=== PATIENT | female | born 1960 | race Caucasian/White ===

== ENCOUNTER 2016-08-15 13:41 | Emergency (ER) | payer BC, OTHER ==
[~2016-08-15 13:41] MED LIST: ALLEGRA PO; CELEBREX PO; CYMBALTA PO; FLUTISP; KLON0.5T PO; LIPITOR PO; PROTPAK PO; [UNRECOGNIZED DRUG - OTHER] PO
[2016-08-15] MEDS ORDERED: ONDANSETRON 4 MG ORAL DISINTEGRATING TAB (S0181) As Ordered ONE (18:21)
[2016-08-15] MEDS ORDERED: PERCOCET 5MG/325MG TAB As Ordered ONE (18:21)
--- NOTE | 2016-08-15 19:08 | REP ---
Left rib series: Five views including PA chest: History: Trauma. The patient reports breaking three ribs on the left side in December. Comparison is made with the 01/03/2016 prior rib series. Findings: There are healing fractures involving the left posterior 10th, 9th, and 8th ribs with callous formation. There is evidence of a healed or healing left lateral 7th rib fracture. No acute rib fracture is seen. There is an old healed 6th posterolateral rib fracture on the left as well. Impression: Multiple healed and healing left posterior and lateral rib fractures. The most recent fractures are the left 8th, 9th and 10th posterior ribs which show callus formation. Older left lateral 7th and 6th rib fractures are seen. These appear to be healed. No acute rib fracture is seen. Signed by Abel Barrera MD 08/15/2016 07:47 P
--- NOTE | 2016-08-15 19:20 | EDDOCDS ---
Physician Documentation [facility] Name: Juanis Arriaga Age: 55 yrs Sex: Female : 1960 Arrival Date: 08/15/2016 Time: 13:41 Bed PR Private MD: Thanh Tam J Disposition: 08/15/16 19:13 Discharged to Home/Self Care. Impression: Contusion of left front wall of thorax, Abrasion of other part of head. - Condition is Stable. - Discharge Instructions: Abrasion, Chest Contusion. - Prescriptions for Percocet 5- 325 mg Oral Tablet - take 1 tablet by ORAL route every 6 hours As needed MDD: 4 tabs; 12 tablet. - Medication Reconciliation, Local Pharmacy Hours form. - Follow up: Thanh Tam; When: Call to arrange an appointment; Reason: Recheck today's complaints, Continuance of care. - Problem is new. - Symptoms are unchanged. Historical: - Allergies: Ultracet; - Home Meds: 1. trazodone 100 mg Oral tab 1 tab nightly 2. Effexor XR 75 mg Oral cp24 once daily 3. Seroquel 100 mg Oral tab 1 tab nightly 4. clonazepam 0.5 mg Oral tab 1 tab three times a day as needed 5. metoprolol tartrate 25 mg oral tab once daily - PMHx: Ulcerative Colitis; IBS; Depression; Anxiety; - PSHx: Colon Resection; Hysterectomy; - Social history: Smoking status: Patient uses tobacco products, current every day smoker. No barriers to communication noted, The patient speaks fluent Somali, Speaks appropriately for age. - Family history: Not pertinent. - : The pt / caregiver states he / she is not on anticoagulants. Home medication list is obtained from the patient. - Exposure Risk Screening:: None identified. Vital Signs: 08/15 13:43 BP 151 / 91; Pulse 66; Resp 18 S; Temp 97.8(O); Pulse Ox 100% on R/A; Weight 63.5 kg / dd6 139.99 lbs (R); Height 5 ft. 5 in. (165.10 cm) (R); 15:55 BP 141 / 90; Pulse 63; Resp 18; Temp 98.4(TE); Pulse Ox 100% on R/A; Pain 10/10; ar3 19:14 BP 143 / 91 LA Sitting (auto/reg); Pulse 61; Resp 22; Temp 98.2(T); Pulse Ox 100% on bnb R/A; Pain 3/10; 13:43 Body Mass Index 23.30 (63.50 kg, 165.10 cm) dd6 MDM: 18:20 oxyCODONE-acetaminophen 5 mg-325 mg 1 tabs PO once ordered. mo1 18:20 Ondansetron ODT Oral Disintegrating Tablet 4 mg PO once ordered. mo1 18:20 Rib Unilat W/PA Chest Only Ordered. EDMS 18:32 Financial registration complete. gjb 18:34 [facility] Payment Agreement was scanned into [employer] and attached to record. gjb Administered Medications: 18:22 Drug: oxyCODONE-acetaminophen 1 tabs [oxycodone-acetaminophen 5 mg-325 mg tablet (1 jc4 tabs)] Route: PO; 18:23 Follow up: Response: Confirmed pt not driving. jc4 19:18 Follow up: Response: Pain is decreased pml 18:23 Drug: Ondansetron ODT 4 mg [ondansetron 4 mg disintegrating tablet (1 tabs)] Route: PO; jc4 Signatures: Dispatcher [employer] EDMS Cristel Santillan RN RN jc4 Ita Washington RN RN pml Uriah Randolph PA PA mo1 Zenia Reddy RN RN ead Beck, Gabriela gjb The chart was reviewed and I authenticate all verbal orders and agree with the evaluation and treatment provided.Attachments: 18:34 [facility] Payment Agreement gjb MTDD
--- NOTE | 2016-08-15 19:20 | EDDOCDS ---
Nurse's Notes [facility] Name: Juanis Arriaga Age: 55 yrs Sex: Female : 1960 Arrival Date: 08/15/2016 Time: 13:41 Bed PR Private MD: Thanh Tam J Diagnosis: Contusion of left front wall of thorax;Abrasion of other part of head Presentation: 08/15 13:45 Presenting complaint: Patient states: pt reports falling on ice on Monday. Abrasions ead to face and bruising to chest. Pt reports painful to take deep breath. Adult Sepsis Screening: The patient does not have new or worsening altered mentation. Patient's respiratory rate is less than 22. Systolic blood pressure is greater than 100. Patient has a qSOFA score of 0- Negative Sepsis Screen. Suicide/Homicide risk assessment- the patient denies having any suicidal and/or homicidal ideations and does not present with any other emotional, behavioral or mental health complaints. 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 Transition of care: patient was not received from another setting of care. 13:45 Acuity: SALMA Level 3 ead 13:45 Method Of Arrival: Walkin/Carried/Asstd ead Triage Assessment: 13:48 General: Appears in no apparent distress, Behavior is appropriate for age, cooperative. ead Pain: Location: anterior aspect of left upper chest and mid-sternal area Pain currently is 10 out of 10 on a pain scale. HIV screening NA for this visit Offered previously. Neurological: Level of Consciousness is awake, alert, Oriented to person, place, time. Respiratory: Airway is patent Respiratory effort is even, unlabored, Reports pain with respiration. Derm: Skin is pink, warm & dry. abrasion to forehead and bridge of nose. bruise to chest, reports falling and sliding on ice. Musculoskeletal: Reports pain in anterior aspect of left upper chest and mid-sternal area. Historical: - Allergies: Ultracet; - Home Meds: 1. trazodone 100 mg Oral tab 1 tab nightly 2. Effexor XR 75 mg Oral cp24 once daily 3. Seroquel 100 mg Oral tab 1 tab nightly 4. clonazepam 0.5 mg Oral tab 1 tab three times a day as needed 5. metoprolol tartrate 25 mg oral tab once daily - PMHx: Ulcerative Colitis; IBS; Depression; Anxiety; - PSHx: Colon Resection; Hysterectomy; - Social history: Smoking status: Patient uses tobacco products, current every day smoker. No barriers to communication noted, The patient speaks fluent Grenadian, Speaks appropriately for age. - Family history: Not pertinent. - : The pt / caregiver states he / she is not on anticoagulants. Home medication list is obtained from the patient. - Exposure Risk Screening:: None identified. Screenin:26 Screening information is obtained from the patient. Fall risk: No risks identified. jc4 Assistance ADL's: requires no assistance with activities of daily living. Abuse/DV Screen: The patient / caregiver reports he/she is: not in a situation that causes fear, pain or injury. Nutritional screening: No deficits noted. Advance Directives: Currently, there is a health care proxy, Lev Martinez, significant other. There is an active Power of Campus Administrative Assistant, Pavithra Parra, sister. home support is adequate. Assessment: 17:25 General: Appears uncomfortable, Behavior is cooperative. Pain: Pain currently is 10 out jc4 of 10 on a pain scale. Neurological: Level of Consciousness is awake, alert, Oriented to person, place, time. Respiratory: Airway is patent Respiratory effort is even, unlabored, Respiratory pattern is regular, symmetrical, Breath sounds are clear bilaterally. Derm: Skin is pink, warm & dry. Injury Description: Abrasion sustained to forehead and nose Bruise sustained to mid-sternal area is purple. 19:17 General: Appears in no apparent distress, comfortable, Behavior is appropriate for age, pml cooperative. Neurological: Level of Consciousness is awake, alert, Oriented to person, place, time. Cardiovascular: Capillary refill < 3 seconds. Respiratory: Airway is patent Respiratory effort is even, unlabored, Respiratory pattern is. GI: Abdomen is non- distended. Derm: Skin is pink, warm & dry. Vital Signs: 13:43 BP 151 / 91; Pulse 66; Resp 18 S; Temp 97.8(O); Pulse Ox 100% on R/A; Weight 63.5 kg dd6 (R); Height 5 ft. 5 in. (165.10 cm) (R); 15:55 BP 141 / 90; Pulse 63; Resp 18; Temp 98.4(TE); Pulse Ox 100% on R/A; Pain 10/10; ar3 19:14 BP 143 / 91 LA Sitting (auto/reg); Pulse 61; Resp 22; Temp 98.2(T); Pulse Ox 100% on bnb R/A; Pain 3/10; 13:43 Body Mass Index 23.30 (63.50 kg, 165.10 cm) dd6 Vitals: 13:43 Log In Time: August 15, 2016 at 13:41. dd6 ED Course: 13:42 Patient visited by Alton Martinez PCA. dd6 13:42 Thanh Tam is Private Physician. dd6 13:42 Patient moved to Waiting dd6 13:44 Patient moved to Pre RCE dd6 13:46 Triage Initiated ead 15:57 Patient visited by Shila Patricio PCA. ar3 17:22 Patient moved to Triage 1 jc4 17:23 Patient visited by Cristel Santillan RN. jc4 17:24 The patient / caregiver is instructed regarding the plan of care and ED course. jc4 17:31 Uriah Randolph PA is PHCP. mo1 17:31 Jennifer Chery MD is Attending Physician. mo1 18:19 Patient visited by Uriah Randolph PA. mo1 18:23 Patient moved to TR1 jc4 18:34 [facility] Payment Agreement was scanned into [employer] and attached to record. gjb 19:07 Patient moved to PR1 / 25 bnb 19:13 Thanh Tam is Referral Physician. mo1 19:15 Patient visited by Leta Downing PCA. bnb 19:17 No IV's were initiated during this patient's visit. No procedures done that require pml assistance. Administered Medications: 18:22 Drug: oxyCODONE-acetaminophen 1 tabs [oxycodone-acetaminophen 5 mg-325 mg tablet (1 jc4 tabs)] Route: PO; 18:23 Follow up: Response: Confirmed pt not driving. jc4 19:18 Follow up: Response: Pain is decreased pml 18:23 Drug: Ondansetron ODT 4 mg [ondansetron 4 mg disintegrating tablet (1 tabs)] Route: PO; jc4 Order Results: There are currently no results for this order. Outcome: 19:13 Discharge ordered by Provider. mo1 19:17 Discharge Assessment: Patient awake, alert and oriented x 3. No cognitive and/or pml functional deficits noted. Patient verbalized understanding of disposition instructions. patient administered narcotics - yes. Pt provided with safe discharge. The following High Risk Discharge criteria are identified: None. Discharged to home ambulatory, with significant other. Condition: good Condition: stable. Discharge instructions given to patient, Instructed on discharge instructions, follow up and referral plans. medication usage, no driving heavy equipment, Demonstrated understanding of instructions, medications, Pt was receptive of discharge instructions/ teaching. Prescriptions given X 1. No special radiology studies were completed. Property sent home with patient. 19:19 Patient left the ED. pml Signatures: Alton Martinez, RADIATION THERAPY TECHNICIAN RADIATION THERAPY TECHNICIAN dd6 Shila Patricio, RADIATION THERAPY TECHNICIAN RADIATION THERAPY TECHNICIAN ar3 Cristel Santillan RN RN jc4 Ita Washington RN RN pml Uriah Randolph PA PA mo1 Zenia Reddy RN RN ead Beck, Gabriela gjb Becker, Brittney, RADIATION THERAPY TECHNICIAN RADIATION THERAPY TECHNICIAN bnb GENEVA
--- NOTE | 2016-08-17 20:19 | EDDOCDS ---
Nurse's Notes [facility] Name: Juanis Arriaga Age: 55 yrs Sex: Female : 1960 Arrival Date: 08/15/2016 Time: 13:41 Bed PR Private MD: Thanh Tam J Diagnosis: Contusion of left front wall of thorax;Abrasion of other part of head Presentation: 08/15 13:45 Presenting complaint: Patient states: pt reports falling on ice on Monday. Abrasions ead to face and bruising to chest. Pt reports painful to take deep breath. Adult Sepsis Screening: The patient does not have new or worsening altered mentation. Patient's respiratory rate is less than 22. Systolic blood pressure is greater than 100. Patient has a qSOFA score of 0- Negative Sepsis Screen. Suicide/Homicide risk assessment- the patient denies having any suicidal and/or homicidal ideations and does not present with any other emotional, behavioral or mental health complaints. 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 Transition of care: patient was not received from another setting of care. 13:45 Acuity: SALMA Level 3 ead 13:45 Method Of Arrival: Walkin/Carried/Asstd ead Triage Assessment: 13:48 General: Appears in no apparent distress, Behavior is appropriate for age, cooperative. ead Pain: Location: anterior aspect of left upper chest and mid-sternal area Pain currently is 10 out of 10 on a pain scale. HIV screening NA for this visit Offered previously. Neurological: Level of Consciousness is awake, alert, Oriented to person, place, time. Respiratory: Airway is patent Respiratory effort is even, unlabored, Reports pain with respiration. Derm: Skin is pink, warm & dry. abrasion to forehead and bridge of nose. bruise to chest, reports falling and sliding on ice. Musculoskeletal: Reports pain in anterior aspect of left upper chest and mid-sternal area. Historical: - Allergies: Ultracet; - Home Meds: 1. trazodone 100 mg Oral tab 1 tab nightly 2. Effexor XR 75 mg Oral cp24 once daily 3. Seroquel 100 mg Oral tab 1 tab nightly 4. clonazepam 0.5 mg Oral tab 1 tab three times a day as needed 5. metoprolol tartrate 25 mg oral tab once daily - PMHx: Ulcerative Colitis; IBS; Depression; Anxiety; - PSHx: Colon Resection; Hysterectomy; - Social history: Smoking status: Patient uses tobacco products, current every day smoker. No barriers to communication noted, The patient speaks fluent Gibraltarian, Speaks appropriately for age. - Family history: Not pertinent. - : The pt / caregiver states he / she is not on anticoagulants. Home medication list is obtained from the patient. - Exposure Risk Screening:: None identified. Screenin:26 Screening information is obtained from the patient. Fall risk: No risks identified. jc4 Assistance ADL's: requires no assistance with activities of daily living. Abuse/DV Screen: The patient / caregiver reports he/she is: not in a situation that causes fear, pain or injury. Nutritional screening: No deficits noted. Advance Directives: Currently, there is a health care proxy, Lev Martinez, significant other. There is an active Power of Transit Survey Worker, Pavithra Parra, sister. home support is adequate. Assessment: 17:25 General: Appears uncomfortable, Behavior is cooperative. Pain: Pain currently is 10 out jc4 of 10 on a pain scale. Neurological: Level of Consciousness is awake, alert, Oriented to person, place, time. Respiratory: Airway is patent Respiratory effort is even, unlabored, Respiratory pattern is regular, symmetrical, Breath sounds are clear bilaterally. Derm: Skin is pink, warm & dry. Injury Description: Abrasion sustained to forehead and nose Bruise sustained to mid-sternal area is purple. 19:17 General: Appears in no apparent distress, comfortable, Behavior is appropriate for age, pml cooperative. Neurological: Level of Consciousness is awake, alert, Oriented to person, place, time. Cardiovascular: Capillary refill < 3 seconds. Respiratory: Airway is patent Respiratory effort is even, unlabored, Respiratory pattern is. GI: Abdomen is non- distended. Derm: Skin is pink, warm & dry. Vital Signs: 13:43 BP 151 / 91; Pulse 66; Resp 18 S; Temp 97.8(O); Pulse Ox 100% on R/A; Weight 63.5 kg dd6 (R); Height 5 ft. 5 in. (165.10 cm) (R); 15:55 BP 141 / 90; Pulse 63; Resp 18; Temp 98.4(TE); Pulse Ox 100% on R/A; Pain 10/10; ar3 19:14 BP 143 / 91 LA Sitting (auto/reg); Pulse 61; Resp 22; Temp 98.2(T); Pulse Ox 100% on bnb R/A; Pain 3/10; 13:43 Body Mass Index 23.30 (63.50 kg, 165.10 cm) dd6 Vitals: 13:43 Log In Time: August 15, 2016 at 13:41. dd6 ED Course: 13:42 Patient visited by Alton Martinez PCA. dd6 13:42 Thanh Tam is Private Physician. dd6 13:42 Patient moved to Waiting dd6 13:44 Patient moved to Pre RCE dd6 13:46 Triage Initiated ead 15:57 Patient visited by Shila Patricio PCA. ar3 17:22 Patient moved to Triage 1 jc4 17:23 Patient visited by Cristel Santillan RN. jc4 17:24 The patient / caregiver is instructed regarding the plan of care and ED course. jc4 17:31 Uriah Randolph PA is PHCP. mo1 17:31 Jennifer Chery MD is Attending Physician. mo1 18:19 Patient visited by Uriah Randolph PA. mo1 18:23 Patient moved to TR1 jc4 18:34 [facility] Payment Agreement was scanned into [employer] and attached to record. gjb 19:07 Patient moved to PR1 / 25 bnb 19:13 Thanh Tam is Referral Physician. mo1 19:15 Patient visited by Leta Downing PCA. bnb 19:17 No IV's were initiated during this patient's visit. No procedures done that require pml assistance. 19:45 Rib Unilat W/PA Chest Only Returned. EDMS 08/16 10:54 T-Sheet-- Draft Copy was scanned into [employer] and attached to record. gb 10:54 Radiology Report was scanned into [employer] and attached to record. gb Administered Medications: 08/15 18:22 Drug: oxyCODONE-acetaminophen 1 tabs [oxycodone-acetaminophen 5 mg-325 mg tablet (1 jc4 tabs)] Route: PO; 18:23 Follow up: Response: Confirmed pt not driving. jc4 19:18 Follow up: Response: Pain is decreased pml 18:23 Drug: Ondansetron ODT 4 mg [ondansetron 4 mg disintegrating tablet (1 tabs)] Route: PO; jc4 Order Results: Radiology Order: Rib Unilat W/PA Chest Only Test: Rib Unilat W/PA Chest Only REASON FOR EXAMINATION: Trauma; Left rib series: Five views including PA chest:; ; History: Trauma. The patient reports breaking three ribs on the left side in; December.; ; Comparison is made with the 01/03/2016 prior rib series.; ; Findings: There are healing fractures involving the left posterior 10th, 9th,; and 8th ribs with callous formation. There is evidence of a healed or healing; left lateral 7th rib fracture. No acute rib fracture is seen. There is an old; healed 6th posterolateral rib fracture on the left as well.; ; Impression:; ; Multiple healed and healing left posterior and lateral rib fractures. The most; recent fractures are the left 8th, 9th and 10th posterior ribs which show callus; formation. Older left lateral 7th and 6th rib fractures are seen. These appear; to be healed. No acute rib fracture is seen.; ; ; Signed by; Abel Barrera MD 08/15/2016 07:47 P; Outcome: 19:13 Discharge ordered by Provider. mo1 19:17 Discharge Assessment: Patient awake, alert and oriented x 3. No cognitive and/or pml functional deficits noted. Patient verbalized understanding of disposition instructions. patient administered narcotics - yes. Pt provided with safe discharge. The following High Risk Discharge criteria are identified: None. Discharged to home ambulatory, with significant other. Condition: good Condition: stable. Discharge instructions given to patient, Instructed on discharge instructions, follow up and referral plans. medication usage, no driving heavy equipment, Demonstrated understanding of instructions, medications, Pt was receptive of discharge instructions/ teaching. Prescriptions given X 1. No special radiology studies were completed. Property sent home with patient. 19:19 Patient left the ED. pml Signatures: Dispatcher [employer] EDMS Divya Blake, Reg Reg gb Alton Martinez, HOSPITAL FELLOW HOSPITAL FELLOW dd6 Shila Patricio, HOSPITAL FELLOW HOSPITAL FELLOW ar3 Cristel Santillan RN RN jc4 Ita Washington RN RN pml Uriah Randolph PA PA mo1 Zenia Reddy RN RN Hollie Brown Brittney, HOSPITAL FELLOW HOSPITAL FELLOW bnb Chart Complete MTDD
--- NOTE | 2016-08-17 20:19 | EDDOCDS ---
Physician Documentation [facility] Name: Juanis Arriaga Age: 55 yrs Sex: Female : 1960 Arrival Date: 08/15/2016 Time: 13:41 Bed PR Private MD: Thanh Tam J Disposition: 08/15/16 19:13 Discharged to Home/Self Care. Impression: Contusion of left front wall of thorax, Abrasion of other part of head. - Condition is Stable. - Discharge Instructions: Abrasion, Chest Contusion. - Prescriptions for Percocet 5- 325 mg Oral Tablet - take 1 tablet by ORAL route every 6 hours As needed MDD: 4 tabs; 12 tablet. - Medication Reconciliation, Local Pharmacy Hours form. - Follow up: Thanh Tam; When: Call to arrange an appointment; Reason: Recheck today's complaints, Continuance of care. - Problem is new. - Symptoms are unchanged. Historical: - Allergies: Ultracet; - Home Meds: 1. trazodone 100 mg Oral tab 1 tab nightly 2. Effexor XR 75 mg Oral cp24 once daily 3. Seroquel 100 mg Oral tab 1 tab nightly 4. clonazepam 0.5 mg Oral tab 1 tab three times a day as needed 5. metoprolol tartrate 25 mg oral tab once daily - PMHx: Ulcerative Colitis; IBS; Depression; Anxiety; - PSHx: Colon Resection; Hysterectomy; - Social history: Smoking status: Patient uses tobacco products, current every day smoker. No barriers to communication noted, The patient speaks fluent Belarusian, Speaks appropriately for age. - Family history: Not pertinent. - : The pt / caregiver states he / she is not on anticoagulants. Home medication list is obtained from the patient. - Exposure Risk Screening:: None identified. Vital Signs: 08/15 13:43 BP 151 / 91; Pulse 66; Resp 18 S; Temp 97.8(O); Pulse Ox 100% on R/A; Weight 63.5 kg / dd6 139.99 lbs (R); Height 5 ft. 5 in. (165.10 cm) (R); 15:55 BP 141 / 90; Pulse 63; Resp 18; Temp 98.4(TE); Pulse Ox 100% on R/A; Pain 10/10; ar3 19:14 BP 143 / 91 LA Sitting (auto/reg); Pulse 61; Resp 22; Temp 98.2(T); Pulse Ox 100% on bnb R/A; Pain 3/10; 13:43 Body Mass Index 23.30 (63.50 kg, 165.10 cm) dd6 MDM: 18:20 oxyCODONE-acetaminophen 5 mg-325 mg 1 tabs PO once ordered. mo1 18:20 Ondansetron ODT Oral Disintegrating Tablet 4 mg PO once ordered. mo1 18:20 Rib Unilat W/PA Chest Only Ordered. EDMS 18:32 Financial registration complete. [facility] 18:34 [facility] Payment Agreement was scanned into [employer] and attached to record. [facility] 08/16 10:54 T-Sheet-- Draft Copy was scanned into [employer] and attached to record. gb 10:54 Radiology Report was scanned into [employer] and attached to record. gb 20:14 ED course: dr tam faxed formal report of rib series for fu mlg. ml Administered Medications: 08/15 18:22 Drug: oxyCODONE-acetaminophen 1 tabs [oxycodone-acetaminophen 5 mg-325 mg tablet (1 jc4 tabs)] Route: PO; 18:23 Follow up: Response: Confirmed pt not driving. jc4 19:18 Follow up: Response: Pain is decreased pml 18:23 Drug: Ondansetron ODT 4 mg [ondansetron 4 mg disintegrating tablet (1 tabs)] Route: PO; jc4 Signatures: Dispatcher [employer] EDID Blaine Vargas MD MD ml Barnhardt, Gloria, Reg Reg gb Cristel Santillan RN RN jc4 Ita Washington RN RN pml O'Hagan, Michael, PA PA mo1 Zenia ReddyRN Hollie Valladares The chart was reviewed and I authenticate all verbal orders and agree with the evaluation and treatment provided.Attachments: 18:34 [facility] Payment Agreement [facility] 08/16 10:54 T-Sheet-- Draft Copy gb Chart Complete MTDD
--- NOTE | 2016-08-17 20:19 | EDDOCDS ---
Physician Documentation [facility] Name: Juanis Arriaga Age: 55 yrs Sex: Female : 1960 Arrival Date: 08/15/2016 Time: 13:41 Bed PR Private MD: Thanh Tam J Disposition: 08/15/16 19:13 Discharged to Home/Self Care. Impression: Contusion of left front wall of thorax, Abrasion of other part of head. - Condition is Stable. - Discharge Instructions: Abrasion, Chest Contusion. - Prescriptions for Percocet 5- 325 mg Oral Tablet - take 1 tablet by ORAL route every 6 hours As needed MDD: 4 tabs; 12 tablet. - Medication Reconciliation, Local Pharmacy Hours form. - Follow up: Thanh Tam; When: Call to arrange an appointment; Reason: Recheck today's complaints, Continuance of care. - Problem is new. - Symptoms are unchanged. Historical: - Allergies: Ultracet; - Home Meds: 1. trazodone 100 mg Oral tab 1 tab nightly 2. Effexor XR 75 mg Oral cp24 once daily 3. Seroquel 100 mg Oral tab 1 tab nightly 4. clonazepam 0.5 mg Oral tab 1 tab three times a day as needed 5. metoprolol tartrate 25 mg oral tab once daily - PMHx: Ulcerative Colitis; IBS; Depression; Anxiety; - PSHx: Colon Resection; Hysterectomy; - Social history: Smoking status: Patient uses tobacco products, current every day smoker. No barriers to communication noted, The patient speaks fluent Iranian, Speaks appropriately for age. - Family history: Not pertinent. - : The pt / caregiver states he / she is not on anticoagulants. Home medication list is obtained from the patient. - Exposure Risk Screening:: None identified. Vital Signs: 08/15 13:43 BP 151 / 91; Pulse 66; Resp 18 S; Temp 97.8(O); Pulse Ox 100% on R/A; Weight 63.5 kg / dd6 139.99 lbs (R); Height 5 ft. 5 in. (165.10 cm) (R); 15:55 BP 141 / 90; Pulse 63; Resp 18; Temp 98.4(TE); Pulse Ox 100% on R/A; Pain 10/10; ar3 19:14 BP 143 / 91 LA Sitting (auto/reg); Pulse 61; Resp 22; Temp 98.2(T); Pulse Ox 100% on bnb R/A; Pain 3/10; 13:43 Body Mass Index 23.30 (63.50 kg, 165.10 cm) dd6 MDM: 18:20 oxyCODONE-acetaminophen 5 mg-325 mg 1 tabs PO once ordered. mo1 18:20 Ondansetron ODT Oral Disintegrating Tablet 4 mg PO once ordered. mo1 18:20 Rib Unilat W/PA Chest Only Ordered. EDMS 18:32 Financial registration complete. [facility] 18:34 [facility] Payment Agreement was scanned into EpiSensor and attached to record. [facility] 08/16 10:54 T-Sheet-- Draft Copy was scanned into EpiSensor and attached to record. gb 10:54 Radiology Report was scanned into EpiSensor and attached to record. gb 20:14 ED course: dr tam faxed formal report of rib series for fu mlg. ml Administered Medications: 08/15 18:22 Drug: oxyCODONE-acetaminophen 1 tabs [oxycodone-acetaminophen 5 mg-325 mg tablet (1 jc4 tabs)] Route: PO; 18:23 Follow up: Response: Confirmed pt not driving. jc4 19:18 Follow up: Response: Pain is decreased pml 18:23 Drug: Ondansetron ODT 4 mg [ondansetron 4 mg disintegrating tablet (1 tabs)] Route: PO; jc4 Signatures: Dispatcher [employer] EDCA Blaine Vargas MD MD ml Barnhardt, Gloria, Reg Reg gb Cristel Santillan RN RN jc4 Ita Washington RN RN pml O'Hagan, Michael, PA PA mo1 Zenia ReddyRN Hollie Valladares The chart was reviewed and I authenticate all verbal orders and agree with the evaluation and treatment provided.Attachments: 18:34 [facility] Payment Agreement [facility] 08/16 10:54 T-Sheet-- Draft Copy gb Chart Complete MTDD
== END 2016-08-15 19:19 | disposition home or self-care (01) ==
LOC: M ED 13:41
DX: S00.81XA Abrasion of other part of head, initial encounter (principal); S20.212A Contusion of left front wall of thorax, initial encounter; W00.9XXA Unspecified fall due to ice and snow, initial encounter; Y92.89 Other specified places as the place of occurrence of the external cause; Y93.89 Activity, other specified; Y99.8 Other external cause status; K58.9 Irritable bowel syndrome, unspecified; F32.9 Major depressive disorder, single episode, unspecified; F41.9 Anxiety disorder, unspecified; Z90.79 Acquired absence of other genital organ(s); Z90.49 Acquired absence of other specified parts of digestive tract; F17.200 Nicotine dependence, unspecified, uncomplicated; Z79.899 Other long term (current) drug therapy; Z88.8 Allergy status to other drugs, medicaments and biological substances

== ENCOUNTER 2016-09-24 12:46 | Emergency (ER) | payer OTHER ==
[2016-09-24] MEDS ORDERED: KETOROLAC 30 MG/ML VIAL (J1885) As Ordered ONE (13:26)
[2016-09-24] MEDS ORDERED: methylPREDNISolone INJ 125 MG/2 ML VIAL (J2930) As Ordered ONE (13:27)
--- NOTE | 2016-09-24 14:03 | EDDOCDS ---
Nurse's Notes [facility] Name: Juanis Arriaga Age: 56 yrs Sex: Female : 1960 Arrival Date: 09/24/2016 Time: 12:46 Bed TR8 Private MD: Thanh Tam J Diagnosis: Lumbago with sciatica, right side Presentation: 09/24 12:50 Presenting complaint: Patient states: Low back pain radiates to right hip and right leg mlb1 began "several months" ago worse recently. Acute neurological deficits are not present. Mechanism of Injury: No Mechanism of Injury. Adult Sepsis Screening: The patient does not have new or worsening altered mentation. Patient's respiratory rate is less than 22. Systolic blood pressure is greater than 100. Patient has a qSOFA score of 0- Negative Sepsis Screen. Suicide/Homicide risk assessment- the patient denies having any suicidal and/or homicidal ideations and does not present with any other emotional, behavioral or mental health complaints. Status: Patient is not a executive services administrator or dependent. Transition of care: patient was not received from another setting of care. 12:50 Acuity: SALMA Level 3 mlb1 12:50 Method Of Arrival: Walkin/Carried/Asstd mlb1 Triage Assessment: 12:53 General: Appears distressed, Behavior is appropriate for age, cooperative. Pain: mlb1 Location: low back area Pain currently is 10 out of 10 on a pain scale. Pain radiates to right leg. Musculoskeletal: Range of motion intact in all extremities. 12:54 HIV screening NA for this visit Offered previously. mlb1 Historical: - Allergies: Ultracet; - Home Meds: 1. clonazepam 0.5 mg Oral tab 1 tab three times a day as needed 2. Effexor XR 75 mg Oral cp24 once daily 3. Seroquel 100 mg Oral tab 1 tab nightly 4. trazodone 100 mg Oral tab 1 tab nightly 5. metoprolol tartrate 25 mg Oral tab once daily - PMHx: Anxiety; Depression; IBS; Ulcerative Colitis; - PSHx: Colon Resection; Hysterectomy; lumbar surgery; - Social history: Smoking status: Patient uses tobacco products, light tobacco smoker. No barriers to communication noted, The patient speaks fluent Belgian, Speaks appropriately for age. - Family history: Not pertinent. - : The pt / caregiver states he / she is not on anticoagulants. Home medication list is obtained from the patient. - Exposure Risk Screening:: None identified. Screenin:59 Screening information is obtained from the patient. Fall risk: No risks identified. ms18 Assistance ADL's: requires no assistance with activities of daily living. Abuse/DV Screen: The patient / caregiver reports he/she is: not in a situation that causes fear, pain or injury. Nutritional screening: No deficits noted. Advance Directives: There is no living will. home support is adequate. Assessment: 13:59 General: Appears in no apparent distress, comfortable, Behavior is appropriate for age, ms18 cooperative, pleasant, quiet. Pain: Location: low back area Pain currently is 10 out of 10 on a pain scale. Pain began 8 months ago. Neurological: Level of Consciousness is awake, alert, obeys commands, Oriented to person, place, time. Respiratory: Airway is patent Respiratory effort is even, unlabored. Derm: Skin is pink, warm & dry. Vital Signs: 12:48 BP 149 / 82; Pulse 69; Resp 18; Temp 98.1; Pulse Ox 100% ; Weight 64.41 kg; Height 5 cmb ft. 5 in. (165.10 cm); Pain 10/10; 13:56 BP 126 / 81; Pulse 58; Resp 16; Temp 98.6(O); Pulse Ox 99% on R/A; Pain 8/10; sew 12:48 Body Mass Index 23.63 (64.41 kg, 165.10 cm) cmb Vitals: 12:48 Log In Time: September 24, 2016 at 12:46. cmb ED Course: 12:47 Patient visited by Minerva Erwin. cmb 12:47 Patient moved to Waiting cmb 12:48 Thanh Tam is Private Physician. cmb 12:49 Patient moved to Pre RCE cmb 12:50 Patient visited by Uriah Canada, SILVANA. mlb1 12:51 Triage Initiated mlb1 12:54 Patient visited by Uriah Canada RN. mlb1 12:54 Patient moved to Triage 3 mlb1 12:56 Jason Hall PA-C is [facility]. cc10 12:56 True Daniel MD is Attending Physician. cc10 13:10 Patient visited by Jason Hall PA-C. cc10 13:10 Patient visited by Jason Hall PA-C. cc10 13:17 [facility] is Referral Physician. cc10 13:34 Patient moved to PR1 / 25 ms18 13:56 Patient visited by Fozia Cox. sew 13:59 Patient moved to TR8 ms18 13:59 The patient / caregiver is instructed regarding the plan of care and ED course. Patient ms18 has correct armband on for positive identification. Property sent home with patient. :Personal belongings accompany Pt. 13:59 No IV's were initiated during this patient's visit. No procedures done that require ms18 assistance. Administered Medications: 13:34 Drug: methylPREDNISolone Sodium Succinate 125 mg [methylprednisolone sodium succ 125 mg ms18 solution for injection (125 mg)] Route: IM; Site: left gluteus; 13:34 Drug: ketorolac 60 mg [ketorolac 30 mg/mL (1 mL) injection solution (2 mL)] Route: IM; ms18 Site: left gluteus; Order Results: There are currently no results for this order. Outcome: 13:18 Discharge ordered by Provider. cc10 13:59 Discharge Assessment: patient administered narcotics - no. The following High Risk ms18 Discharge criteria are identified: None. Discharged to home ambulatory, via wheelchair. Condition: good Condition: stable Condition: improved. Discharge instructions given to patient, Instructed on discharge instructions, follow up and referral plans. medication usage, Demonstrated understanding of instructions, medications, Pt was receptive of discharge instructions/ teaching. Prescriptions given X 2. No special radiology studies were completed. 14:03 Patient left the ED. ms18 Signatures: Uriah Canada, RN RN mlb1 Minerva Erwin cmb Fozia Cox Colin, PA-C PA-C cc10 Leti Lerma,SILVANA RN ms18 MTDD
--- NOTE | 2016-09-24 14:04 | EDDOCDS ---
Physician Documentation [facility] Name: Juanis Arriaga Age: 56 yrs Sex: Female : 1960 Arrival Date: 09/24/2016 Time: 12:46 Bed TR8 Private MD: Thanh Tam J Disposition: 09/24/16 13:18 Discharged to Home/Self Care. Impression: Lumbago with sciatica, right side. - Condition is Stable. - Discharge Instructions: Sciatica. - Prescriptions for Diclofenac Sodium 75 mg Oral Tablet, Delayed Release (E.C.) - take 1 tablet by ORAL route 2 times per day; 30 tablet. Prednisone 20 mg Oral Tablet - take 2 tablet by ORAL route once daily for 5 days; 10 tablet. - Medication Reconciliation form. - Follow up: [facility]; When: Call to arrange an appointment; Reason: Wound/Symptom Recheck, Recheck today's complaints, Worsening of conditions, Continuance of care. - Problem is chronic. - Symptoms have improved. Historical: - Allergies: Ultracet; - Home Meds: 1. clonazepam 0.5 mg Oral tab 1 tab three times a day as needed 2. Effexor XR 75 mg Oral cp24 once daily 3. Seroquel 100 mg Oral tab 1 tab nightly 4. trazodone 100 mg Oral tab 1 tab nightly 5. metoprolol tartrate 25 mg Oral tab once daily - PMHx: Anxiety; Depression; IBS; Ulcerative Colitis; - PSHx: Colon Resection; Hysterectomy; lumbar surgery; - Social history: Smoking status: Patient uses tobacco products, light tobacco smoker. No barriers to communication noted, The patient speaks fluent Upper Sorbian, Speaks appropriately for age. - Family history: Not pertinent. - : The pt / caregiver states he / she is not on anticoagulants. Home medication list is obtained from the patient. - Exposure Risk Screening:: None identified. Vital Signs: 09/24 12:48 BP 149 / 82; Pulse 69; Resp 18; Temp 98.1; Pulse Ox 100% ; Weight 64.41 kg / 142 lbs; cmb Height 5 ft. 5 in. (165.10 cm); Pain 10/10; 13:56 BP 126 / 81; Pulse 58; Resp 16; Temp 98.6(O); Pulse Ox 99% on R/A; Pain 8/10; sew 12:48 Body Mass Index 23.63 (64.41 kg, 165.10 cm) cmb MDM: 13:17 methylPREDNISolone Sodium Succinate 125 mg IM once ordered. cc10 13:17 ketorolac 60 mg IM once ordered. cc10 13:56 Financial registration complete. mm15 Administered Medications: 13:34 Drug: methylPREDNISolone Sodium Succinate 125 mg [methylprednisolone sodium succ 125 mg ms18 solution for injection (125 mg)] Route: IM; Site: left gluteus; 13:34 Drug: ketorolac 60 mg [ketorolac 30 mg/mL (1 mL) injection solution (2 mL)] Route: IM; ms18 Site: left gluteus; Signatures: Uriah Canada RN RN mlb1 Ruth Armando mm15 Jason Hall PA-C PAJannie cc10 Leti Lerma RN RN ms18 MTDD
--- NOTE | 2016-09-26 15:04 | EDDOCDS ---
Nurse's Notes [facility] Name: Juanis Arriaga Age: 56 yrs Sex: Female : 1960 Arrival Date: 09/24/2016 Time: 12:46 Bed TR8 Private MD: Thanh Tam J Diagnosis: Lumbago with sciatica, right side Presentation: 09/24 12:50 Presenting complaint: Patient states: Low back pain radiates to right hip and right leg mlb1 began "several months" ago worse recently. Acute neurological deficits are not present. Mechanism of Injury: No Mechanism of Injury. Adult Sepsis Screening: The patient does not have new or worsening altered mentation. Patient's respiratory rate is less than 22. Systolic blood pressure is greater than 100. Patient has a qSOFA score of 0- Negative Sepsis Screen. Suicide/Homicide risk assessment- the patient denies having any suicidal and/or homicidal ideations and does not present with any other emotional, behavioral or mental health complaints. Status: Patient is not a director clinical information services or dependent. Transition of care: patient was not received from another setting of care. 12:50 Acuity: SALMA Level 3 mlb1 12:50 Method Of Arrival: Walkin/Carried/Asstd mlb1 Triage Assessment: 12:53 General: Appears distressed, Behavior is appropriate for age, cooperative. Pain: mlb1 Location: low back area Pain currently is 10 out of 10 on a pain scale. Pain radiates to right leg. Musculoskeletal: Range of motion intact in all extremities. 12:54 HIV screening NA for this visit Offered previously. mlb1 Historical: - Allergies: Ultracet; - Home Meds: 1. clonazepam 0.5 mg Oral tab 1 tab three times a day as needed 2. Effexor XR 75 mg Oral cp24 once daily 3. Seroquel 100 mg Oral tab 1 tab nightly 4. trazodone 100 mg Oral tab 1 tab nightly 5. metoprolol tartrate 25 mg Oral tab once daily - PMHx: Anxiety; Depression; IBS; Ulcerative Colitis; - PSHx: Colon Resection; Hysterectomy; lumbar surgery; - Social history: Smoking status: Patient uses tobacco products, light tobacco smoker. No barriers to communication noted, The patient speaks fluent Kazakh, Speaks appropriately for age. - Family history: Not pertinent. - : The pt / caregiver states he / she is not on anticoagulants. Home medication list is obtained from the patient. - Exposure Risk Screening:: None identified. Screenin:59 Screening information is obtained from the patient. Fall risk: No risks identified. ms18 Assistance ADL's: requires no assistance with activities of daily living. Abuse/DV Screen: The patient / caregiver reports he/she is: not in a situation that causes fear, pain or injury. Nutritional screening: No deficits noted. Advance Directives: There is no living will. home support is adequate. Assessment: 13:59 General: Appears in no apparent distress, comfortable, Behavior is appropriate for age, ms18 cooperative, pleasant, quiet. Pain: Location: low back area Pain currently is 10 out of 10 on a pain scale. Pain began 8 months ago. Neurological: Level of Consciousness is awake, alert, obeys commands, Oriented to person, place, time. Respiratory: Airway is patent Respiratory effort is even, unlabored. Derm: Skin is pink, warm & dry. Vital Signs: 12:48 BP 149 / 82; Pulse 69; Resp 18; Temp 98.1; Pulse Ox 100% ; Weight 64.41 kg; Height 5 cmb ft. 5 in. (165.10 cm); Pain 10/10; 13:56 BP 126 / 81; Pulse 58; Resp 16; Temp 98.6(O); Pulse Ox 99% on R/A; Pain 8/10; sew 12:48 Body Mass Index 23.63 (64.41 kg, 165.10 cm) cmb Vitals: 12:48 Log In Time: September 24, 2016 at 12:46. cmb ED Course: 12:47 Patient visited by Minerva Erwin. cmb 12:47 Patient moved to Waiting cmb 12:48 Thanh Tam is Private Physician. cmb 12:49 Patient moved to Pre RCE cmb 12:50 Patient visited by Uriah Canada, SILVAAN. mlb1 12:51 Triage Initiated mlb1 12:54 Patient visited by Uriah Canada RN. mlb1 12:54 Patient moved to Triage 3 mlb1 12:56 [facility] cc10 12:56 True Daniel MD is Attending Physician. cc10 13:10 Patient visited by Jason Hall PA-C. cc10 13:10 Patient visited by Jason Hall PA-C. cc10 13:17 [facility] is Referral Physician. cc10 13:34 Patient moved to PR1 / 25 ms18 13:56 Patient visited by Fozia Cox. sew 13:59 Patient moved to TR8 ms18 13:59 The patient / caregiver is instructed regarding the plan of care and ED course. Patient ms18 has correct armband on for positive identification. Property sent home with patient. :Personal belongings accompany Pt. 13:59 No IV's were initiated during this patient's visit. No procedures done that require ms18 assistance. 14:03 [facility] Payment Agreement was scanned into Enplug and attached to record. mm15 16:53 T-Sheet-- Draft Copy was scanned into Enplug and attached to record. klr Administered Medications: 13:34 Drug: methylPREDNISolone Sodium Succinate 125 mg [methylprednisolone sodium succ 125 mg ms18 solution for injection (125 mg)] Route: IM; Site: left gluteus; 13:34 Drug: ketorolac 60 mg [ketorolac 30 mg/mL (1 mL) injection solution (2 mL)] Route: IM; ms18 Site: left gluteus; Order Results: There are currently no results for this order. Outcome: 13:18 Discharge ordered by Provider. cc10 13:59 Discharge Assessment: patient administered narcotics - no. The following High Risk ms18 Discharge criteria are identified: None. Discharged to home ambulatory, via wheelchair. Condition: good Condition: stable Condition: improved. Discharge instructions given to patient, Instructed on discharge instructions, follow up and referral plans. medication usage, Demonstrated understanding of instructions, medications, Pt was receptive of discharge instructions/ teaching. Prescriptions given X 2. No special radiology studies were completed. 14:03 Patient left the ED. ms18 Signatures: Uriah Canada RN RN mlb1 Minerva Erwin cmb Fozia Cox Marlynn mm15 Jason Hall PA-C PA-C cc10 Leti Lerma RN RN ms18 Paola Rahman r Chart Complete MTDD
--- NOTE | 2016-09-26 15:04 | EDDOCDS ---
Physician Documentation [facility] Name: Juanis Arriaga Age: 56 yrs Sex: Female : 1960 Arrival Date: 09/24/2016 Time: 12:46 Bed TR8 Private MD: Thanh Tam J Disposition: 09/24/16 13:18 Discharged to Home/Self Care. Impression: Lumbago with sciatica, right side. - Condition is Stable. - Discharge Instructions: Sciatica. - Prescriptions for Diclofenac Sodium 75 mg Oral Tablet, Delayed Release (E.C.) - take 1 tablet by ORAL route 2 times per day; 30 tablet. Prednisone 20 mg Oral Tablet - take 2 tablet by ORAL route once daily for 5 days; 10 tablet. - Medication Reconciliation form. - Follow up: [facility]; When: Call to arrange an appointment; Reason: Wound/Symptom Recheck, Recheck today's complaints, Worsening of conditions, Continuance of care. - Problem is chronic. - Symptoms have improved. Historical: - Allergies: Ultracet; - Home Meds: 1. clonazepam 0.5 mg Oral tab 1 tab three times a day as needed 2. Effexor XR 75 mg Oral cp24 once daily 3. Seroquel 100 mg Oral tab 1 tab nightly 4. trazodone 100 mg Oral tab 1 tab nightly 5. metoprolol tartrate 25 mg Oral tab once daily - PMHx: Anxiety; Depression; IBS; Ulcerative Colitis; - PSHx: Colon Resection; Hysterectomy; lumbar surgery; - Social history: Smoking status: Patient uses tobacco products, light tobacco smoker. No barriers to communication noted, The patient speaks fluent Polish, Speaks appropriately for age. - Family history: Not pertinent. - : The pt / caregiver states he / she is not on anticoagulants. Home medication list is obtained from the patient. - Exposure Risk Screening:: None identified. Vital Signs: 09/24 12:48 BP 149 / 82; Pulse 69; Resp 18; Temp 98.1; Pulse Ox 100% ; Weight 64.41 kg / 142 lbs; cmb Height 5 ft. 5 in. (165.10 cm); Pain 10/10; 13:56 BP 126 / 81; Pulse 58; Resp 16; Temp 98.6(O); Pulse Ox 99% on R/A; Pain 8/10; sew 12:48 Body Mass Index 23.63 (64.41 kg, 165.10 cm) cmb MDM: 13:17 methylPREDNISolone Sodium Succinate 125 mg IM once ordered. cc10 13:17 ketorolac 60 mg IM once ordered. cc10 13:56 Financial registration complete. mm15 14:03 [facility] Payment Agreement was scanned into Swipes[employer] and attached to record. mm15 16:53 T-Sheet-- Draft Copy was scanned into Swipes[employer] and attached to record. klr Administered Medications: 13:34 Drug: methylPREDNISolone Sodium Succinate 125 mg [methylprednisolone sodium succ 125 mg ms18 solution for injection (125 mg)] Route: IM; Site: left gluteus; 13:34 Drug: ketorolac 60 mg [ketorolac 30 mg/mL (1 mL) injection solution (2 mL)] Route: IM; ms18 Site: left gluteus; Signatures: Uriah Canada RN RN mlb1 Ruth Armando mm15 Jason Hall, PAJadeC PA-C cc10 Leti Lerma RN RN ms18 Paola Rahman klr The chart was reviewed and I authenticate all verbal orders and agree with the evaluation and treatment provided.Attachments: 14:03 [facility] Payment Agreement mm15 16:53 T-Sheet-- Draft Copy klr Chart Complete MTDD
--- NOTE | 2016-09-26 15:04 | EDDOCDS ---
Physician Documentation [facility] Name: Juanis Arriaga Age: 56 yrs Sex: Female : 1960 Arrival Date: 09/24/2016 Time: 12:46 Bed TR8 Private MD: Thanh Tam J Disposition: 09/24/16 13:18 Discharged to Home/Self Care. Impression: Lumbago with sciatica, right side. - Condition is Stable. - Discharge Instructions: Sciatica. - Prescriptions for Diclofenac Sodium 75 mg Oral Tablet, Delayed Release (E.C.) - take 1 tablet by ORAL route 2 times per day; 30 tablet. Prednisone 20 mg Oral Tablet - take 2 tablet by ORAL route once daily for 5 days; 10 tablet. - Medication Reconciliation form. - Follow up: [facility]; When: Call to arrange an appointment; Reason: Wound/Symptom Recheck, Recheck today's complaints, Worsening of conditions, Continuance of care. - Problem is chronic. - Symptoms have improved. Historical: - Allergies: Ultracet; - Home Meds: 1. clonazepam 0.5 mg Oral tab 1 tab three times a day as needed 2. Effexor XR 75 mg Oral cp24 once daily 3. Seroquel 100 mg Oral tab 1 tab nightly 4. trazodone 100 mg Oral tab 1 tab nightly 5. metoprolol tartrate 25 mg Oral tab once daily - PMHx: Anxiety; Depression; IBS; Ulcerative Colitis; - PSHx: Colon Resection; Hysterectomy; lumbar surgery; - Social history: Smoking status: Patient uses tobacco products, light tobacco smoker. No barriers to communication noted, The patient speaks fluent Kyrgyz, Speaks appropriately for age. - Family history: Not pertinent. - : The pt / caregiver states he / she is not on anticoagulants. Home medication list is obtained from the patient. - Exposure Risk Screening:: None identified. Vital Signs: 09/24 12:48 BP 149 / 82; Pulse 69; Resp 18; Temp 98.1; Pulse Ox 100% ; Weight 64.41 kg / 142 lbs; cmb Height 5 ft. 5 in. (165.10 cm); Pain 10/10; 13:56 BP 126 / 81; Pulse 58; Resp 16; Temp 98.6(O); Pulse Ox 99% on R/A; Pain 8/10; sew 12:48 Body Mass Index 23.63 (64.41 kg, 165.10 cm) cmb MDM: 13:17 methylPREDNISolone Sodium Succinate 125 mg IM once ordered. cc10 13:17 ketorolac 60 mg IM once ordered. cc10 13:56 Financial registration complete. mm15 14:03 [facility] Payment Agreement was scanned into Khush and attached to record. mm15 16:53 T-Sheet-- Draft Copy was scanned into Khush and attached to record. klr Administered Medications: 13:34 Drug: methylPREDNISolone Sodium Succinate 125 mg [methylprednisolone sodium succ 125 mg ms18 solution for injection (125 mg)] Route: IM; Site: left gluteus; 13:34 Drug: ketorolac 60 mg [ketorolac 30 mg/mL (1 mL) injection solution (2 mL)] Route: IM; ms18 Site: left gluteus; Signatures: Uriah Canada RN RN mlb1 Ruth Armando mm15 Jason Hall, PAJadeC PA-C cc10 Leti Lerma RN RN ms18 Paola Rahman klr The chart was reviewed and I authenticate all verbal orders and agree with the evaluation and treatment provided.Attachments: 14:03 [facility] Payment Agreement mm15 16:53 T-Sheet-- Draft Copy klr Chart Complete MTDD
== END 2016-09-24 14:03 | disposition home or self-care (01) ==
LOC: M ED 12:46
DX: M54.31 Sciatica, right side (principal); F41.9 Anxiety disorder, unspecified; F32.9 Major depressive disorder, single episode, unspecified; K58.9 Irritable bowel syndrome, unspecified; Z90.49 Acquired absence of other specified parts of digestive tract; Z72.0 Tobacco use; Z79.899 Other long term (current) drug therapy; Z88.5 Allergy status to narcotic agent

== ENCOUNTER 2016-10-23 13:14 | Emergency (ER) | payer OTHER ==
[~2016-10-23] VITALS: Ht 165.1 cm; Wt 64.4 kg
[2016-10-23] MEDS ORDERED: VENL75CA47 (13:27)
[2016-10-23] MEDS ORDERED: QUET1TAB8 (13:27)
[2016-10-23] MEDS ORDERED: TRAZ100T4 (13:27)
[2016-10-23] MEDS ORDERED: TOPR25TA PO (13:27)
--- NOTE | 2016-10-23 14:40 | REP ---
Clinical: Trauma. Technique: Frontal view of the pelvis with neutral and frog lateral views of the right hip. Findings: Frontal view of the pelvis is unremarkable. Age-related degenerative changes to the hips noted. No acute fracture or dislocation. Impression: No acute fracture dislocation. 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 Signed by Savage Liu MD 10/23/2016 02:32 P
[2016-10-23] MEDS ORDERED: PERC5TAB6 PO (14:49)
[2016-10-23] MEDS ORDERED: MOBI7.5T10 PO (14:49)
[2016-10-23] MEDS ORDERED: PERCOCET 5MG/325MG TAB PO ONE (15:00)
[2016-10-23 15:01] VITALS: BP 169/92
== END 2016-10-23 15:03 | disposition home or self-care (01) ==
LOC: M ED 14:46
DX: M25.551 Pain in right hip (principal); W19.XXXA Unspecified fall, initial encounter; Y92.9 Unspecified place or not applicable; Y93.9 Activity, unspecified; Y99.9 Unspecified external cause status; F41.9 Anxiety disorder, unspecified; F32.9 Major depressive disorder, single episode, unspecified; F17.200 Nicotine dependence, unspecified, uncomplicated; Z79.899 Other long term (current) drug therapy

== ENCOUNTER 2016-11-10 12:32 | Emergency (ER) | payer OTHER ==
[~2016-11-10] VITALS: Ht 165.1 cm; Wt 64.4 kg
[~2016-11-10 12:32] MED LIST changes: +MOBI7.5T10 PO; +PERC5TAB6 PO; +QUET1TAB8; +TOPR25TA PO; +TRAZ100T4; +VENL75CA47
[2016-11-10] MEDS ORDERED: diphenhydrAMINE INJ 50MG/ML VIAL (J1200) IV STA (13:34)
[2016-11-10] MEDS ORDERED: METOCLOPRAMIDE INJ 10MG/2ML VIAL (J2765) IV ONE (13:45)
[2016-11-10] MEDS ORDERED: NS 1,000 ML IV ONE (13:45)
[2016-11-10] MEDS ORDERED: GABA-282 PO (14:45)
[2016-11-10 15:30] VITALS: BP 132/68
== END 2016-11-10 15:32 | disposition home or self-care (01) ==
LOC: M ED 13:28
DX: B02.29 Other postherpetic nervous system involvement (principal)

== ENCOUNTER → 2016-11-28 | Outpatient (CLI) | payer OTHER ==
[~2016-11-28] MED LIST changes: +GABA-282 PO
== END ==
LOC: M OUTALCOH 13:24
PROVIDERS: ATTEND Psychiatry & Neurology Psychiatry
DX: F10.20 Alcohol dependence, uncomplicated (principal)

== ENCOUNTER 2017-03-01 12:29 | Emergency (ER) | payer OTHER ==
[~2017-03-01] VITALS: Ht 165.1 cm; Wt 57.7 kg
[~2017-03-01 12:29] MED LIST changes: +MOBI4TAB PO; -MOBI7.5T10 PO; +PERC5TAB12 PO; -PERC5TAB6 PO; -QUET1TAB8; +QUET1TAB8 PO; +TRAZ-136 PO; -TRAZ100T4; -VENL75CA47; +VENL75CA47 PO
[2017-03-01] MEDS ORDERED: CETI10TA PO (12:37)
[2017-03-01] MEDS ORDERED: ONDANSETRON 4MG/2ML VIAL (J2405) IV ONE (13:15)
[2017-03-01] MEDS ORDERED: NS 1,000 ML IV ONE (13:15)
[2017-03-01] MEDS ORDERED: KETOROLAC 30 MG/ML VIAL (J1885) IV ONE (13:15)
[2017-03-01 13:40] LABS: BASO # 0.1 K/mm3 (0.0-0.2); BASO % 1.5 % (0.0-1.0); EOS # 0.1 K/mm3 (0.0-0.50); LARGE UNSTAINED CELL # 0.1 K/mm3 (0.0-0.4); LARGE UNSTAINED CELL % 2.6 % (0.0-4.0); LYMPH # 1.3 K/mm3 (1.5-4.5); LYMPH % 24.3 % (24.0-44.0); MEAN CORPUSCULAR HEMOGLOBIN 30.6 pg (27.0-33.0); MEAN CORPUSCULAR HGB CONC 33.5 g/dl (32.0-36.5); MEAN CORPUSCULAR VOLUME 91.2 fl (80.0-96.0); MONO # 0.3 K/mm3 (0.0-0.8); NEUTROPHILS % 62.6 % (36.0-66.0); PLATELET COUNT, AUTOMATED 245 k/mm3 (150-450); RED CELL DISTRIBUTION WIDTH 12.7 % (11.5-14.5); WHITE BLOOD COUNT 4.8 K/mm3 (4.0-10.0)
[2017-03-01 13:41] LABS: MICROSCOPIC INDICATED? MAN NO (NO)
[2017-03-01 13:55] LABS: ALBUMIN/GLOBULIN RATIO 1.05 (1.00-1.93); ALKALINE PHOSPHATASE 67 U/L (45-117); ALT/SGPT 22 U/L (12-78); AMYLASE 60 U/L (25-115); ANION GAP 5 MEQ/L (8-16); AST/SGOT 16 U/L (15-37); BILIRUBIN,DIRECT < 0.1 MG/DL (0.0-0.2); BILIRUBIN,TOTAL 0.3 MG/DL (0.2-1.0); BLOOD UREA NITROGEN 16 MG/DL (7-18); CALCIUM LEVEL 8.9 MG/DL (8.5-10.1); CARBON DIOXIDE LEVEL 29 MEQ/L (21-32); CHLORIDE LEVEL 103 MEQ/L (98-107); CREATININE FOR GFR 0.89 MG/DL (0.55-1.02); GLOMERULAR FILTRATION RATE > 60.0 (>51); GLUCOSE, FASTING 95 MG/DL (70-105); POTASSIUM SERUM 3.9 MEQ/L (3.5-5.1); SODIUM LEVEL 137 MEQ/L (136-145); TOTAL PROTEIN 7.8 GM/DL (6.4-8.2)
[2017-03-01] MEDS ORDERED: BENT20TA PO (14:07)
[2017-03-01] MEDS ORDERED: HYDROmorphone HCL 1 MG/ML SYRINGE (J1170) IV ONE (14:15)
[2017-03-01 14:53] VITALS: BP 122/72
[2017-03-20] MEDS ORDERED: HYDR-3713 PO (08:40)
[2017-03-20] MEDS ORDERED: EFFE75CA75 PO (08:40)
[2017-03-20] MEDS ORDERED: EFFE150C PO (08:40)
[2017-03-20] MEDS ORDERED: CLON0.5T PO (08:40)
[2017-03-20] MEDS ORDERED: ATOR1TAB21 PO (08:40)
[2017-03-20] MEDS ORDERED: SERO1TAB PO (08:44)
== END 2017-03-01 14:55 | disposition home or self-care (01) ==
LOC: M ED 12:29
DX: K58.9 Irritable bowel syndrome, unspecified (principal); G89.29 Other chronic pain; F17.200 Nicotine dependence, unspecified, uncomplicated; Z79.899 Other long term (current) drug therapy
CPT/HCPCS: 80048; 80076; 81002; 82150; 83605; 83690; 85025; 96374; 96375; 99283; J1170; J1885; J2405

== ENCOUNTER 2017-03-17 21:15 | Emergency (ER) | payer OTHER ==
[~2017-03-17] VITALS: Ht 165.1 cm; Wt 64.0 kg
[~2017-03-17 21:15] MED LIST changes: +BENT20TA PO; +CETI10TA PO
[2017-03-17] MEDS ORDERED: NS 1,000 ML IV ONE (22:00)
[2017-03-17] MEDS ORDERED: KETOROLAC 30 MG/ML VIAL (J1885) IV ONE (22:00)
[2017-03-17] MEDS ORDERED: BACITRACIN OINT 30GM TOP ONE (22:00)
[2017-03-17] MEDS ORDERED: LIDOCAINE W/EPINEPHRINE 1% 20ML VIAL SC ONE (22:00)
[2017-03-17 23:33] VITALS: BP 125/80
[2017-03-20] MEDS ORDERED: ATOR1TAB21 PO (08:40)
[2017-03-20] MEDS ORDERED: EFFE150C PO (08:40)
[2017-03-20] MEDS ORDERED: HYDR-3713 PO (08:40)
[2017-03-20] MEDS ORDERED: CLON0.5T PO (08:40)
[2017-03-20] MEDS ORDERED: EFFE75CA75 PO (08:40)
[2017-03-20] MEDS ORDERED: SERO1TAB PO (08:44)
== END 2017-03-17 23:37 | disposition home or self-care (01) ==
LOC: M ED 21:15 → EDBD 21:15 → M ED 23:37
DX: S01.01XA Laceration without foreign body of scalp, initial encounter (principal); W01.10XA Fall on same level from slipping, tripping and stumbling with subsequent striking against unspecified object, initial encounter; Y92.094 Garage of other non-institutional residence as the place of occurrence of the external cause; Y93.89 Activity, other specified; Y99.9 Unspecified external cause status; I10 Essential (primary) hypertension; K58.9 Irritable bowel syndrome, unspecified; K52.9 Noninfective gastroenteritis and colitis, unspecified; F41.9 Anxiety disorder, unspecified; F32.9 Major depressive disorder, single episode, unspecified; F17.200 Nicotine dependence, unspecified, uncomplicated; Z79.899 Other long term (current) drug therapy
CPT/HCPCS: 12002; 96361; 96374; 99284; J1885

== ENCOUNTER 2017-03-28 12:06 | Emergency (ER) | payer OTHER ==
[~2017-03-28] VITALS: Ht 165.1 cm; Wt 63.6 kg
[~2017-03-28 12:06] MED LIST changes: +ATOR1TAB21 PO; +CLON0.5T PO; +EFFE150C PO; +EFFE75CA75 PO; +HYDR-3713 PO; +SERO1TAB PO
[2017-03-28 12:07] VITALS: BP 130/91
[2017-03-29] MEDS ORDERED: METO1TAB32 PO (12:26)
== END 2017-03-28 13:28 | disposition home or self-care (01) ==
LOC: M ED 12:06
DX: Z48.02 Encounter for removal of sutures (principal); K58.9 Irritable bowel syndrome, unspecified; F33.9 Major depressive disorder, recurrent, unspecified; F41.9 Anxiety disorder, unspecified; Z79.899 Other long term (current) drug therapy

== ENCOUNTER 2017-03-29 11:44 | Day surgery (SDC) | payer OTHER ==
[~2017-03-29] VITALS: Ht 165.1 cm; Wt 63.5 kg
[~2017-03-29 11:44] MED LIST changes: +BUPIVACAINE/EPIN 0.25% 30 ML VIAL As Ordered ONE
[2017-03-29] MEDS ORDERED: LR 1,000 ML IV ONE (12:00)
[2017-03-29] MEDS ORDERED: METO1TAB32 PO (12:26)
[2017-03-29] MEDS ORDERED: MIDAZOLAM INJ 2 MG/2 ML VIAL (J2250) As Ordered ONE (12:59)
[2017-03-29] MEDS ORDERED: fentaNYL 100 MCG/2 ML INJECTION (J3010) As Ordered ONE (13:00)
[2017-03-29] MEDS ORDERED: ePHEDrine SULFATE 25 MG/5 ML(5MG/ML) SYRINGE As Ordered ONE (13:29)
[2017-03-29] MEDS ORDERED: PHENYLephrine HCL 500 MCG/5 ML (100MCG/ML) SYRINGE (J2370) As Ordered ONE (13:37)
[2017-03-29] MEDS ORDERED: ROCURONIUM BROMIDE 50 MG/5 ML VIAL/SYRINGE As Ordered ONE (13:38)
[2017-03-29] MEDS ORDERED: LIDOCAINE 2% INJ 100 MG/5 ML SDV (FOR ANES.) As Ordered ONE (13:38)
[2017-03-29] MEDS ORDERED: PROPOFOL 200 MG/20 ML VIAL As Ordered ONE (13:38)
[2017-03-29] MEDS ORDERED: dexameTHASONE 4 MG/ML 1ML VIAL (J1100) As Ordered ONE (13:38)
[2017-03-29] MEDS ORDERED: ONDANSETRON 4MG/2ML VIAL (J2405) As Ordered ONE (13:39)
[2017-03-29] MEDS ORDERED: KETOROLAC 60 MG/2 ML VIAL (J1885) As Ordered ONE (13:39)
[2017-03-29] MEDS ORDERED: HYDROmorphone HCL 2 MG/ML 1ML VIAL (J1170) As Ordered ONE (13:46)
[2017-03-29] MEDS ORDERED: SUGAMMADEX SODIUM 500 MG/5 ML VIAL (BRIDION) As Ordered ONE (14:21)
[2017-03-29] MEDS ORDERED: NORCO, ANEXSIA 5/325MG TABLET (HYDROcodone/ACETAMINOPHEN) PO PRN (15:00)
[2017-03-29] MEDS ORDERED: LR 1,000 ML IV SCH (15:00)
[2017-03-29] MEDS ORDERED: ONDANSETRON 4MG/2ML VIAL (J2405) IV PRN (15:00)
[2017-03-29] MEDS ORDERED: fentaNYL 100 MCG/2 ML INJECTION (J3010) IV PRN (15:00)
[2017-03-29] MEDS ORDERED: PERCOCET 5MG/325MG TAB As Ordered ONE (15:11)
[2017-03-29] MEDS ORDERED: PERCOCET 5MG/325MG TAB PO PRN (15:45)
[2017-03-29 16:25] VITALS: BP 128/78
--- NOTE | 2017-03-30 06:19 | RO ---
DATE OF PROCEDURE: 03/29/2017 PREOPERATIVE DIAGNOSIS: Chronic cholecystitis. POSTOPERATIVE DIAGNOSIS: Chronic cholecystitis. PROCEDURE: Laparoscopic cholecystectomy. SURGEON: Anthony Cardoza DO STATISTICAL REPORTING ANALYST: None. ANESTHESIA: General. ESTIMATED BLOOD LOSS: 5. COMPLICATIONS: None. INDICATIONS FOR PROCEDURE: The patient is 56-year-old female who presents with a history of persistent right upper quadrant abdominal pain that she has had for many years. She had a HIDA scan done in her early teens and was advised not to eat any fatty greasy foods for the rest of her life. For the past couple months, she has had increasing right upper quadrant pain as well a CAT scan that showed a little bit of wall thickening. Recommendation is to proceed with laparoscopic, possible open cholecystectomy. Risks and benefits of procedure not limited but including bleeding, infection, hernia formation, damage surrounding structures, need further surgery was discussed in detail with the patient. Informed was obtained. Procedure was planned. DESCRIPTION OF PROCEDURE: The patient brought back to operating room #3 after sufficient sedation. The abdomen was sterilely prepped and draped. Next, a time-out was done to confirm proper patient and proper procedure. Following that a 5 mm incision made in left upper quadrant. Veress needle was inserted and the abdomen was insufflated to 50 mmHg. Next, a Veress needle was removed and a 5 mm Optiview port was used to gain access to the abdomen. Once the abdomen was entered, there extensive adhesions and only a very small window visible in the left upper quadrant. Another 5 mm port was placed and carefully adhesions were taken down using sharp dissection. Using a sharp dissection, a very small window was able to be made to be able to see into the right lower quadrant, which revealed no adhesions over there. A port was then placed in the right midabdomen. The camera was inserted on the right side and there were no adhesions on the entire right side of the abdomen. Another port was placed in the right upper quadrant using those two ports and sharp dissection adhesions were taken down from the right towards the left until the midline was free of adhesions, also revealing a midline hernia about 3 cm in size superior to the umbilicus. Once this area was all freed up, a 5 mm port was placed in the umbilicus, 11 mm port subxiphoid, then the gallbladder procedure was completed. The fundus of gallbladder was grasped and elevated up towards the right shoulder cystic duct and cystic artery were both then clearly identified. They are both doubly clipped and cut. Once they were cut, th.0.e gallbladder was removed from gallbladder fossa using electrocautery and brought out through the subxiphoid port site in a 10 mm EndoCatch bag. Right upper quadrant was examined to confirm hemostasis. The abdomen was then desufflated. Skin incisions closed with #4-0 Vicryl subcuticular sutures. The abdomen cleaned and dried. Steri-Strips, 4 x 4 and tape were applied, thus ending procedure.
== END 2017-03-29 17:08 | disposition home or self-care (01) ==
LOC: M SDC 11:44
PROVIDERS: ATTEND Surgery
DX: K81.1 Chronic cholecystitis (principal); E78.5 Hyperlipidemia, unspecified; F41.9 Anxiety disorder, unspecified; F32.9 Major depressive disorder, single episode, unspecified; G47.00 Insomnia, unspecified; F17.210 Nicotine dependence, cigarettes, uncomplicated; Z79.899 Other long term (current) drug therapy

== ENCOUNTER 2017-05-09 13:27 | Emergency (ER) | payer MEDICARE, OTHER, SELFPAY ==
[~2017-05-09] VITALS: Ht 165.1 cm; Wt 63.6 kg
[~2017-05-09 13:27] MED LIST changes: -BUPIVACAINE/EPIN 0.25% 30 ML VIAL As Ordered ONE; +METO1TAB32 PO
[2017-05-09 13:28] VITALS: BP 153/91
--- NOTE | 2017-05-09 16:24 | REP ---
RIGHT FOOT, FOUR VIEWS: HISTORY: Trauma. There is no acute fracture or dislocation. The joint spaces are normal in appearance. IMPRESSION: There is no acute fracture or dislocation. Signed by Emmanuel Rios MD 05/09/2017 04:30 P
== END 2017-05-09 15:37 | disposition home or self-care (01) ==
LOC: M ED 13:27
DX: S93.601A Unspecified sprain of right foot, initial encounter (principal); W19.XXXA Unspecified fall, initial encounter; Y92.099 Unspecified place in other non-institutional residence as the place of occurrence of the external cause; Y93.9 Activity, unspecified; Y99.9 Unspecified external cause status; I10 Essential (primary) hypertension; F17.200 Nicotine dependence, unspecified, uncomplicated; Z79.899 Other long term (current) drug therapy

== ENCOUNTER → 2017-05-18 | Outpatient (CLI) | payer MEDICARE, OTHER, SELFPAY ==
[~2017-05-18] MED LIST changes: +CLON-412 PO; +RANI150T PO
== END ==
LOC: M OUTALCOH 07:38
PROVIDERS: ATTEND Psychiatry & Neurology Psychiatry
DX: F10.20 Alcohol dependence, uncomplicated (principal)

== ENCOUNTER → 2017-05-25 | Outpatient (CLI) | payer MEDICARE, OTHER, SELFPAY ==
--- NOTE | 2017-05-25 14:00 | REP ---
ABDOMINAL SERIES: Supine and erect views of the abdomen demonstrate no evidence of free intraperitoneal air and no compelling evidence for bowel obstruction. I do not see significantly dilated small bowel loops. Multiple phleboliths are seen in the pelvis. The patient appears to have had a prior laminectomy at L4 and L5. There are mild degenerative changes of the spine and hips. Metallic clips are seen in the right upper quadrant. Old left rib fractures are present. There is no acute infiltrate in either lung as seen on the accompanying PA view of the chest. The heart is normal in size and the mediastinal silhouette is unremarkable. IMPRESSION: No acute abnormalities. No free air or obstruction. No infiltrate in either lung. Signed by Anthony Estrada MD 05/25/2017 02:41 P
== END ==
LOC: M RAD 12:45
PROVIDERS: ATTEND Physician Assistant Medical
DX: R19.7 Diarrhea, unspecified (principal); R10.9 Unspecified abdominal pain

== ENCOUNTER 2017-06-16 10:00 | Outpatient (RCR) | payer MEDICARE, OTHER, SELFPAY ==
[~2017-06-16 10:00] MED LIST changes: -CLON-412 PO; -RANI150T PO
[2017-07-12] MEDS ORDERED: CLON-412 PO (13:36)
[2017-07-12] MEDS ORDERED: RANI150T PO (13:36)
== END 2017-06-29 ==
LOC: M OUTALCOH 10:00
PROVIDERS: ATTEND Psychiatry & Neurology Psychiatry
DX: F10.20 Alcohol dependence, uncomplicated (principal); Z72.0 Tobacco use

== ENCOUNTER 2017-07-04 10:00 | Outpatient (RCR) | payer MEDICARE, OTHER, SELFPAY | END 2017-07-30 | LOC: M OUTALCOH 10:00 | DX: F10.20 Alcohol dependence, uncomplicated (principal); Z72.0 Tobacco use | CPT/HCPCS: 90853 ==

== ENCOUNTER 2017-08-14 08:41 | Day surgery (SDC) | payer MEDICARE ==
[2017-08-14] MEDS ORDERED: NS 1,000 ML IV (09:00)
[2017-08-14] MEDS ORDERED: PROPOFOL 200 MG/20 ML VIAL As Ordered (09:50)
[2017-08-14] MEDS ORDERED: LIDOCAINE 2% MDV 20 ML VIAL As Ordered (09:50)
== END 2017-08-14 10:36 | disposition home or self-care (01) ==
LOC: M OPP 08:41
DX: Z12.11 Encounter for screening for malignant neoplasm of colon (principal); Z80.0 Family history of malignant neoplasm of digestive organs; R63.4 Abnormal weight loss; D12.0 Benign neoplasm of cecum; D12.3 Benign neoplasm of transverse colon; Z98.0 Intestinal bypass and anastomosis status; K64.8 Other hemorrhoids; R19.5 Other fecal abnormalities; R00.2 Palpitations; E78.5 Hyperlipidemia, unspecified; E05.90 Thyrotoxicosis, unspecified without thyrotoxic crisis or storm; K52.9 Noninfective gastroenteritis and colitis, unspecified; K58.9 Irritable bowel syndrome, unspecified; R19.7 Diarrhea, unspecified; K21.9 Gastro-esophageal reflux disease without esophagitis; R12 Heartburn; Z86.718 Personal history of other venous thrombosis and embolism; Z86.19 Personal history of other infectious and parasitic diseases; M19.90 Unspecified osteoarthritis, unspecified site; M54.9 Dorsalgia, unspecified; F41.9 Anxiety disorder, unspecified; F32.9 Major depressive disorder, single episode, unspecified; G47.00 Insomnia, unspecified; I63.9 Cerebral infarction, unspecified; R06.83 Snoring; F17.210 Nicotine dependence, cigarettes, uncomplicated; Z88.8 Allergy status to other drugs, medicaments and biological substances; Z79.899 Other long term (current) drug therapy; Z80.51 Family history of malignant neoplasm of kidney; Z80.49 Family history of malignant neoplasm of other genital organs
CPT/HCPCS: 45385

== ENCOUNTER → 2017-08-16 | Outpatient (CLI) | payer MEDICARE | LOC: M OUTALCOH 11:27 | DX: F10.20 Alcohol dependence, uncomplicated (principal) | CPT/HCPCS: H0001 ==

== ENCOUNTER 2017-08-25 13:59 | Outpatient (RCR) | payer MEDICARE | END 2017-08-30 | LOC: M OUTALCOH 13:59 | DX: F10.20 Alcohol dependence, uncomplicated (principal); Z72.0 Tobacco use | CPT/HCPCS: 90834 ==

== ENCOUNTER → 2017-08-30 | Outpatient (REF) | payer MEDICARE ==
[2017-08-30 16:11] LABS: AMYLASE 97 U/L (25-115)
[2017-08-30 16:11] LABS: LIPASE 441 U/L (73-393); VALPROIC ACID (DEPAKOTE) 66.7 UG/ML (50.0-100.0)
== END ==
LOC: M LABDRAW1 11:50
DX: F31.9 Bipolar disorder, unspecified (principal)
CPT/HCPCS: 82150

== ENCOUNTER → 2017-09-27 | Outpatient (RCR) | payer MEDICARE | LOC: M OUTALCOH 13:29 | DX: F10.20 Alcohol dependence, uncomplicated (principal); Z72.0 Tobacco use | CPT/HCPCS: 90834 ==

== ENCOUNTER 2017-10-03 10:00 | Outpatient (RCR) | payer MEDICARE | END 2017-10-28 | LOC: M OUTALCOH 10-05 10:00 | DX: F10.20 Alcohol dependence, uncomplicated (principal); Z72.0 Tobacco use | CPT/HCPCS: 90853 ==

== ENCOUNTER 2017-10-19 12:59 | Emergency (ER) | payer MEDICARE ==
[2017-10-19] MEDS: PERCOCET 5MG/325MG TAB PO (15:20)
== END 2017-10-19 17:56 | disposition home or self-care (01) ==
LOC: M ED 12:59
DX: S82.52XA Displaced fracture of medial malleolus of left tibia, initial encounter for closed fracture (principal); S82.832A Other fracture of upper and lower end of left fibula, initial encounter for closed fracture; W19.XXXA Unspecified fall, initial encounter; Y92.009 Unspecified place in unspecified non-institutional (private) residence as the place of occurrence of the external cause; Y93.01 Activity, walking, marching and hiking; Z86.79 Personal history of other diseases of the circulatory system
CPT/HCPCS: 73590

== ENCOUNTER 2017-11-24 13:20 | Emergency (ER) | payer MEDICARE | END 2017-11-24 15:42 | disposition home or self-care (01) | LOC: M ED 13:20 | DX: S82.831A Other fracture of upper and lower end of right fibula, initial encounter for closed fracture (principal); W18.39XA Other fall on same level, initial encounter; Y92.002 Bathroom of unspecified non-institutional (private) residence as the place of occurrence of the external cause; K58.9 Irritable bowel syndrome, unspecified; E03.9 Hypothyroidism, unspecified; F33.9 Major depressive disorder, recurrent, unspecified; F41.9 Anxiety disorder, unspecified; F17.200 Nicotine dependence, unspecified, uncomplicated; Z86.73 Personal history of transient ischemic attack (TIA), and cerebral infarction without residual deficits; Z98.890 Other specified postprocedural states; Z88.5 Allergy status to narcotic agent; Z88.8 Allergy status to other drugs, medicaments and biological substances; Z79.899 Other long term (current) drug therapy | CPT/HCPCS: 73590 ==

== ENCOUNTER → 2018-08-15 | Outpatient (REF) | payer MEDICARE ==
[~2018-08-15] MED LIST changes: +BUSP10TA PO; +CLON-412 PO; -CLON0.5T PO; +CLON0.5T8 PO; +DIVA250T7; -EFFE150C PO; +EFFE150C2 PO; +EFFE75CA2 PO; -EFFE75CA75 PO; -GABA-282 PO; +GABA-843 PO; +RANI150T PO; -TOPR25TA PO; +TOPR25TA13 PO; -TRAZ-136 PO; +TRAZ-163 PO; +VENL150C43; +WHEEMIS3 XX
[2018-08-15 13:01] LABS: HEMATOCRIT 35.8 % (36.0-47.0); MEAN CORPUSCULAR HEMOGLOBIN 31.4 pg (27.0-33.0); MEAN CORPUSCULAR HGB CONC 33.5 g/dl (32.0-36.5); MEAN CORPUSCULAR VOLUME 93.7 fl (80.0-96.0); PLATELET COUNT, AUTOMATED 215 10^3/uL (150-450); RED BLOOD COUNT 3.82 10^6/uL (4.00-5.40); WHITE BLOOD COUNT 10.8 10^3/uL (4.0-10.0)
[2018-08-15 13:57] LABS: ALBUMIN 3.8 GM/DL (3.2-5.2); ALT/SGPT 29 U/L (12-78); BILIRUBIN,TOTAL 0.4 MG/DL (0.2-1.0); BLOOD UREA NITROGEN 14 MG/DL (7-18); CALCIUM LEVEL 8.9 MG/DL (8.5-10.1); CARBON DIOXIDE LEVEL 29 MEQ/L (21-32); CHLORIDE LEVEL 101 MEQ/L (98-107); CHOLESTEROL LEVEL 162 MG/DL (< 200); CREATININE FOR GFR 0.98 MG/DL (0.55-1.30); GLOMERULAR FILTRATION RATE > 60.0 (>51); GLUCOSE, FASTING 95 MG/DL (70-100); POTASSIUM SERUM 4.7 MEQ/L (3.5-5.1); SODIUM LEVEL 138 MEQ/L (136-145); TOTAL PROTEIN 6.8 GM/DL (6.4-8.2); VALPROIC ACID (DEPAKOTE) 43.8 UG/ML (50.0-100.0)
[2018-08-15 14:34] LABS: HEMOGLOBIN A1c 5.7 %
== END ==
LOC: M LABDRAW1 12:44
PROVIDERS: ATTEND Nurse Practitioner Psychiatric/Mental Health
DX: Z51.81 Encounter for therapeutic drug level monitoring (principal); Z79.899 Other long term (current) drug therapy
CPT/HCPCS: 36415; 80053; 80164; 82465; 83036; 85027; G0463

== ENCOUNTER 2019-03-12 13:26 | Emergency (ER) | payer MEDICARE ==
[~2019-03-12] VITALS: Ht 165.1 cm; Wt 69.3 kg
[~2019-03-12 13:26] MED LIST changes: +FLUT1SPR2; -FLUTISP; +TOPR25TA PO; -TOPR25TA13 PO
[2019-03-12] MEDS ORDERED: ZOLP10TA2 PO (13:35)
[2019-03-12] MEDS ORDERED: NS 1,000 ML IV ONE (14:15)
[2019-03-12] MEDS ORDERED: KETOROLAC 30 MG/ML VIAL (J1885) IV ONE (14:15)
[2019-03-12] MEDS ORDERED: PANTOPRAZOLE 40MG INJ (PROTONIX) (C9113) IV ONE (14:15)
[2019-03-12] MEDS ORDERED: ONDANSETRON 4MG/2ML VIAL (J2405) IV ONE (14:15)
[2019-03-12 14:39] LABS: BASO # 0.1 10^3/uL (0.0-0.2); BASO % 0.9 % (0.0-1.0); EOS % 0.3 % (0.0-3.0); HEMATOCRIT 40.9 % (36.0-47.0); HEMOGLOBIN 14.1 g/dl (12.0-15.5); LYMPH # 1.2 10^3/uL (1.5-4.5); LYMPH % 15.4 % (24.0-44.0); MEAN CORPUSCULAR HEMOGLOBIN 32.7 pg (27.0-33.0); MEAN CORPUSCULAR HGB CONC 34.5 g/dl (32.0-36.5); MEAN CORPUSCULAR VOLUME 94.9 fl (80.0-96.0); MONO # 0.8 10^3/uL (0.0-0.8); NEUTROPHILS # 5.8 10^3/uL (1.8-7.7); NEUTROPHILS % 73.1 % (36.0-66.0); PLATELET COUNT, AUTOMATED 274 10^3/uL (150-450); RED BLOOD COUNT 4.31 10^6/uL (4.00-5.40)
[2019-03-12 15:03] LABS: ALBUMIN 4.4 GM/DL (3.2-5.2); ALT/SGPT 36 U/L (12-78); BILIRUBIN,DIRECT 0.1 MG/DL (0.0-0.2); BILIRUBIN,TOTAL 0.4 MG/DL (0.2-1.0); LIPASE 219 U/L (73-393)
[2019-03-12 15:31] LABS: BLOOD UREA NITROGEN 8 MG/DL (7-18); CALCIUM LEVEL 9.8 MG/DL (8.5-10.1); CARBON DIOXIDE LEVEL 28 MEQ/L (21-32); CHLORIDE LEVEL 106 MEQ/L (98-107); CREATININE FOR GFR 0.92 MG/DL (0.55-1.30); GLOMERULAR FILTRATION RATE > 60.0 (>51); GLUCOSE, FASTING 102 MG/DL (70-100); SODIUM LEVEL 142 MEQ/L (136-145)
[2019-03-12] MEDS ORDERED: ZOFR4TAB16 PO (16:13)
[2019-03-12 16:39] VITALS: BP 160/78
--- NOTE | 2019-03-13 07:50 | REP ---
REASON: Abdominal pain. COMPARISON: 12/06/2012 which showed moderate left sided hydronephrosis and hydroureter secondary to a 5 mm sized calculus in the left ureter at the level of L3. Other nonobstructing calculi are also noted. The lung bases are clear and unchanged. Limited evaluation of the solid intra-abdominal organs show no gross abnormalities or significant changes from the prior exam. The patient is status post cholecystectomy. Limited evaluation of the pancreas, adrenal glands, and kidneys show no gross abnormalities. There is no nephroureterolithiasis, hydronephrosis, or hydroureter. There are no urinary bladder calcifications. Multiple radiodensities are seen in the pelvis consistent with previous postoperative changes and pelvic phleboliths. Limited evaluation of the abdominal aorta and paraaortic regions show no gross abnormalities or sign changes from the prior exam. There is no free fluid or free air in the abdomen or pelvis. Limited evaluation of the intra-abdominal and intrapelvic bowel loops and their mesenteries show postoperative changes status quo. There are no acute abnormalities noted. There is no evidence of an intra-abdominal or intrapelvic mass or adenopathy. Bone window technique throughout the exam shows chronic spinal degenerative changes status quo. IMPRESSION: No evidence of acute intra-abdominal or intrapelvic disease on this limited noncontrast enhanced exam. Findings as described above. Electronically Signed by Levy Leung DO 03/13/2019 09:35 A
== END 2019-03-12 16:42 | disposition home or self-care (01) ==
LOC: M ED 13:26
DX: K52.9 Noninfective gastroenteritis and colitis, unspecified (principal); I10 Essential (primary) hypertension; E78.5 Hyperlipidemia, unspecified; Z79.899 Other long term (current) drug therapy; Z88.5 Allergy status to narcotic agent; Z88.8 Allergy status to other drugs, medicaments and biological substances; F17.210 Nicotine dependence, cigarettes, uncomplicated
CPT/HCPCS: 36415; 74176; 80048; 80076; 81001; 83690; 85025; 93041; 96361; 96374; 96375; 99284; C9113; J1885; J2405

== ENCOUNTER 2019-05-22 08:11 | Day surgery (SDC) | payer MEDICARE ==
[~2019-05-22] VITALS: Ht 165.1 cm; Wt 69.4 kg
[~2019-05-22 08:11] MED LIST changes: +NS 1,000 ML IV ONE; +SERO200T PO; +TRAZ-189 PO; +ZOFR4TAB16 PO; +ZOLP10TA2 PO
[2019-05-22] MEDS ORDERED: PROPOFOL 500 MG/50 ML VIAL As Ordered ONE (09:50)
[2019-05-22] MEDS ORDERED: fentaNYL 100 MCG/2 ML INJECTION (J3010) As Ordered ONE (09:50)
[2019-05-22] MEDS ORDERED: LIDOCAINE 2% INJ 100 MG/5 ML SDV (FOR ANES.) As Ordered ONE (09:50)
--- NOTE | 2019-05-22 09:59 | ROOR ---
Patient Name: Juanis Arriaga Procedure Date: 05/22/2019 9:40 AM Date of : 1960 Age: 58 Room: [facility] Gender: Female Note Status: Finalized Procedure: Upper Endoscopy + Biopsies Indications: Diarrhea, Weight loss Providers: Ja Diggs MD Referring MD: Thanh Tam DO Requesting Provider: Medicines: Monitored Anesthesia Care Complications: No immediate complications. Procedure: Pre-Anesthesia Assessment: - The heart rate, respiratory rate, oxygen saturations, blood pressure, adequacy of pulmonary ventilation, and response to care were monitored throughout the procedure. The Endoscope was introduced through the mouth, and advanced to the second part of duodenum. The upper GI endoscopy was accomplished without difficulty. The patient tolerated the procedure well. Findings: The Z-line was variable and was found 40 cm from the incisors. Multiple biopsies were obtained with cold forceps for evaluation to rule out Medina's Esophagus randomly at the gastroesophageal junction. A small hiatal hernia was present. No other significant abnormalities were identified in a careful examination of the stomach. Biopsies were taken with a cold forceps in the gastric antrum for Helicobacter pylori testing. The exam of the duodenum was otherwise normal. Biopsies for histology were taken with a cold forceps in the first portion of the duodenum for evaluation of celiac disease. For hemostasis, one hemostatic clip was successfully placed (MR conditional). There was no bleeding at the end of the procedure. The exam was otherwise without abnormality. Impression: - Z-line variable, 40 cm from the incisors. - Small hiatal hernia. - The examination was otherwise normal. - Multiple biopsies were obtained at the gastroesophageal junction. - Biopsies were taken with a cold forceps for Helicobacter pylori testing. - Biopsies were taken with a cold forceps for evaluation of celiac disease. - One hemostatic clip was successfully placed (MR conditional). - The examination was otherwise normal. Recommendation: - Patient has a contact number available for emergencies. The signs and symptoms of potential delayed complications were discussed with the patient. Return to normal activities tomorrow. Written discharge instructions were provided to the patient. - Discharge patient to home. - Continue present medications. - Await pathology results. - Telephone GI clinic for pathology results in 1 week. - Return to referring physician. - The findings and recommendations were discussed with the patient's family. Ja Diggs MD Ja Diggs MD 05/22/2019 9:59:01 AM Electronically signed by Ja Diggs MD Number of Addenda: 0 Note Initiated On: 05/22/2019 9:40 AM Estimated Blood Loss: Estimated blood loss: none.
--- NOTE | 2019-05-22 10:14 | ROOR ---
Patient Name: Juanis Arriaga Procedure Date: 05/22/2019 9:41 AM Date of : 1960 Age: 58 Room: [facility] Gender: Female Note Status: Finalized Procedure: Total Colonoscopy to Cecum + Bx. To r/o Microscopic Colitis Indications: Clinically significant diarrhea of unexplained origin, Weight loss Providers: Ja Diggs MD Referring MD: Thanh Tam DO Requesting Provider: Medicines: Monitored Anesthesia Care Complications: No immediate complications. Procedure: Pre-Anesthesia Assessment: - The heart rate, respiratory rate, oxygen saturations, blood pressure, adequacy of pulmonary ventilation, and response to care were monitored throughout the procedure. The Colonoscope was introduced through the anus and advanced to the cecum, identified by appendiceal orifice and ileocecal valve. The colonoscopy was performed without difficulty. The patient tolerated the procedure well. The quality of the bowel preparation was fair. Findings: The perianal and digital rectal examinations were normal. Non-bleeding internal hemorrhoids were found during retroflexion. The hemorrhoids were Grade I (internal hemorrhoids that do not prolapse). Semi-liquid stool was found in the entire colon, precluding visualization. The exam was otherwise without abnormality on direct and retroflexion views. Biopsies for histology were taken with a cold forceps from the cecum, ascending colon, transverse colon and descending colon for evaluation of microscopic colitis. The exam was otherwise without abnormality. Impression: - Preparation of the colon was fair. - Non-bleeding internal hemorrhoids. - Stool in the entire examined colon. - The examination was otherwise normal on direct and retroflexion views. - The examination was otherwise normal. - Biopsies were taken with a cold forceps from the cecum, ascending colon, transverse colon and descending colon for evaluation of microscopic colitis. - The exam was otherwise normal to the cecum. Recommendation: - Patient has a contact number available for emergencies. The signs and symptoms of potential delayed complications were discussed with the patient. Return to normal activities tomorrow. Written discharge instructions were provided to the patient. - High fiber diet. - Discharge patient to home. - Continue present medications. - Await pathology results. - Telephone GI clinic for pathology results in 1 week. - Repeat colonoscopy in 10 years for screening purposes. - The findings and recommendations were discussed with the patient's family. Ja Diggs MD Ja Diggs MD 05/22/2019 10:13:47 AM Electronically signed by Ja Diggs MD Number of Addenda: 0 Note Initiated On: 05/22/2019 9:41 AM Estimated Blood Loss: Estimated blood loss: none.
[2019-05-22 10:45] VITALS: BP 129/70
== END 2019-05-22 10:53 | disposition home or self-care (01) ==
LOC: M OPP 08:11
PROVIDERS: ATTEND Internal Medicine Gastroenterology
DX: K64.0 First degree hemorrhoids (principal); K22.8 Other specified diseases of esophagus; K44.9 Diaphragmatic hernia without obstruction or gangrene; R63.4 Abnormal weight loss; R19.7 Diarrhea, unspecified; F17.210 Nicotine dependence, cigarettes, uncomplicated; Z79.899 Other long term (current) drug therapy; Z88.8 Allergy status to other drugs, medicaments and biological substances
CPT/HCPCS: 43239; 45380; 88305; J3010

== ENCOUNTER 2019-07-10 11:38 | Emergency (ER) | payer MEDICARE ==
[~2019-07-10] VITALS: Ht 165.1 cm; Wt 72.4 kg
[~2019-07-10 11:38] MED LIST changes: +CLON0.5T2 PO; -CLON0.5T8 PO; -NS 1,000 ML IV ONE
[2019-07-10] MEDS ORDERED: ASPIRIN 325 MG TAB PO ONE (13:00)
[2019-07-10 13:06] LABS: BASO # 0.1 10^3/uL (0.0-0.2); BASO % 1.4 % (0.0-1.0); EOS # 0.2 10^3/uL (0.0-0.5); EOS % 2.6 % (0.0-3.0); HEMATOCRIT 39.6 % (36.0-47.0); HEMOGLOBIN 13.2 g/dl (12.0-15.5); LYMPH # 1.1 10^3/uL (1.5-5.0); LYMPH % 18.4 % (24.0-44.0); MEAN CORPUSCULAR HEMOGLOBIN 32.1 pg (27.0-33.0); MEAN CORPUSCULAR HGB CONC 33.3 g/dl (32.0-36.5); MEAN CORPUSCULAR VOLUME 96.4 fl (80.0-96.0); MONO # 0.4 10^3/uL (0.0-0.8); MONO % 6.7 % (0.0-5.0); NEUTROPHILS # 4.1 10^3/uL (1.5-8.5); NEUTROPHILS % 70.4 % (36.0-66.0); PLATELET COUNT, AUTOMATED 263 10^3/uL (150-450); RED BLOOD COUNT 4.11 10^6/uL (4.00-5.40); WHITE BLOOD COUNT 5.8 10^3/uL (4.0-10.0)
--- NOTE | 2019-07-10 13:25 | REP ---
Two-view chest: 07/10/2019. Indication: Chest pain. Comparison: 08/15/2016. Findings: The lungs are clear. There is no pleural effusion or pneumothorax. Cardiomediastinal silhouette is unremarkable. Impression: No acute cardiopulmonary process. Electronically Signed by Panchito Cox DO 07/10/2019 01:16 P
[2019-07-10 13:59] LABS: BLOOD UREA NITROGEN 16 MG/DL (7-18); CALCIUM LEVEL 9.6 MG/DL (8.5-10.1); CARBON DIOXIDE LEVEL 29 MEQ/L (21-32); CHLORIDE LEVEL 104 MEQ/L (98-107); CPK CREATINE PHOSPHOKINASE 66 U/L (26-192); CREATININE FOR GFR 0.94 MG/DL (0.55-1.30); GLOMERULAR FILTRATION RATE > 60.0 (>51); GLUCOSE, FASTING 100 MG/DL (70-100); POTASSIUM SERUM 4.5 MEQ/L (3.5-5.1); SODIUM LEVEL 139 MEQ/L (136-145)
[2019-07-10 14:00] LABS: CK-MB VALUE MASS < 1.0 NG/ML (<3.6); MB/CK RELATIVE INDEX 1.51 (< OR =4); TROPONIN I < 0.02 NG/ML (< 0.10)
[2019-07-10 14:30] VITALS: BP 173/92
--- NOTE | 2019-07-11 17:49 | ECGEPIP ---
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
== END 2019-07-10 14:44 | disposition home or self-care (01) ==
LOC: M ED 11:38
DX: R07.89 Other chest pain (principal); Z86.73 Personal history of transient ischemic attack (TIA), and cerebral infarction without residual deficits; I48.91 Unspecified atrial fibrillation; E78.00 Pure hypercholesterolemia, unspecified; I10 Essential (primary) hypertension; K58.0 Irritable bowel syndrome with diarrhea; Z86.39 Personal history of other endocrine, nutritional and metabolic disease; F41.9 Anxiety disorder, unspecified; F32.9 Major depressive disorder, single episode, unspecified; Z79.899 Other long term (current) drug therapy; Z88.5 Allergy status to narcotic agent

== ENCOUNTER → 2019-08-12 | Outpatient (REF) | payer MEDICARE ==
[~2019-08-12] MED LIST changes: -TRAZ-163 PO; +TRAZ-257 PO
== END ==
LOC: M LAB REF 15:02
PROVIDERS: ATTEND Internal Medicine Gastroenterology
DX: K52.9 Noninfective gastroenteritis and colitis, unspecified (principal)

== ENCOUNTER 2020-03-02 12:09 | Emergency (ER) | payer MEDICARE ==
[~2020-03-02 12:09] MED LIST changes: +IBUPROFEN 600MG TAB As Ordered ONE; +IBUPROFEN 600MG TAB ONE; +QUET100T2 PO; -QUET1TAB8 PO
== END 2020-03-02 13:50 | disposition home or self-care (01) ==
LOC: M ED 12:09
DX: S86.911A Strain of unspecified muscle(s) and tendon(s) at lower leg level, right leg, initial encounter (principal); S76.312A Strain of muscle, fascia and tendon of the posterior muscle group at thigh level, left thigh, initial encounter; X58.XXXA Exposure to other specified factors, initial encounter; Y92.9 Unspecified place or not applicable; Y93.9 Activity, unspecified; Y99.9 Unspecified external cause status; Z88.8 Allergy status to other drugs, medicaments and biological substances

== ENCOUNTER → 2021-01-01 | Outpatient (CLI) | payer MEDICARE ==
[~2021-01-01] MED LIST changes: +DICY10CA13 PO; +GABA-282 PO; -GABA-843 PO; -IBUPROFEN 600MG TAB As Ordered ONE; -IBUPROFEN 600MG TAB ONE; +LOPE1CAP5 PO; +MONT10TA10 PO; +OMEP-221 PO; +ZALE10CA PO; +ZOLO100T PO
== END ==
LOC: M LABSMTC 11:43
PROVIDERS: ATTEND Anesthesiology
DX: Z01.812 Encounter for preprocedural laboratory examination (principal); Z20.822 Contact with and (suspected) exposure to COVID-19

== ENCOUNTER → 2021-01-07 | Outpatient (CLI) | payer MEDICARE ==
--- NOTE | 2021-01-07 12:50 | REPVR ---
PROCEDURE INFORMATION: Exam: MR Cervical Spine Without Contrast Exam date and time: 01/07/2021 11:15 AM Age: 60 years old Clinical indication: Patient HX: Chronic neck pain and stiffness, nki, PT states PT no longer helping, HX bone spurs, clearance for SX; Additional info: Cervicalgia ? hnp stenosis TECHNIQUE: Imaging protocol: Multiplanar magnetic resonance images of the cervical spine without contrast. COMPARISON: No relevant prior studies available. FINDINGS: Vertebrae: Vertebral body heights are maintained. Craniocervical junction appears unremarkable. Normal position of cerebellar tonsils without evidence of Chiari I malformation. There are endplate degenerative marrow changes at C5-C6. Vertebral body marrow signal is otherwise unremarkable. Spinal cord: Cervical spinal cord signal is normal without intrinsic cord lesions. C2-C3: There is mild disc bulge. There is no significant cord compression. There is no neural foraminal or spinal stenosis. C3-C4: There is minimal posterior osteophyte disc complex. There is no significant cord compression or spinal stenosis. There are uncinate and facet osteophytes with mild bilateral neural foraminal narrowing. C4-C5: There is minimal posterior osteophyte disc complex. There is no significant cord compression or spinal stenosis. There are uncinate and facet osteophytes with mild bilateral neural foraminal narrowing. C5-C6: There is grade 1 retrolisthesis of C5 on C6. There is moderate disc height loss. There is posterior osteophyte disc complex. This partially effaces ventral and dorsal subarachnoid space. There is no significant cord compression and moderate spinal stenosis. There are uncinate and facet osteophytes with severe bilateral neural foraminal narrowing. C6-C7: There is minimal posterior osteophyte disc complex. There is no significant cord compression or spinal stenosis. There are uncinate and facet osteophytes with mild bilateral neural foraminal narrowing. C7-T1: There is no significant disc bulge. There is no significant cord compression. There is no neural foraminal or spinal stenosis. Soft tissues: Unremarkable. Vertebral arteries: Expected flow voids in the vertebral arteries. IMPRESSION: Degenerative changes greatest at C5-C6 with moderate spinal stenosis and severe bilateral neural foraminal narrowing. Electronically signed by: Brigette Mckay On 01/07/2021 12:50:23 PM
== END ==
LOC: M PLARAD 10:47
PROVIDERS: ATTEND Physician Assistant
DX: M50.322 Other cervical disc degeneration at C5-C6 level (principal)

== ENCOUNTER 2021-01-25 13:23 | Emergency (ER) | payer MEDICARE ==
[~2021-01-25] VITALS: Ht 165.1 cm; Wt 62.4 kg
[2021-01-25] MEDS ORDERED: TOPI50TA9 PO (13:57)
[2021-01-25] MEDS ORDERED: LEVOTAB10 PO (13:57)
[2021-01-25] MEDS ORDERED: ZOLP10TA2 PO (13:57)
[2021-01-25] MEDS ORDERED: LISI10TA22 PO (13:57)
--- NOTE | 2021-01-25 16:10 | REP ---
INDICATION: posterior head injury COMPARISON: None. TECHNIQUE: Axial noncontrast images from the skull base to the thoracic inlet with coronal reformations. This CT examination was performed using the following dose reduction techniques: Automated exposure control, adjustment of mA and/or kv according to the patient's size, and use of iterative reconstruction technique. FINDINGS: Atrophy with periventricular leukomalacia and microvascular ischemic changes are appreciated. The ventricles and sulci are symmetric. Estrada-white differentiation is maintained. There is no evidence for acute intracranial hemorrhage, mass/mass effect, pathology or infarction. No extra-axial fluid collection. Calvarium is intact. Paranasal sinuses and mastoid air cells are clear. IMPRESSION: Atrophy and microvascular ischemic changes. No acute intracranial hemorrhage, infarction, or mass/mass effect. <Electronically signed by Savage Liu > 01/25/21 [id number]
[2021-01-25] MEDS ORDERED: ACETAMINOPHEN TAB 650MG DOSE (2X325MG) PO ONE (16:55)
[2021-01-25] MEDS ORDERED: IBUPROFEN 600MG TAB PO ONE (16:55)
[2021-01-25 16:58] LABS: HEMATOCRIT 39.3 % (36.0-47.0); HEMOGLOBIN 13.2 g/dl (12.0-15.5); MEAN CORPUSCULAR HEMOGLOBIN 30.8 pg (27.0-33.0); MEAN CORPUSCULAR HGB CONC 33.6 g/dl (32.0-36.5); MEAN CORPUSCULAR VOLUME 91.6 fl (80.0-96.0); PLATELET COUNT, AUTOMATED 278 10^3/uL (150-450); RED BLOOD COUNT 4.29 10^6/uL (4.00-5.40); WHITE BLOOD COUNT 6.9 10^3/uL (4.0-10.0)
[2021-01-25 18:00] VITALS: BP 174/83
--- NOTE | 2021-01-25 22:44 | ECGEPIP ---
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 Order Number: [id number] Reading MD: Arnel Dasilva Measurements Intervals [place] Rate: 59 P: 39 [place]: 136 QRS: 29 QRSD: 84 T: 42 QT: 422 QTc: 417 Interpretive Statements Sinus bradycardia Baseline artifact Similar to tracing done 07-10-19 Electronically Signed on 01-25-2021 22:44:23 EDT by Arnel Dasilva
== END 2021-01-25 18:12 | disposition home or self-care (01) ==
LOC: M ED 13:23
DX: R00.1 Bradycardia, unspecified (principal); S09.90XA Unspecified injury of head, initial encounter; X58.XXXA Exposure to other specified factors, initial encounter; Y92.9 Unspecified place or not applicable; Y93.9 Activity, unspecified; Y99.9 Unspecified external cause status; F17.200 Nicotine dependence, unspecified, uncomplicated; Z79.899 Other long term (current) drug therapy; Z88.5 Allergy status to narcotic agent

== ENCOUNTER 2021-06-03 07:20 | Emergency (ER) | payer MEDICARE ==
[~2021-06-03] VITALS: Ht 165.1 cm; Wt 70.3 kg
[~2021-06-03 07:20] MED LIST changes: +LEVOTAB10 PO; +LISI10TA22 PO; +TOPI50TA9 PO
--- OUTSIDE RECORDS SUMMARY | 2021-06-03 07:28 | CCD | Clinical Summary ---
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 Role Phone Thanh Tam DO PP [phone] Thanh Tam DO Unavailable [phone] Jennifer Wagner Unavailable [phone] [facility], Imaging Unavailable [phone] [facility], [facility] Unavailable [phone] [facility] Unavailable [phone] [facility] Urology, Clinic Unavailable [phone] Ramy PALACIOS, David Unavailable [phone] Ja Diggs MD Unavailable [phone] Reason for Referral Date Encounter Description Provider Reason for Referral 05/27/21 Thanh Tam DO Request Consultation By Specialist Reason for Visit and Chief Complaint visit for:, visit for: Telehealth Encounter for Acute Care. Telehealth is being utilized due to the COVID19 pandemic - The Chief Complaint is: Patient is sche duled for an acute visit on back pain via telehealth,visualized via Upd[employer] due to COVID-19 pandemic. Patient unable to obtain home vital signs. Patient screened for 5 minutes. 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 Past Visits Onset Date - Time Resolved Date - Time Provider Co ndition Status Medina's Esophagus 05/30/2019 - 12:00AM Aubrie Lerma RN Active Hypertension (Systemic) 07/09/2018 - 12:00AM Thanh Tam DO Active Vasovagal Syncope 01/01/2018 - 12:00AM Thanh gamboa DO Active Benign neoplasm of colon, unspecified 08/14/2017 - 12:00AM [place] Nurse Active Note: See Pathology report d ated 08/14/17 Chest Pain 12/03/2014 - 12:00AM Nicolasa CASTELLANOS A ctive Note: Unchanged - referred t o ER Nicotine-related Disorders 08/28/2014 - 12:00AM Jame Tam DO Active Urine Drug Screen 05/21/2013 - 12:00AM Thanh gamboa DO Active Note: MMA- 01/28/2013UDS - 0 01/28/2013- Inconsistent Nephrolithiasis 10/15/2012 - 12:00AM Thanh wilson DO Active Note: Per ER report dated Previous Suicide Attempt 07/12/2012 - 12:00AM Thanh Tam DO Active Note: 02-24-2012- See hospita l report- patient overdosed on Ambien. Migraine Headache 07/09/2010 - 12:00AM Thanh gamboa DO Active Note: Improved - topamax hel ping Vitamin D Deficiency 08/18/2008 - 12:00AM Thanh miller DO Active Note: Well-Controlled - WNL 01/2011 Arthritis 05/13/2008 - 12:00AM Thanh Tam DO Active Note: MOTHER AND BROTHER WIT H RA- TESTED NEGATIVE IN PAST.TYLENOL AND OCC NSAIDS- YOGA ETC . DISCUSSED. Secondary Insomnia 05/13/2008 - 12:00AM Thanh wilde DO Active Note: Improved Family History of Malignant Neoplasm of Gastrointestin al Tra 02/20/2008 - 12:00AM Active Note: COLON MOM, RCC MOM, MOM UTERINE, MAT AUNT BREAST. Bulging Intervertebral Disc 10/27/2007 - 12:00AM Elieser Tam DO Active Note: s/p Lumbar laminectomy and L4-L5 decrompression 04/06/2010-[facility] see 10/28/[address] LUMBAR SPINE 10/11/2007- MILD DISK BULGES L2-S1. NO CENTRAL OR NEUROFORMINAL STENOSIS.SEN CY ORTHO AND REPORTS NERVE CHANGES ON EMG- WILL RX NEURONTIN AND ADVISE EVAL WITHIN NEXT 2 WEEKS OR CALL DOC THAT DID NCS. DR PAYAN 07/27/09 MRI 10/03/2009. Allergic Rhinitis 09/02/2007 - 12:00AM Thanh gamboa DO Active Note: FLONASE AND LALA. HELPS PREVENT VERTIGO. Depression 09/02/2007 - 12:00AM Thanh Tam DO Active Note: Improved - PATIENT ADM ITTED TO [facility] FOR OD 02/20/2012, Hyperlipidemia 09/02/2007 - 12:00AM Thanh gardner DO Active Note: Well-Controlled - REST ARTED STATIN 08/08. . FAM HX CAD. CARDIAC CATH WNL ON 06/02/2005. normal stress nuc 09/27/10 Generalized Anxiety Disorder 02/26/2007 - 12:00AM Ish Tam DO Active Note: Improved Esophagitis Chronic Reflux 02/26/2007 - 12:00AM Jame Tam DO Active Note: Unchanged Constipation 08/04/2000 - 12:00AM Thanh Tam DO Active Note: constipation and cloni c dysmotility see 08/04/[address] AMARAL Plan of Treatment Pending Tests Order Diagnosis Results Due Ordering Provi wilfred Lab COVID 19 RHEONIX 06/26/21 Thanh howard DO Lab CBC w/ Auto Diff 08/03/21 Thanh howard DO Lab COMPREHENSIVE METABOLIC PANEL 08/03/21 Thanh Tam DO Lab LIPID PANEL 08/03/21 Thanh gamboa DO Lab MICROALBUMIN RANDOM 08/03/21 Thanh Tam DO Lab TSH 08/03/21 Thanh gamboa DO Care Programs [facility] Psychiatry Future Appointments Date Time Location Provider Psych 6 wk Follow up 06/01/2021 11:00AM [facility] Maximo Mireles PMHNP [facility] 08/10/2021 3:10PM [facility] Thanh miller DO Future Tests Order Diagnosis Results Due Ordering Provid er Visit Summary - *Standard Visit wLab Visit Summary with Labs Medina's esophagus without dysplasia 04/19/21 Thanh Tam DO Records Orthopedics Other intervertebral disc displa cement, lumbar region 05/27/21 Thanh Tam DO Orders - Other - PT Eval and Treat PT Eval and Treat Other intervertebral disc displacement, lumbar region 05/27/21 Thanh Tam DO - Instructions for patient - Return to the clinic if condition wors ens or new symptoms arise - Follow-up visit Assessments Includes: Assessments from this encounter - Bulging lumbar disc See updated problem list for history/discussion/assessment and plan for today's problems. See also health tab and appropriate flow sheets. Instructions Includes: Instructions from this encounter Instructions to patient Instructions for patient Education and Decision Aids were provide d during visit for: Patient appeared to understand therapeut ic regimen Medical Equipment - Implanted Devices Includes: Current DevicesNo Medical Equipment Recorded Medications Includes: Medications discussed during this encounter and other current Medicati ons New / Renewed during this visit Thanh Tam DO on 05/27/2021 predniSONE 10 MG Oral Tablet Provider: Thanh Tam DO 9 day supply: 18 tablet, 0 refills Diagnosis: Othe r intervertebral disc displacement, lumbar region as directed 3 for 3 days then 2 for 3 days then 1 for 3 days Pharmacy: [facility] [id number] [address] [facility], [phone] - Current Medications (continue as prescribed) Loperamide HCl 2 MG Oral Capsule 04/20/2021 - 04/15/2022 Pro vider: Diagnosis: QID prn per GI Levocetirizine Dihydrochloride 5 MG Oral Tablet 04/19/2021 Provider: Thanh Tam DO Diagnosis: Allergic rhinitis, u nspecified once a day as needed for allergy Metoprolol Succinate ER 100 MG Oral Tablet Extended Release 24 Hour 04/19/2021 Provider: Thanh Tam DO Diagnosis: Essential (primary) hypertension TAKE 1 TABLET BY MOUTH EVERY DAY. Lisinopril 10 MG Oral Tablet 04/19/2021 Provider: Thanh Tam DO Diagnosis: Essential (primary) hypertension once a day- Omeprazole 40 MG Oral Capsule Delayed Release 04/19/2021 Provider: Thanh Tam DO Diagnosis: Medina's esophagus without dysplasia twice a day Divalproex Sodium 500 MG Oral Tablet Delayed Release 021 Provider: Jennifer Mireles [facility] Diagnosis: Bipolar disorder, un specified take one tablet twice a day Venlafaxine HCl ER 150 MG Oral Capsule Extended Release 24 H our 02/04/2021 Provider: Thanh Tam DO Diagnosis: Major depressive dis order, single episode, unspecified once a day fill after titration up on the 37.5 tabs Venlafaxine HCl ER 37.5 MG Oral Capsule Extended Release 24 Hour 02/04/2021 Provider: Thanh Tam DO Diagnosis: Major depressive dis order, single episode, unspecified one daily for 14 days then 2 daily after then fill RX for 15 0 mg Topamax 50 MG Oral Tablet 01/15/2021 Provider: Thanh Tam DO Diagnosis: Migraine w/o aura, n ot intractable, with status migrainosus twice a day PRN traZODone HCl 100 MG Oral Tablet 01/15/2021 Provide r: Thanh Tam DO Diagnosis: Insomnia, unspecifie d 1.5 tabs daily Zolpidem Tartrate 10 MG Oral Tablet 01/15/2021 Prov ider: Thanh Tam DO Diagnosis: Insomnia, unspecifie d 1 at bedtime PRN MDD 1 Montelukast Sodium 10 MG Oral Tablet 01/13/2021 Pro vider: 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 Diagnosis: Allergic rhinitis, u nspecified Take one tablet PO at bedtime Atorvastatin Calcium 20 MG Oral Tablet 12/31/2020 P rovider: Thanh Tam DO Diagnosis: Mixed hyperlipidemia TAKE 1 TABLET BY MOUTH ONCE A DAY EQL Fluticasone Propionate 50 MCG/ACT Nasal Suspension 10/02 Provider: Thanh Tam DO Diagnosis: Allergic rhinitis, u nspecified as directed 2 sprays /nostril / day- Ondansetron 8 MG Oral Tablet Disintegrating 04/28/2020 Provider: Thanh Tam DO Diagnosis: Right upper quadrant pain as directed once ODT PRN TID Medications Administered Includes: Administered Medications from this encounterNo Administered Medications Recorded Vital Signs Includes: Vital Signs from this encounterNo Vital Signs Recorded For Specified Dates Results Includes: Results discussed during this encounterNo Results Recorded For Specified Dates History of Present Illness Includes: History of Present Illness from this encounter Juanis Arriaga is a 60 year old female. - Allergy list reviewed - Medication reconciliation performed - Medication list reviewed with patient and updated in EMR - - No request for consultation by special ist no previous emergency room visit Social History Description Last Updated Smoking status 05/27/2021 : Current everyday smoker 1/ 4ppd 05/27/2021 Secondhand cigarette smoke exposure 04/23/2020 Procedures and Surgical History Includes: Procedures from this encounter Procedures Code Diagnosis Performing Provider Service Location Service Date continue current medication except where otherwise no rocío Transition in care medication list update medical regimen review Clinical summary provided to patient Clinical summary provided to patient Summary provided electronically in CCDA format & reasonable certainty of receipt Surgical History Last Updated History of total abdominal hysterectomy 04/23/2020 History of tubal ligation ear drum surg keren ~JOHN BSO benign path ~S/P CTR R 08/05. L 10/03. ~- left colon and sigmoid colectomy 12/09/2008- benign path ~s/p Lumbar laminectomy and L4-L5 decrompression 04/06/2010 04/23/2020 Medical History Includes: Medical History addressed during this encounter Description Last Updated Past medical/surgical history [use for free text] 04/01 Family History Includes: Family History addressed during this encounter Description Last Updated Family history [use for free text] 04/23/2020 Family history unchanged FAMILY HX OF D M, CAD, RENAL CELL CARCINOMA, THYROID DS, COLON CA, AND GLAUCOMA 04/23/2020 No family history of acute myocardial infarction prio r to age 50 04/23/2020 No family history of early deaths 04/23/2020 No family history of heart disease 04/23/2020 Review of Systems Includes: Review of Systems from this encounterNo Review of Systems Recorded Mental Status Includes: Mental Status from this encounterNo Mental Status Recorded Functional Status Includes: Functional Status from this encounterNo Functional Status Recorded Physical Exam Includes: Physical Exam from this encounter Skin: -the skin color and pigmentation were normal -the skin general appearance was normal Ears, Nose, Throat: -no external nose deformities -no nasal discharge seen Head: -no evidence of a head injury -the head was normocephalic General Status: -in no acute distress -well developed Musculoskeletal System: -overall findings were normal unless noted otherwise Vital Signs: -current vital signs reviewed Physical Findings Free Text: - neurologic exam grossly intact Immunizations Includes: Immunizations addressed during this encounterNo Immunizations Recorded Allergies Includes: Active Allergies Substance Type Reaction Onset Date - Time Resolved Date - Ti me Status Zostavax Allergy local 12/03/2014 - 12:00AM Acti ve Note: Chest pain Ultracet Allergy "blackouts" 02/12/2009 - 12:00AM Act michael Ambien Allergy SUCIDE ATTEMPT 02/2012-- NO CONTR OLLED SUBSTANCES-- 03/06/2012 - 12:00AM Resolved Ambien Allergy suicide attempt with overdose second time 08/14 - 12:00AM Active Encounters Encounter Provider Location Date Check-In Time Check-Out Time D iagnosis Acute Telehealth Upd[employer] Thanh Tam [facility] 021 3:10PM 11:59PM Bulging Intervertebral Disc Lumbar Insurance Includes: Active Insurance Policies Plan Name Member ID Group # Subscriber Relationship Effective Da nagi 1 - [employer] Medicare [id number] Juanis A Corina Self 01/28 - Unknown Advance Directives Includes: Current Advance Directives Directive Pat Aware Third Republican Effective Date Reviewed Status Ebola Screening Performed Yes 01/23/2020 Current and Verified Note: Within the last month, have you traveled outside of the [place]? - NO RHIO Yes 04/20/2021 Current and Ve rified packet given Pt Bill of Rights, Priv Prac, Ad Dir Yes 04/20/2021 Current and Verified Note: Pt declined AD packet Health Concerns Includes: Health Concerns for current assessmentsNo Active Health Concerns Recorded Goals Includes: Active Goals for current assessmentsNo Active Goals Recorded Interventions Includes: Interventions for current assessmentsNo Interventions Recorded Evaluations & Outcomes Includes: Evaluations & Outcomes for current assessmentsNo Outcomes Recorded
--- OUTSIDE RECORDS SUMMARY | 2021-06-03 07:28 | CCD | Clinical Summary ---
Author Author girnarsoft Organization [facility] Address [address] [place] [address] Phone Care Team Providers Care Hyperion Administrator Name Role Phone Thanh Tam DO PP [phone] Thanh Tam DO Unavailable [phone] Jennifer Wagner Unavailable [phone] Magnetic, Imaging Unavailable [phone] [facility] Radiology, Imaging Unavailable [phone] [facility] Unavailable [phone] [facility] Urology, Clinic Unavailable [phone] Ramy PALACIOS, David Unavailable [phone] Dontae PALACIOS, Ja Unavailable [phone] Reason for Referral Date Encounter Description Provider Reason for Referral 06/01/21 Thanh Tam DO Request Consultation By Specialist Reason for Visit and Chief Complaint visit for: Telephonic Encounter for Acute Care. Telephonic visit is being utili zed due to the COVID19 pandemic - The Chief Complaint is: Patient is scheduled today for telephonic appointment, to discuss ongoing pain. [email or web address] Problems Includes: Problems addressed during this encounter [...] neoplasm of colon, unspecified 08/14/2017 - 12:00AM [place] Nurse Active Note: See Pathology report d [...] Note: Improved - PATIENT ADM ITTED TO [facility] FOR OD 02/20/2012, Hyperlipidemia 09/02/2007 [...] Diagnosis Results Due Ordering Provi wilfred Lab CBC w/ Auto Diff 08/03/21 Thanh howard DO Lab COMPREHENSIVE METABOLIC PANEL 08/03/21 Thanh Tam DO Lab LIPID PANEL 08/03/21 Thanh gamboa DO Lab MICROALBUMIN RANDOM 08/03/21 Thanh Tam DO Lab TSH 08/03/21 Thanh gamboa DO Care Programs [facility] Psychiatry Future Appointments Date Time Location Provider Psych 6 wk Follow up 07/13/2021 11:45AM [facility] Jeremy Mireles PMHNP [facility] 08/10/2021 3:10PM [facility] Jeremy miller DO Future Tests Order Diagnosis Results Due Ordering Provid er Visit Summary - *Standard Visit wLab Visit Summary with Labs Medina's esophagus without dysplasia 04/19/21 Thanh Tam DO Assessments Includes: Assessments from this encounter - Bulging lumbar disc See updated problem list for history/discussion/assessment and plan for today's problems. See also health tab and appropriate flow sheets. Instructions Includes: Instructions from this encounterNo Instructions Recorded Medical Equipment - Implanted Devices Includes: Current DevicesNo Medical Equipment Recorded Medications Includes: Medications discussed during this encounter and other current Medicati ons Discontinued / Stopped on this date Ish Tam DO on 02/04/2021 Venlafaxine HCl ER 37.5 MG Oral Capsule Extended Release 24 Hour Provider: Thanh Tam DO Diagnosis: Major depressive dis order, single episode, unspecified Ondansetron 8 MG Oral Tablet Disintegrating Provider: Thanh Tam DO Diagnosis: Right upper quadrant pain Current Medications (continue as prescribed) Divalproex Sodium 500 MG Oral Tablet Delayed Release 021 - 07/31/2021 Provider: Jennifer Mireles PMHNP Diagnosis: Bipolar disorder, un specified take one tab every morning and 2 tabs at bedtime predniSONE 10 MG Oral Tablet 05/27/2021 Provider: Thanh Tam DO Diagnosis: Other intervertebral disc displacement, lumbar region as directed 3 for 3 days then 2 for 3 days then 1 for 3 days Loperamide HCl 2 MG Oral Capsule 04/20/2021 [...] Medina's esophagus without dysplasia twice a day Venlafaxine HCl ER 150 MG Oral Capsule Extended Release 24 H our 02/04/2021 Provider: Thanh Tam DO Diagnosis: Major depressive dis order, single episode, unspecified once a day fill after titration up on the 37.5 tabs traZODone HCl 100 MG Oral Tablet 01/15/2021 Provide r: Thanh Tam DO Diagnosis: Insomnia, unspecifie d 1.5 tabs daily Topamax 50 MG Oral Tablet 01/15/2021 Provider: Thanh Tam DO Diagnosis: Migraine w/o aura, n ot intractable, with status migrainosus twice a day PRN Zolpidem Tartrate 10 MG Oral Tablet 01/15/2021 Prov ider: Thanh Tam DO Diagnosis: Insomnia, unspecifie d 1 at bedtime PRN MDD 1 Montelukast Sodium 10 MG Oral Tablet 01/13/2021 Pro vider: Nicolasa Christiansen QUALITY CONTROL Diagnosis: Allergic rhinitis, u nspecified Take one tablet PO at bedtime Atorvastatin Calcium 20 MG Oral Tablet 12/31/2020 P rovider: Thanh Tam DO Diagnosis: Mixed hyperlipidemia TAKE 1 TABLET BY MOUTH ONCE A DAY EQL Fluticasone Propionate 50 MCG/ACT Nasal Suspension 10/02 Provider: Thanh Tam DO Diagnosis: Allergic rhinitis, u nspecified as directed 2 sprays /nostril / day- Medications Administered Includes: Administered Medications from this [...] list reviewed - Medication reconciliation performed - - No request for consultation by special ist no previous emergency room visit Social History Description Last Updated Smoking status 06/01/2021 : Current everyday smoker 1/ 4ppd 06/01/2021 Alcohol use (female) less than 4 drinks per occasion / 7 per week 04/19/2021 Drug use Denies Drug Use 04/19/2021 Secondhand cigarette smoke exposure 04/23/2020 Procedures and Surgical History Includes: Procedures from this encounter Procedures Code Diagnosis Performing Provider Service Location Service Date Transition in care medication list update Summary provided electronically in CCDA format & [...] Physical Exam Includes: Physical Exam from this encounterNo Physical Exam Recorded Immunizations Includes: Immunizations addressed during this encounterNo [...] Date Check-In Time Check-Out Time D iagnosis Telephonic Encounter Thanh Tam [facility] 1 3:40PM 11:59PM Bulging Intervertebral Disc Lumbar Insurance Includes: Active Insurance Policies Plan Name Member ID Group # Subscriber Relationship Effective Da nagi 1 - [employer] Medicare [id number] Juanis Eliazar Corina Self 01/28 - Unknown Advance Directives Includes: Current Advance Directives Directive Pat Aware Third Libertarian Effective Date Reviewed Status Ebola Screening Performed [...]
--- OUTSIDE RECORDS SUMMARY | 2021-06-03 07:28 | CCD | Clinical Summary ---
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 Name Role Phone Thanh Tam DO PP [phone] Thanh Tam DO Unavailable [phone] Magnetic, Imaging Unavailable [phone] [facility] Radiology, Imaging Unavailable [phone] [facility] Unavailable [phone] [facility], [facility] Unavailable [phone] Ramy PALACIOS, David Unavailable [phone] Dontae PALACIOS, Ja Unavailable [phone] Reason for Referral Date Encounter Description Provider Reason for Referral 04/19/21 Thanh Tam DO Request Consultation By Specialist Reason for Visit and Chief Complaint visit for:, visit for: Telehealth Encounter for Chronic Care. Telehealth is gabe ng utilized due to the COVID19 pandemic - The Chief Complaint is: Patient is sc heduled for a chronic disease follow up via telehealth, visualized via Facetime due to COVID-19 pandemic. Patient voiced no questions or cocnerns at this time. Patient reported home vital signs documented. Patient screened for 5 minutes. -Milton Degroot CMA Problems Includes: Problems addressed during this encounter and other active Problems Current Visit Onset Date - Time Resolved Date - Time Provider C ondition Status Medina's Esophagus 05/30/2019 - 12:00AM Aubrie Lerma RN Active Hypertension (Systemic) 07/09/2018 - 12:00AM Thanh Tam DO Active Reported Family History of Heart Disease 05/13/2008 - 12:00AM Thanh Tam DO Active Note: see cardiac testing fr om 2010- CT scan and stress test WNL- consider repeat cardiac eval by 2013- BROTHER AT 50, FATHER CVA 73, SISTER PTCA AT 48 AND CVA 34.SEE CATH ABOVE - NO EXERTIONAL CARIOVASCULAR SX'S 12/06. Hyperlipidemia 09/02/2007 - 12:00AM Thanh gardner DO Active Note: Well-Controlled - REST ARTED STATIN 08/08. . FAM HX CAD. CARDIAC CATH WNL ON 06/02/2005. normal stress nuc 09/27/10 Generalized Anxiety Disorder 02/26/2007 - 12:00AM Ish Tam DO Active Note: Improved Past Visits Onset Date - Time Resolved Date - Time Provider Co ndition Status Vasovagal Syncope 01/01/2018 - 12:00AM Thanh gamboa DO Active Benign neoplasm of colon, unspecified 08/14/2017 - 12:00AM Dougherty Nurse Active Note: See Pathology report d ated 08/14/17 Chest Pain 12/03/2014 - 12:00AM Nicolasa Perea ctive Note: Unchanged - referred t o [...] Vitamin D Deficiency 08/18/2008 - 12:00AM Thanh Walton rguello DO Active Note: Well-Controlled - WNL 01/2011 Arthritis 05/13/2008 - 12:00AM Thanh Tam DO Active Note: MOTHER AND BROTHER SELVIN Britt RA- TESTED NEGATIVE IN PAST.TYLENOL AND OCC [...] Note: Improved - PATIENT ADM ITTED TO [facility] FOR OD 02/20/2012, Esophagitis Chronic Reflux 02/26/2007 - 12:00AM Jame [...] DO Lab TSH 08/03/21 Thanh gamboa DO Future Appointments Date Time Location Provider Psych 4 wk Follow up 04/20/2021 1:00PM [facility] Maximo Mireles PMHNP AHR 08/10/2021 3:10PM [facility] Thanh miller DO Future Tests Order Diagnosis Results Due Ordering Provid er Visit Summary - *Standard Visit wLab Visit Summary with Labs Medina's esophagus without dysplasia 04/19/21 Thanh aTm DO - Instructions for patient - Return to the clinic if condition wors ens or new symptoms arise - Follow-up visit Assessments Includes: Assessments from this encounter - Hypertension - Medina's esophagus - Hyperlipidemia - Generalized anxiety disorder See updated problem list for history/discussion/assessment and [...] on this date Ish Tam DO on 07/09/2018 Ventolin HFA 108 (90 Base)MCG/ACT Inhalation Aerosol Solutio n Provider: Thanh Tam DO Diagnosis: Nicotine dependence, unsp, w unsp nicotine-induced disorders New / Renewed during this visit Thanh Tam DO on 04/19/2021 Levocetirizine Dihydrochloride 5 MG Oral Tablet Provider: Thanh Tam DO 90 day supply: 90 tablet, 1 refills Diagnosis: All ergic rhinitis, unspecified once a day as needed for allergy Pharmacy: [facility] [address] [place] [address], [phone] - Metoprolol Succinate ER 100 MG Oral Tablet Extended Release 24 Hour Provider: Thanh Tam DO 90 day supply: 90 tablet, 1 refills Diagnosis: Ess ential (primary) hypertension TAKE 1 TABLET BY MOUTH EVERY DAY. Pharmacy: [facility] [address] [place] [address], [phone] - Lisinopril 10 MG Oral Tablet Provider: Thanh Tam DO 90 day supply: 90 tablet, 1 refills Diagnosis: Ess ential (primary) hypertension once a day- Pharmacy: [facility] [address], [phone] - Omeprazole 40 MG Oral Capsule Delayed Release Provider: Thanh aTm DO 90 day supply: 180 capsule, 1 refills Diagnosis: B arrett's esophagus without dysplasia twice a day Pharmacy: [facility] [address], [phone] - Current Medications (continue as prescribed) Divalproex Sodium 500 MG Oral Tablet Delayed Release 021 - 05/23/2021 Provider: [facility] Diagnosis: Bipolar disorder, un specified take one tablet twice a day Loperamide HCl 2 MG Oral Capsule 03/24/2021 - 03/19/2022 Pro vider: Diagnosis: QID prn per GI Venlafaxine HCl ER 37.5 MG Oral Capsule Extended Release 24 Hour 02/04/2021 Provider: Thanh Tam DO Diagnosis: Major depressive dis order, single episode, unspecified one daily for 14 days then 2 daily after then fill RX for 15 0 mg Venlafaxine HCl ER 150 MG Oral Capsule Extended Release 24 H our 02/04/2021 Provider: Thanh Tam DO Diagnosis: Major depressive dis order, single episode, unspecified once a day fill after titration up on the 37.5 tabs Zolpidem Tartrate 10 MG Oral Tablet 01/15/2021 Prov ider: Thanh Tam DO Diagnosis: Insomnia, unspecifie d 1 at bedtime PRN MDD 1 QUEtiapine Fumarate 200 MG Oral Tablet 01/15/2021 P rovider: Thanh Tam DO Diagnosis: Insomnia, unspecifie d 1 every bedtime - restarted 12/2020 QUEtiapine Fumarate 50 MG Oral Tablet 01/15/2021 Pr ovider: Thanh Tam DO Diagnosis: Insomnia, unspecifie d 1 every bedtime Topamax 50 MG Oral Tablet 01/15/2021 Provider: Thanh Tam DO Diagnosis: Migraine w/o aura, n ot intractable, with status migrainosus twice a day PRN traZODone HCl 100 MG Oral Tablet 01/15/2021 Provide r: Thanh Tam DO Diagnosis: Insomnia, unspecifie d 1.5 tabs daily Montelukast Sodium 10 MG Oral Tablet 01/13/2021 Pro vider: Nicolasa Christiansen DIRECTOR SURFACE TRANSPORTATION Diagnosis: Allergic rhinitis, u nspecified Take one tablet PO at bedtime Atorvastatin Calcium 20 MG Oral Tablet 12/31/2020 P rovider: Thanh Tam DO Diagnosis: Mixed hyperlipidemia TAKE 1 TABLET BY MOUTH ONCE A DAY EQL Fluticasone Propionate 50 MCG/ACT Nasal Suspension 10/02 Provider: Thanh Tam DO Diagnosis: Allergic rhinitis, u nspecified as directed 2 sprays /nostril / day- Zaleplon 10 MG Oral Capsule 08/28/2020 Provider: Thanh Tam DO Diagnosis: Medina's esophagus without dysplasia once a day at bedtime MDD 1 Ondansetron 8 MG Oral Tablet Disintegrating 04/28/2020 Provider: Thanh Tam DO Diagnosis: Right upper quadrant pain as directed once ODT PRN TID Medications Administered Includes: Administered Medications from this encounterNo Administered Medications Recorded Vital Signs Includes: Vital Signs from this encounter Vital Name 04/19/2021 09:11A Blood Pressure Sitting (mmHg) 118/73 Results Includes: Results discussed during this encounter CBC w/ Auto Diff [facility] Ordered by Thanh Tam DO on 01/15/[address] [place] [address], [address] Collected: 01/15/2021 Reported: 01/15/2021 17:45 tel : BASO # (AUTO) 0.11 10\\^3/uL (0.00-0.20) N (Normal) Note: Responsible Observer: BASO # (AUTO ) BASO # (AUTO) 100.1500 (A) BASO % (AUTO) 1.9 % (0.0-2.0) N (Normal) Note: Responsible Observer: BASO % (AUTO ) BASO % (AUTO) 100.1250 (A) EOS # (AUTO) 0.12 10\\^3/uL (0.00-1.10) N (Normal) Note: Responsible Observer: EOS # (AUTO) EOS # (AUTO) 100.1450 (A) EOS % (AUTO) 2.1 % (0.0-11.0) N (Normal) Note: Responsible Observer: EOS % (AUTO) EOS % (AUTO) 100.1200 (A) GRAN # (AUTO) 3.68 10\\^3/uL (1.50-6.50) N (Normal) Note: Responsible Observer: GRAN # (AUTO ) GRAN #(AUTO) 100.1325 (A) GRAN % (AUTO) 64.2 % (42.0-75.0) N (Normal) Note: Responsible Observer: GRAN % (AUTO ) GRAN % (AUTO) 100.1000 (A) HEMATOCRIT 41.0 % (35.0-46.0) N (Normal) Note: Responsible Observer: HCT HEMATOCR IT 100.0400 (A) HEMOGLOBIN 13.5 G/DL (11.5-15.6) N (Normal) Note: Responsible Observer: HGB HEMOGLOB IN 100.0300 (A) IG # (AUTO) 0.0 10\\^3/uL (<0.5) None Note: Responsible Observer: IG # (AUTO) IG # (AUTO) 100.1260 (A) IG % (AUTO) 0.5 % (1.00-5.00) None Note: Responsible Observer: IG % (AUTO) IG % (AUTO) 100.1255 (A) LYMPH # (AUTO) 1.2 k/uL (1.0-5.0) N (Normal) Note: Responsible Observer: LYMPH # (AUT O) LYMPH # (AUTO) 100.1350 (A) LYMPH % (AUTO) 21.4 % (20.0-51.0) N (Normal) Note: Responsible Observer: LYMPH % (AUT O) LYMPH % (AUTO) 100.1100 (A) MCH 31.1 PG (27.0-34.0) N (Normal) Note: Responsible Observer: MCH MCH 100 .0600 (A) MCHC 32.9 G/DL (32-36) N (Normal) Note: Responsible Observer: MCHC MCHC 1 00.0650 (A) MCV 94.5 FL (80.0-100.0) N (Normal) Note: Responsible Observer: MCV MCV 100 .0550 (A) MONO # (AUTO) 0.57 k/uL (0.20-1.50) N (Normal) Note: Responsible Observer: MONO # (AUTO ) MONO # (AUTO) 100.1400 (A) MONO % (AUTO) 9.9 % (2.0-15.0) N (Normal) Note: Responsible Observer: MONO % (AUTO ) MONO% (AUTO) 100.1150 (A) MPV 9.6 FL (8.7-13.2) N (Normal) Note: Responsible Observer: MPV MPV 100 .0950 (A) PLATELET COUNT 295 10\\^3/uL (130-400) N (Normal) Note: Responsible Observer: PLT PLATELET COUNT 100.0850 (A) RED BLOOD COUNT 4.34 10\\^6/uL (3.90-5.20) N (Normal) Note: Responsible Observer: RBC RED BLOO D COUNT 100.0250 (A) RDW 12.8 % (11.5-14.5) N (Normal) Note: Responsible Observer: RDW RDW 100 .0700 (A) WHITE BLOOD COUNT 5.74 10\\^3/uL (4.00-10.50) N (Normal) Note: Responsible Observer: WBC WHITE BL OOD COUNT 100.0150 (A) Reviewed by Thanh Tam DO on ; All test results are final unless otherwise noted. MICROALBUMIN RANDOM [facility] Ordered by Thanh Tam DO on 01/15/[address] [place] [address], [address] Collected: 01/15/2021 Reported: 01/15/2021 18:06 tel :[phone] CREAT RANDOM URINE 60.5 MG/DL None Note: No Normal Ranges Available for th is Procedure.Responsible Observer: UR CREAT UR CREATININE 200.3655 (A) MICROALBUMIN,URINE < 3.0 MG/L None Note: Responsible Observer: UR MICROALB RND UR MICROALBUMIN RANDOM 200.4000 (A) MICROALBUM/CREATININE RATIO,UR 5.0 UG/MG_CR (0.0-30.0) N (Normal) Note: Responsible Observer: UR MICROALB/ CRE UR MICROALBUMIN/CREAT RATIO 200.4100 (A) Reviewed by Thanh Tam DO on ; All test results are final unless otherwise noted. COMPREHENSIVE METABOLIC PANEL [facility] Ordered by Thanh Tam DO on 01/15/[address], [address] Collected: 01/15/2021 Reported: 01/15/2021 18:06 tel :[phone] ALB/GLOB RATIO 1.6 G/DL (1.0-3.0) N (Normal) Note: Responsible Observer: A/G RATIO AL B/GLOB RATIO 300.4100 (A) ALBUMIN 4.7 G/DL (3.0-5.1) N (Normal) Note: Responsible Observer: ALB ALBUMIN 300.3900 (A) ALKALINE PHOSPHATASE 82 U/L (40-140) N (Normal) Note: Responsible Observer: ALK PHOS ALK ADELA PHOSPHATASE 300.3110 (A) ALT 35 U/L (5-48) N (Normal) Note: Responsible Observer: ALT/SGPT ALT 300.3100 (A) AST 29 U/L (5-40) N (Normal) Note: Responsible Observer: AST/SGOT AST 300.3050 (A) BUN/CREAT RATIO 15 (8-36) N (Normal) Note: Responsible Observer: BUN/CREAT RA VALENTNI BUN/CREAT RATIO 300.0450 (A) BILIRUBIN,TOTAL 0.4 MG/DL (0.1-1.3) N (Normal) Note: Responsible Observer: TOTAL BILI T OTAL BILIRUBIN 300.2700 (A) BLOOD UREA NITRO 14 MG/DL (7-25) N (Normal) Note: Responsible Observer: BUN BLOOD UR EA NITROGEN 300.0350 (A) CA 10.0 MG/DL (8.7-10.5) N (Normal) Note: Responsible Observer: CA CALCIUM 300.2200 (A) CHLORIDE 109 MEQ/L (94-110) N (Normal) Note: Responsible Observer: CL CHLORIDE 300.0200 (A) CARBON DIOXIDE 27 MEQ/L (22-33) N (Normal) Note: Responsible Observer: CO2 CARBON D IOXIDE 300.0250 (A) CREATININE 0.9 MG/DL (0.6-1.4) N (Normal) Note: Responsible Observer: CREAT CREATI NINE 300.0400 (A) ANION GAP 9 (5-16) N (Normal) Note: Responsible Observer: ANION GAP AN ION GAP 300.0300 (A) GFR 63.7 ML/MIN None Note: Stage G2 - Mildly decreased kidne y function The GFR is an estimate of the Glomerular Filtration Rate. It is an aid to assess a patient's renal function. It is not a conclusive diagnosis of kidney disease. GFR normal is >=90 The MDRD GFR calculation is considered valid between the ages of 18 and 75 years only.Responsible Observer: GFR GFR 300.0410 (A) GLOBULIN 2.9 G/DL (1.5-3.5) N (Normal) Note: Responsible Observer: GLOB GLOBULI N 300.4050 (A) GLUCOSE 101 MG/DL (70-100) H (High) Note: Responsible Observer: GLU GLUCOSE 300.0500 (A) POTASSIUM 4.4 MEQ/L (3.5-5.3) N (Normal) Note: Responsible Observer: K POTASSIUM 300.0150 (A) SODIUM 141 MEQ/L (135-145) N (Normal) Note: Responsible Observer: NA SODIUM 3 00.0100 (A) TOTAL PROTEIN 7.6 G/DL (5.9-8.3) N (Normal) Note: Responsible Observer: TP TOTAL PRO TEIN 300.3750 (A) Reviewed by Thanh Tam DO on ; All test results are final unless otherwise noted. LIPID PANEL [facility] Ordered by Thanh Tam DO on 01/15/[address], [address] Collected: 01/15/2021 Reported: 01/15/2021 18:06 tel :[phone] CHOL/HDL RATIO 3.2 (0-4.3) N (Normal) Note: Responsible Observer: CHOL/HDL RAT IO CHOL/HDL RATIO 300.4700 (A) CHOLESTEROL 196 MG/DL (125-200) N (Normal) Note: Responsible Observer: CHOL CHOLEST GERTRUDE 300.4350 (A) HDL CHOLESTEROL 62 MG/DL (32-96) N (Normal) Note: Responsible Observer: HDL HDL CHOL ESTEROL 300.4600 (A) LDL CHOLESTEROL 119 MG/DL (50-130) N (Normal) Note: Responsible Observer: LDL LDL CHOL ESTEROL 300.4400 (A) TRIGLYCERIDES 74 MG/DL (45-150) N (Normal) Note: Responsible Observer: TRIG TRIGLYC ERIDES 300.4300 (A) Reviewed by Thanh Tam DO on ; All test results are final unless otherwise noted. TSH [facility] Ordered by Thanh Tam DO on 01/15/[address] [place] [address], [address] Collected: 01/15/2021 Reported: 01/15/2021 18:06 tel :[phone] TSH 2.223 uIU/ML (0.470-4.200) N (Normal) Note: Patients should not be tested for 72 hours post fluorescein dye angiography. A false depression of result may occur.Responsible Observer: TSH TSH 300.5500 (A) Reviewed by Thanh Tam DO on ; All test results are final unless otherwise noted. History of Present Illness Includes: History of Present Illness from this encounter Juanis Arriaga is a 60 year old female. - Allergy list reviewed - Medication reconciliation performed - Medication list reviewed with patient and updated in EMR - No headache - No epistaxis - No chest pain or discomfort - No dyspnea - No dizziness - No sleep disturbances; - - No request for consultation by special ist no previous emergency room visit Social History Description Last Updated Alcohol use (female) less than 4 drinks per occasion / 7 per week 04/19/2021 Drug use Denies Drug Use 04/19/2021 Smoking status 04/19/2021 : Current everyday smoker 08/03 ppd 04/19/2021 Secondhand cigarette smoke exposure 04/23/2020 Procedures and Surgical History Includes: Procedures from this encounter Procedures Code Diagnosis Performing Provider Service Location Service Date continue current medication except where otherwise no rocío Transition in care medication list update medical regimen review drug and/or alcohol abuse structured scr eening and brief intervention 04/19/2021 : Prescreening Completed - No Further Screening Indicated Clinical summary provided to patient Clinical summary [...] Date Check-In Time Check-Out Time D iagnosis Primary Care Telehealth FaceTime Thanh Tam [facility] 04/19/2021 9:00AM 9:40AM Generalized Anxiety Disorder, Hyperlipidemia, Medina's Esophagus, Hypertension (Systemic) Insurance Includes: Active Insurance Policies Plan Name Member ID Group # Subscriber Relationship Effective Da nagi 1 - [employer] [id number] Juanis A Corina Self 01/28 - Unknown Advance Directives Includes: Current Advance Directives Directive Pat Aware Third Constitution Party Effective Date Reviewed Status RHIO Yes 06/18/2012 Current and Ve rified Note: 06/18/12 packet given Pt Bill of Rights, Priv Prac, Ad Dir Yes 03/08/2019 Current and Verified Note: Pt declined AD packet Ebola Screening Performed Yes 01/23/2020 Current and Verified Note: Within the last month, have you traveled outside of the [place]? - NO Health Concerns Includes: Health Concerns for current assessmentsNo Active Health Concerns Recorded Goals Includes: Active Goals for current assessmentsNo Active Goals Recorded Interventions Includes: Interventions for current assessmentsNo Interventions Recorded Evaluations & Outcomes Includes: Evaluations & Outcomes for current assessmentsNo Outcomes Recorded
[2021-06-03] MEDS ORDERED: PRED10TA2 (07:32)
[2021-06-03] MEDS ORDERED: DIVA500T94 (07:32)
[2021-06-03] MEDS ORDERED: VENL150C43 (07:32)
[2021-06-03] MEDS ORDERED: diazePAM 5MG TABLET PO ONE (08:35)
[2021-06-03] MEDS ORDERED: LIDOCAINE 5% (LIDODERM) PATCH TD ONE (08:35)
[2021-06-03] MEDS ORDERED: ONDANSETRON 4 MG ORAL DISINTEGRATING TAB PO ONE (08:40)
[2021-06-03 09:11] LABS: APPEARANCE, URINE CLEAR (CLEAR); BACTERIA, URINE AUTO NEGATIVE (NEGATIVE); BILIRUBIN, URINE AUTO NEGATIVE (NEGATIVE); BLOOD, URINE BLOOD NEGATIVE (NEGATIVE); COLOR, URINE STRAW (YELLOW); GLUCOSE, URINE (UA) AUTO NEGATIVE (NEGATIVE); KETONE, URINE AUTO NEGATIVE (NEGATIVE); LEUKOCYTE ESTERASE, URINE AUTO NEGATIVE (NEGATIVE); NITRITE, URINE AUTO NEGATIVE (NEGATIVE); PROTEIN, URINE AUTO NEGATIVE (NEGATIVE); RBC, URINE AUTO 1 /HPF (0-3); SPECIFIC GRAVITY URINE AUTO 1.005 (1.002-1.035); SQUAMOUS EPITHELIAL CELL UR AU 2 /HPF (0-6); UROBILINOGEN, URINE AUTO 0.2 mg/dL (0.0-2.0); WBC, URINE AUTO 1 /HPF (0-3)
[2021-06-03] MEDS ORDERED: NORCO, ANEXSIA 5/325MG TABLET (HYDROcodone/ACETAMINOPHEN) PO ONE (10:10)
--- NOTE | 2021-06-03 11:05 | REPVR ---
PROCEDURE INFORMATION: Exam: CT Lumbar Spine Without Contrast Exam date and time: 06/03/2021 10:18 AM Age: 60 years old Clinical indication: Other: Left back pain; Additional info: Severe back pain with numbness TECHNIQUE: Imaging protocol: Computed tomography images of the lumbar spine without contrast. Radiation optimization: All CT scans at this facility use at least one of these dose optimization techniques: automated exposure control; mA and/or kV adjustment per patient size (includes targeted exams where dose is matched to clinical indication); or iterative reconstruction. COMPARISON: CT ABD PELVIS W/O CONTRAST 03/12/2019 2:13 PM FINDINGS: Vertebrae: I see no evidence of acute fracture, high-grade compression deformity, or lytic/blastic disease. Posterior decompression changes at L4 and L5 as before. Slight interval worsening of the grade 1-2 anterolisthesis of L4 on L5. No obvious spondylolysis. Disc spaces: Bulging discs are most pronounced at L4-L5 and L5-S1 without high-grade central stenosis. Disc material extends into the foramina bilaterally at L4-L5 with least mild encroachment. Epidural space: No epidural fluid. Sacrum/coccyx: Symmetric SI joints. Soft tissues: No paraspinal mass or hematoma. Other findings: Arteriovascular calcification of the aortoiliac system. IMPRESSION: Postoperative and degenerative changes with bulging discs as above. Consider MRI in follow-up. Electronically signed by: Dale Petit On 06/03/2021 11:04:50 AM
[2021-06-03] MEDS ORDERED: MORPHINE 4 MG/ML 1ML VIAL/SYRINGE (J2270) IM ONE (11:15)
--- NOTE | 2021-06-03 13:12 | REPVR ---
PROCEDURE INFORMATION: Exam: MR Lumbar Spine Without Contrast Exam date and time: 06/03/2021 12:48 PM Age: 60 years old Clinical indication: Low back pain and lumbago with sciatica; Left; Prior surgery; Surgery date: 6+ months; Surgery type: L-spine; Additional info: Severe back pain, recomended by radiologist TECHNIQUE: Imaging protocol: Multiplanar magnetic resonance images of the lumbar spine without intravenous contrast. COMPARISON: CT Spine, lumbar w/o contrast 06/03/2021 10:37 AM FINDINGS: Vertebrae: Evaluation of the marrow demonstrates no evidence of acute fracture line, high-grade compression deformity, worrisome malalignment, or marrow edema. Stable grade 1-2 anterolisthesis of L4 on L5. Limited Modic type changes in the endplates T11-12. Transitional anatomy at the lumbosacral junction as on the CT. Posterior decompression changes at L4 on L5. Moderate posterior element hypertrophic changes at the non operative levels. Small amounts of fluid in the facet joints at multiple levels. Spinal epidural space: No evidence of arachnoiditis or epidural fluid. Spinal cord: The conus terminates at L1-L2 without abnormal cord signal. L1-L2: Minimal bulging of the disc at L1-L2 without significant mass effect. L2-L3: There is mild bulging of the disc at L2-L3 with minimal central stenosis along with mild left-sided foraminal encroachment. L3-L4: At L3-L4, demonstrates minimal broad bulging of the disc with minimal central and bilateral foraminal encroachment. L4-L5: At L4-L5, there is uncovering of the bulging disc with posterior decompression changes. No significant central stenosis. There is at least moderate bilateral foraminal encroachment at this level. L5-S1: At L5-S1, minimal bulging of the disc is appreciated without significant central stenosis. There is also mild left and [id number] right foraminal encroachment. Sacrum/coccyx: Symmetric SI joints. Soft tissues: Moderate posterior lower paraspinal muscular atrophy without paraspinal mass or hematoma. Kidneys and ureters: No obvious renal lesions. Other findings: No aortic aneurysm. Disc desiccation at multiple levels with relative preservation of the disc spaces. IMPRESSION: Postoperative and degenerative changes with transitional anatomy and disc abnormalities. Mass effect most pronounced at L4-L5. Electronically signed by: Dale Petit On 06/03/2021 13:12:07 PM
[2021-06-03] MEDS ORDERED: LIDO5DIS41 TD (13:25)
[2021-06-03 13:58] VITALS: BP 140/82
[2021-06-03] MEDS ORDERED: **NOTE PATIENT COMMENT** MISC XX SCH (21:00)
== END 2021-06-03 14:00 | disposition home or self-care (01) ==
LOC: M ED 07:20
DX: M54.30 Sciatica, unspecified side (principal); M51.26 Other intervertebral disc displacement, lumbar region; I48.91 Unspecified atrial fibrillation; I10 Essential (primary) hypertension; Z86.73 Personal history of transient ischemic attack (TIA), and cerebral infarction without residual deficits; F17.200 Nicotine dependence, unspecified, uncomplicated; F12.10 Cannabis abuse, uncomplicated; Z79.899 Other long term (current) drug therapy; Z88.5 Allergy status to narcotic agent
CPT/HCPCS: 72131; 72148; 81001; 99283; J2270; Q0162

== ENCOUNTER 2022-04-20 15:10 | Inpatient (IN) | payer MEDICARE ==
[~2022-04-20] VITALS: Ht 165.1 cm; Wt 61.4 kg
[~2022-04-20 15:10] MED LIST changes: +DIVA500T94; +LIDO5DIS41 TD; -MONT10TA10 PO; +MONT10TA97 PO; -OMEP-221 PO; +OMEP40CA5 PO; +PRED10TA2
[2022-04-20 16:50] VITALS: BP 116/73
[2022-04-20] MEDS ORDERED: APAP325T4 PO (17:15)
[2022-04-20] MEDS ORDERED: HEPA500057 SC (17:15)
[2022-04-20] MEDS ORDERED: BUSP1TAB PO (17:15)
[2022-04-20] MEDS ORDERED: METO1TAB33 PO (17:15)
[2022-04-20] MEDS ORDERED: OXYC-517 PO (17:15)
[2022-04-20] MEDS ORDERED: ATOR40TA75 PO (17:15)
[2022-04-20] MEDS ORDERED: MELA5CAP2 PO (17:16)
[2022-04-20] MEDS ORDERED: DIVA500T9 PO (17:16)
[2022-04-20] MEDS ORDERED: PANT-23 PO (17:16)
[2022-04-20] MEDS ORDERED: SENN-111 PO (17:18)
[2022-04-20] MEDS ORDERED: DOCU100C16 PO (17:18)
[2022-04-20] MEDS ORDERED: ONDA-83 PO (17:18)
[2022-04-20] MEDS ORDERED: HOME MED LIST COMPLETE! XX SCH (17:20)
[2022-04-20] MEDS ORDERED: QUET50TA4 PO (17:20)
[2022-04-20] MEDS ORDERED: oxyCODONE 5MG TAB PO PRN (17:25)
[2022-04-20] MEDS ORDERED: PILL CUTTER 1 EACH XX PRN (17:45)
[2022-04-20] MEDS ORDERED: FLUTICASONE PROP 0.05% NASAL SPRAY 16 GM (FLONASE) NARES PRN (17:50)
[2022-04-20 18:37] LABS: APPEARANCE, URINE MANUAL HAZY (CLEAR); COLOR, URINE MANUAL YELLOW (YELLOW)
[2022-04-20 18:38] LABS: PH,URINE MAN 5.5 UNITS (5.0 - 7.0)
[2022-04-20 18:39] LABS: BILIRUBIN, URINE MANUAL NEGATIVE (NEGATIVE); BLOOD URINE MANUAL NEGATIVE (NEGATIVE); GLUCOSE, URINE (UA) MANUAL NEGATIVE (NEGATIVE); KETONE, URINE MANUAL 1+ mg/dL (NEGATIVE); LEUKOCYTE ESTERASE, URINE MAN POSITIVE (NEGATIVE); NITRITE, URINE MANUAL NEGATIVE (NEGATIVE); PROTEIN, URINE MANUAL TRACE mg/dL (NEGATIVE); UROBILINOGEN, URINE MANUAL NORMAL (NORMAL)
[2022-04-20 19:01] LABS: RENAL EPITHELIAL CELLS, URINE SMALL AMOUNT /hpf; SQUAMOUS EPITHELIAL CELL URINE MOD AMOUNT /hpf (SMALL AMT); TRANSITIONAL EPI CELLS, URINE MOD AMOUNT /hpf; WBC, URINE 15-20 /hpf (0-3)
[2022-04-20 19:02] LABS: BACTERIA, URINE SMALL AMOUNT; HYALINE CAST, URINE NONE SEEN /lpf (0-1); MUCUS, URINE SMALL AMOUNT (NEGATIVE)
[2022-04-20 20:00] VITALS: BP 132/82
[2022-04-20] MEDS: ATORVASTATIN 20 MG TAB PO SCH (20:13)
[2022-04-20] MEDS: HEPARIN SOD (PORCINE) 5000UNITS/ML 1ML VIAL/SYRINGE SQ SCH (20:13)
[2022-04-20] MEDS: busPIRone 5 MG TAB PO SCH (20:13)
[2022-04-20] MEDS: TOPIRAMATE (TopAMAX) 25 MG TAB PO SCH (20:13)
[2022-04-20] MEDS: ACETAMINOPHEN TAB 650MG DOSE (2X325MG) PO PRN (20:14)
[2022-04-20] MEDS: oxyCODONE 5MG TAB PO PRN (22:55)
[2022-04-21] MEDS ORDERED: diphenhydrAMINE 25MG CAP PO PRN (01:45)
[2022-04-21 05:36] VITALS: BP 124/67
[2022-04-21 06:50] LABS: BASO # 0.1 10^3/uL (0.0-0.2); BASO % 1.4 % (0.0-1.0); EOS # 0.2 10^3/uL (0.0-0.5); HEMATOCRIT 29.7 % (36.0-47.0); HEMOGLOBIN 9.6 g/dl (12.0-15.5); LYMPH # 1.1 10^3/uL (1.5-5.0); LYMPH % 22.2 % (24.0-44.0); MEAN CORPUSCULAR HEMOGLOBIN 32.1 pg (27.0-33.0); MEAN CORPUSCULAR HGB CONC 32.3 g/dl (32.0-36.5); MEAN CORPUSCULAR VOLUME 99.3 fl (80.0-96.0); MONO # 0.7 10^3/uL (0.0-0.8); MONO % 13.2 % (2.0-8.0); NEUTROPHILS # 2.8 10^3/uL (1.5-8.5); PLATELET COUNT, AUTOMATED 200 10^3/uL (150-450); RED BLOOD COUNT 2.99 10^6/uL (4.00-5.40)
[2022-04-21 07:32] LABS: ALBUMIN 2.5 GM/DL (3.2-5.2); ALT/SGPT 36 U/L (12-78); BILIRUBIN,TOTAL 0.2 MG/DL (0.2-1.0); BLOOD UREA NITROGEN 15 MG/DL (7-18); CALCIUM LEVEL 8.7 MG/DL (8.8-10.2); CARBON DIOXIDE LEVEL 26 MEQ/L (21-32); CHLORIDE LEVEL 110 MEQ/L (98-107); GLOMERULAR FILTRATION RATE > 60.0 (>45); GLUCOSE, FASTING 85 MG/DL (70-100); POTASSIUM SERUM 3.8 MEQ/L (3.5-5.1); SODIUM LEVEL 142 MEQ/L (136-145); TOTAL PROTEIN 5.6 GM/DL (6.4-8.2)
[2022-04-21] MEDS: MONTELUKAST 10 MG TAB PO SCH (09:33)
[2022-04-21] MEDS: busPIRone 5 MG TAB PO SCH ×2 (09:33→20:23)
[2022-04-21] MEDS: TOPIRAMATE (TopAMAX) 25 MG TAB PO SCH ×2 (09:33→20:23)
[2022-04-21] MEDS: PANTOPRAZOLE 40MG TAB (PROTONIX) PO SCH (09:33)
[2022-04-21] MEDS: DIVALPROEX 500MG *ER* TAB PO SCH (09:33)
[2022-04-21] MEDS: HEPARIN SOD (PORCINE) 5000UNITS/ML 1ML VIAL/SYRINGE SQ SCH ×2 (09:34→20:23)
[2022-04-21] MEDS: METOPROLOL SUCC (TopROL XL) 100MG *XL* TAB PO SCH (09:34)
[2022-04-21] MEDS ORDERED: TRIAMCINOLONE ACETONIDE 0.025 % 80 GM CREAM TOP PRN (13:50)
[2022-04-21 14:00] VITALS: BP 116/72
[2022-04-21] MEDS: oxyCODONE 5MG TAB PO PRN (17:47)
[2022-04-21] MEDS: BACTRIM 160MG/800MG DS TAB PO SCH (20:22)
[2022-04-21] MEDS: ATORVASTATIN 20 MG TAB PO SCH (20:23)
[2022-04-22 08:00] VITALS: BP 119/78
[2022-04-22] MEDS: TOPIRAMATE (TopAMAX) 25 MG TAB PO SCH ×2 (10:00→20:11)
[2022-04-22] MEDS: PANTOPRAZOLE 40MG TAB (PROTONIX) PO SCH (10:01)
[2022-04-22] MEDS: MONTELUKAST 10 MG TAB PO SCH (10:01)
[2022-04-22] MEDS: DIVALPROEX 500MG *ER* TAB PO SCH (10:01)
[2022-04-22] MEDS: BACTRIM 160MG/800MG DS TAB PO SCH ×2 (10:01→20:12)
[2022-04-22] MEDS: busPIRone 5 MG TAB PO SCH ×2 (10:01→20:12)
[2022-04-22] MEDS: METOPROLOL SUCC (TopROL XL) 100MG *XL* TAB PO SCH (10:02)
[2022-04-22] MEDS: ONDANSETRON 4MG TAB PO PRN (10:03)
[2022-04-22] MEDS: HEPARIN SOD (PORCINE) 5000UNITS/ML 1ML VIAL/SYRINGE SQ SCH ×2 (10:03→20:11)
[2022-04-22 14:00] VITALS: BP 136/80
[2022-04-22] MEDS ORDERED: diphenhydrAMINE 25MG CAP PO PRN (18:00)
[2022-04-22 20:00] VITALS: BP 102/64
[2022-04-22] MEDS: ATORVASTATIN 20 MG TAB PO SCH (20:11)
[2022-04-22] MEDS: oxyCODONE 5MG TAB PO PRN (21:19)
[2022-04-23] MEDS: ACETAMINOPHEN TAB 650MG DOSE (2X325MG) PO PRN ×3 (01:35→20:33)
[2022-04-23] MEDS: oxyCODONE 5MG TAB PO PRN ×2 (05:54→16:14)
[2022-04-23 06:00] VITALS: BP 91/53
[2022-04-23] MEDS: METOPROLOL SUCC (TopROL XL) 100MG *XL* TAB PO SCH (07:35)
[2022-04-23] MEDS: MONTELUKAST 10 MG TAB PO SCH (08:31)
[2022-04-23] MEDS: BACTRIM 160MG/800MG DS TAB PO SCH ×2 (08:31→20:33)
[2022-04-23] MEDS: DIVALPROEX 500MG *ER* TAB PO SCH (08:32)
[2022-04-23] MEDS: PANTOPRAZOLE 40MG TAB (PROTONIX) PO SCH (08:32)
[2022-04-23] MEDS: TOPIRAMATE (TopAMAX) 25 MG TAB PO SCH ×2 (08:32→20:32)
[2022-04-23] MEDS: CALCIUM CARBONATE 500 MG CHEW U/D PO SCH (08:32)
[2022-04-23] MEDS: busPIRone 5 MG TAB PO SCH ×2 (08:32→20:33)
[2022-04-23] MEDS: HEPARIN SOD (PORCINE) 5000UNITS/ML 1ML VIAL/SYRINGE SQ SCH ×2 (08:33→20:34)
[2022-04-23 10:34] LABS: HEMATOCRIT 33.7 % (36.0-47.0); HEMOGLOBIN 10.6 g/dl (12.0-15.5); MEAN CORPUSCULAR HEMOGLOBIN 31.3 pg (27.0-33.0); MEAN CORPUSCULAR HGB CONC 31.5 g/dl (32.0-36.5); MEAN CORPUSCULAR VOLUME 99.4 fl (80.0-96.0); PLATELET COUNT, AUTOMATED 279 10^3/uL (150-450); RED BLOOD COUNT 3.39 10^6/uL (4.00-5.40); WHITE BLOOD COUNT 5.2 10^3/uL (4.0-10.0)
[2022-04-23 14:00] VITALS: BP 106/58
[2022-04-23] MEDS: DOCUSATE SODIUM 100MG CAPSULE PO PRN (16:14)
[2022-04-23 20:00] VITALS: BP 115/58
[2022-04-23] MEDS: SENNA 8.6 MG TAB (SENOKOT) PO PRN (20:33)
[2022-04-23] MEDS: ATORVASTATIN 20 MG TAB PO SCH (20:34)
[2022-04-24] MEDS: oxyCODONE 5MG TAB PO PRN ×2 (01:31→16:16)
[2022-04-24 06:00] VITALS: BP 100/60
[2022-04-24] MEDS: METOPROLOL SUCC (TopROL XL) 100MG *XL* TAB PO SCH (07:23)
[2022-04-24] MEDS: TOPIRAMATE (TopAMAX) 25 MG TAB PO SCH ×2 (08:29→20:53)
[2022-04-24] MEDS: MONTELUKAST 10 MG TAB PO SCH (08:29)
[2022-04-24] MEDS: busPIRone 5 MG TAB PO SCH ×2 (08:29→20:54)
[2022-04-24] MEDS: CALCIUM CARBONATE 500 MG CHEW U/D PO SCH (08:29)
[2022-04-24] MEDS: PANTOPRAZOLE 40MG TAB (PROTONIX) PO SCH (08:29)
[2022-04-24] MEDS: DOCUSATE SODIUM 100MG CAPSULE PO PRN (08:30)
[2022-04-24] MEDS: HEPARIN SOD (PORCINE) 5000UNITS/ML 1ML VIAL/SYRINGE SQ SCH ×2 (08:30→20:53)
[2022-04-24] MEDS: DIVALPROEX 500MG *ER* TAB PO SCH (08:30)
[2022-04-24] MEDS: ACETAMINOPHEN TAB 650MG DOSE (2X325MG) PO PRN ×2 (08:31→20:53)
[2022-04-24] MEDS: BACTRIM 160MG/800MG DS TAB PO SCH ×2 (08:31→20:54)
[2022-04-24 14:00] VITALS: BP 107/66
[2022-04-24 20:00] VITALS: BP 126/77
[2022-04-24] MEDS: ATORVASTATIN 20 MG TAB PO SCH (20:54)
[2022-04-25 05:55] VITALS: BP 115/77
[2022-04-25] MEDS: oxyCODONE 5MG TAB PO PRN ×2 (09:35→20:43)
[2022-04-25] MEDS: busPIRone 5 MG TAB PO SCH ×2 (09:35→20:44)
[2022-04-25] MEDS: PANTOPRAZOLE 40MG TAB (PROTONIX) PO SCH (09:35)
[2022-04-25] MEDS: CALCIUM CARBONATE 500 MG CHEW U/D PO SCH (09:35)
[2022-04-25] MEDS: DIVALPROEX 500MG *ER* TAB PO SCH (09:36)
[2022-04-25] MEDS: TOPIRAMATE (TopAMAX) 25 MG TAB PO SCH ×2 (09:36→20:41)
[2022-04-25] MEDS: MONTELUKAST 10 MG TAB PO SCH (09:36)
[2022-04-25] MEDS: BACTRIM 160MG/800MG DS TAB PO SCH ×2 (09:36→20:43)
[2022-04-25] MEDS: METOPROLOL SUCC (TopROL XL) 100MG *XL* TAB PO SCH (09:37)
[2022-04-25] MEDS: HEPARIN SOD (PORCINE) 5000UNITS/ML 1ML VIAL/SYRINGE SQ SCH ×2 (09:40→20:42)
[2022-04-25 10:15] LABS: ALBUMIN 3.1 GM/DL (3.2-5.2); ALT/SGPT 35 U/L (12-78); BILIRUBIN,TOTAL 0.2 MG/DL (0.2-1.0); BLOOD UREA NITROGEN 17 MG/DL (7-18); CALCIUM LEVEL 9.6 MG/DL (8.8-10.2); CARBON DIOXIDE LEVEL 19 MEQ/L (21-32); CHLORIDE LEVEL 106 MEQ/L (98-107); CREATININE FOR GFR 0.91 MG/DL (0.55-1.30); GLOMERULAR FILTRATION RATE > 60.0 (>45); GLUCOSE, FASTING 124 MG/DL (70-100); POTASSIUM SERUM 4.1 MEQ/L (3.5-5.1); SODIUM LEVEL 136 MEQ/L (136-145); TOTAL PROTEIN 7.3 GM/DL (6.4-8.2)
[2022-04-25] MEDS ORDERED: CALCIUM CARBONATE 500 MG CHEW U/D PO PRN (11:40)
[2022-04-25 14:00] VITALS: BP 103/66
[2022-04-25 20:00] VITALS: BP 96/60
[2022-04-25] MEDS: ATORVASTATIN 20 MG TAB PO SCH (20:42)
[2022-04-26 05:59] VITALS: BP 104/54
[2022-04-26 06:00] VITALS: BP 104/54
[2022-04-26 07:34] LABS: HEMATOCRIT 35.3 % (36.0-47.0); HEMOGLOBIN 11.1 g/dl (12.0-15.5); MEAN CORPUSCULAR HEMOGLOBIN 31.6 pg (27.0-33.0); MEAN CORPUSCULAR HGB CONC 31.4 g/dl (32.0-36.5); MEAN CORPUSCULAR VOLUME 100.6 fl (80.0-96.0); PLATELET COUNT, AUTOMATED 334 10^3/uL (150-450); RED BLOOD COUNT 3.51 10^6/uL (4.00-5.40); WHITE BLOOD COUNT 6.4 10^3/uL (4.0-10.0)
[2022-04-26] MEDS: HEPARIN SOD (PORCINE) 5000UNITS/ML 1ML VIAL/SYRINGE SQ SCH ×2 (08:48→20:25)
[2022-04-26] MEDS: TOPIRAMATE (TopAMAX) 25 MG TAB PO SCH ×2 (08:49→20:27)
[2022-04-26] MEDS: DIVALPROEX 500MG *ER* TAB PO SCH (08:49)
[2022-04-26] MEDS: MONTELUKAST 10 MG TAB PO SCH (08:49)
[2022-04-26] MEDS: PANTOPRAZOLE 40MG TAB (PROTONIX) PO SCH (08:49)
[2022-04-26] MEDS: busPIRone 5 MG TAB PO SCH ×2 (08:49→20:27)
[2022-04-26] MEDS: BACTRIM 160MG/800MG DS TAB PO SCH ×2 (08:49→20:29)
[2022-04-26] MEDS: ONDANSETRON 4MG TAB PO PRN (08:49)
[2022-04-26] MEDS: METOPROLOL SUCC (TopROL XL) 50MG **XL** TAB PO SCH (08:50)
[2022-04-26] MEDS: ACETAMINOPHEN TAB 650MG DOSE (2X325MG) PO PRN ×3 (08:51→20:26)
[2022-04-26] MEDS ORDERED: lisinopriL 5 MG TAB PO SCH (09:00)
[2022-04-26 09:22] LABS: INFLUENZA A AMPLIFICATION NEGATIVE (NEGATIVE); INFLUENZA B AMPLIFICATION NEGATIVE (NEGATIVE)
[2022-04-26 14:00] VITALS: BP 115/63
[2022-04-26] MEDS: oxyCODONE 5MG TAB PO PRN ×2 (14:31→20:26)
[2022-04-26 16:41] LABS: RSV AMPLIFICATION NEGATIVE (NEGATIVE)
[2022-04-26 20:00] VITALS: BP 108/63
[2022-04-26] MEDS: DOCUSATE SODIUM 100MG CAPSULE PO PRN (20:27)
[2022-04-26] MEDS: ATORVASTATIN 20 MG TAB PO SCH (20:29)
[2022-04-27] MEDS: oxyCODONE 5MG TAB PO PRN ×3 (04:28→21:59)
[2022-04-27 06:00] VITALS: BP 108/62
[2022-04-27] MEDS: METOPROLOL SUCC (TopROL XL) 50MG **XL** TAB PO SCH (07:16)
[2022-04-27] MEDS: HEPARIN SOD (PORCINE) 5000UNITS/ML 1ML VIAL/SYRINGE SQ SCH ×2 (07:22→20:14)
[2022-04-27] MEDS: DOCUSATE SODIUM 100MG CAPSULE PO PRN (07:23)
[2022-04-27] MEDS: MONTELUKAST 10 MG TAB PO SCH (07:23)
[2022-04-27] MEDS: PANTOPRAZOLE 40MG TAB (PROTONIX) PO SCH (07:23)
[2022-04-27] MEDS: busPIRone 5 MG TAB PO SCH ×2 (07:23→20:13)
[2022-04-27] MEDS: ACETAMINOPHEN TAB 650MG DOSE (2X325MG) PO PRN ×2 (07:28→20:14)
[2022-04-27] MEDS: ONDANSETRON 4MG TAB PO PRN (08:40)
[2022-04-27] MEDS: BACTRIM 160MG/800MG DS TAB PO SCH (09:44)
[2022-04-27] MEDS: TOPIRAMATE (TopAMAX) 25 MG TAB PO SCH ×2 (09:44→20:13)
[2022-04-27] MEDS: DIVALPROEX 500MG *ER* TAB PO SCH (09:44)
[2022-04-27 14:00] VITALS: BP 117/64
[2022-04-27] MEDS ORDERED: TIXAGEVIMAB/CILGAVIMAB (EVUSHELD) 150MG-150MG 3ML VIAL (EUA) IM NO SITE ONE (15:00)
[2022-04-27 20:00] VITALS: BP 144/84
[2022-04-27] MEDS: ATORVASTATIN 20 MG TAB PO SCH (20:14)
[2022-04-28 06:00] VITALS: BP 142/86
[2022-04-28] MEDS: HEPARIN SOD (PORCINE) 5000UNITS/ML 1ML VIAL/SYRINGE SQ SCH ×2 (07:11→20:00)
[2022-04-28] MEDS: oxyCODONE 5MG TAB PO PRN ×2 (07:12→17:35)
[2022-04-28] MEDS: MONTELUKAST 10 MG TAB PO SCH (07:12)
[2022-04-28] MEDS: TOPIRAMATE (TopAMAX) 25 MG TAB PO SCH ×2 (07:13→19:59)
[2022-04-28] MEDS: METOPROLOL SUCC (TopROL XL) 50MG **XL** TAB PO SCH (07:13)
[2022-04-28] MEDS: busPIRone 5 MG TAB PO SCH ×2 (07:13→19:59)
[2022-04-28] MEDS: PANTOPRAZOLE 40MG TAB (PROTONIX) PO SCH (07:13)
[2022-04-28] MEDS: DIVALPROEX 500MG *ER* TAB PO SCH (07:14)
[2022-04-28] MEDS: ACETAMINOPHEN TAB 650MG DOSE (2X325MG) PO PRN ×2 (09:33→20:00)
[2022-04-28 14:00] VITALS: BP 115/74
[2022-04-28] MEDS: ATORVASTATIN 20 MG TAB PO SCH (19:58)
[2022-04-28 19:59] VITALS: BP 130/79
[2022-04-29 06:00] VITALS: BP 138/69
[2022-04-29] MEDS: HEPARIN SOD (PORCINE) 5000UNITS/ML 1ML VIAL/SYRINGE SQ SCH ×2 (07:31→20:51)
[2022-04-29] MEDS: DIVALPROEX 500MG *ER* TAB PO SCH (07:31)
[2022-04-29] MEDS: MONTELUKAST 10 MG TAB PO SCH (07:32)
[2022-04-29] MEDS: METOPROLOL SUCC (TopROL XL) 50MG **XL** TAB PO SCH (07:32)
[2022-04-29] MEDS: PANTOPRAZOLE 40MG TAB (PROTONIX) PO SCH (07:32)
[2022-04-29] MEDS: oxyCODONE 5MG TAB PO PRN ×2 (07:32→20:53)
[2022-04-29] MEDS: busPIRone 5 MG TAB PO SCH ×2 (07:32→20:51)
[2022-04-29] MEDS: TOPIRAMATE (TopAMAX) 25 MG TAB PO SCH ×2 (10:04→20:53)
[2022-04-29 10:11] LABS: ALBUMIN 2.8 GM/DL (3.2-5.2); ALT/SGPT 34 U/L (12-78); BILIRUBIN,TOTAL 0.4 MG/DL (0.2-1.0); BLOOD UREA NITROGEN 19 MG/DL (7-18); CALCIUM LEVEL 8.9 MG/DL (8.8-10.2); CARBON DIOXIDE LEVEL 20 MEQ/L (21-32); CHLORIDE LEVEL 104 MEQ/L (98-107); CREATININE FOR GFR 0.89 MG/DL (0.55-1.30); GLOMERULAR FILTRATION RATE > 60.0 (>45); GLUCOSE, FASTING 205 MG/DL (70-100); POTASSIUM SERUM 5.6 MEQ/L (3.5-5.1); SODIUM LEVEL 134 MEQ/L (136-145); TOTAL PROTEIN 6.6 GM/DL (6.4-8.2)
[2022-04-29 10:23] LABS: HEMATOCRIT 36.4 % (36.0-47.0); HEMOGLOBIN 11.4 g/dl (12.0-15.5); MEAN CORPUSCULAR HEMOGLOBIN 31.6 pg (27.0-33.0); MEAN CORPUSCULAR HGB CONC 31.3 g/dl (32.0-36.5); MEAN CORPUSCULAR VOLUME 100.8 fl (80.0-96.0); PLATELET COUNT, AUTOMATED 357 10^3/uL (150-450); RED BLOOD COUNT 3.61 10^6/uL (4.00-5.40); WHITE BLOOD COUNT 6.2 10^3/uL (4.0-10.0)
[2022-04-29 14:00] VITALS: BP 114/72
[2022-04-29 15:18] LABS: BLOOD UREA NITROGEN 17 MG/DL (7-18); CALCIUM LEVEL 9.1 MG/DL (8.8-10.2); CARBON DIOXIDE LEVEL 26 MEQ/L (21-32); CHLORIDE LEVEL 104 MEQ/L (98-107); GLOMERULAR FILTRATION RATE > 60.0 (>45); GLUCOSE, FASTING 96 MG/DL (70-100); POTASSIUM SERUM 3.7 MEQ/L (3.5-5.1); SODIUM LEVEL 137 MEQ/L (136-145)
[2022-04-29 20:00] VITALS: BP 120/76
[2022-04-29] MEDS: ATORVASTATIN 20 MG TAB PO SCH (20:53)
[2022-04-29] MEDS: DOCUSATE SODIUM 100MG CAPSULE PO PRN (21:02)
[2022-04-29] MEDS: SENNA 8.6 MG TAB (SENOKOT) PO PRN (21:02)
[2022-04-30 06:00] VITALS: BP 140/64
[2022-04-30] MEDS: oxyCODONE 5MG TAB PO PRN ×3 (08:32→20:48)
[2022-04-30] MEDS: TOPIRAMATE (TopAMAX) 25 MG TAB PO SCH ×2 (08:32→20:49)
[2022-04-30] MEDS: PANTOPRAZOLE 40MG TAB (PROTONIX) PO SCH (08:32)
[2022-04-30] MEDS: DIVALPROEX 500MG *ER* TAB PO SCH (08:32)
[2022-04-30] MEDS: busPIRone 5 MG TAB PO SCH ×2 (08:33→20:49)
[2022-04-30] MEDS: HEPARIN SOD (PORCINE) 5000UNITS/ML 1ML VIAL/SYRINGE SQ SCH ×2 (08:33→20:47)
[2022-04-30] MEDS: MONTELUKAST 10 MG TAB PO SCH (08:33)
[2022-04-30] MEDS: METOPROLOL SUCC (TopROL XL) 50MG **XL** TAB PO SCH (08:33)
[2022-04-30 08:52] LABS: BLOOD UREA NITROGEN 19 MG/DL (7-18); CALCIUM LEVEL 8.8 MG/DL (8.8-10.2); CARBON DIOXIDE LEVEL 24 MEQ/L (21-32); CHLORIDE LEVEL 109 MEQ/L (98-107); CREATININE FOR GFR 0.77 MG/DL (0.55-1.30); GLOMERULAR FILTRATION RATE > 60.0 (>45); GLUCOSE, FASTING 114 MG/DL (70-100); POTASSIUM SERUM 3.9 MEQ/L (3.5-5.1); SODIUM LEVEL 139 MEQ/L (136-145)
[2022-04-30 14:00] VITALS: BP 106/73
[2022-04-30 19:32] VITALS: BP 129/63
[2022-04-30] MEDS: SENNA 8.6 MG TAB (SENOKOT) PO PRN (20:47)
[2022-04-30] MEDS: ACETAMINOPHEN TAB 650MG DOSE (2X325MG) PO PRN (20:47)
[2022-04-30] MEDS: DOCUSATE SODIUM 100MG CAPSULE PO PRN (20:47)
[2022-04-30] MEDS: ATORVASTATIN 20 MG TAB PO SCH (20:48)
[2022-05-01 05:38] VITALS: BP 114/65
[2022-05-01] MEDS: MONTELUKAST 10 MG TAB PO SCH (08:36)
[2022-05-01] MEDS: METOPROLOL SUCC (TopROL XL) 50MG **XL** TAB PO SCH (08:37)
[2022-05-01] MEDS: DIVALPROEX 500MG *ER* TAB PO SCH (08:37)
[2022-05-01] MEDS: busPIRone 5 MG TAB PO SCH ×2 (08:37→20:20)
[2022-05-01] MEDS: HEPARIN SOD (PORCINE) 5000UNITS/ML 1ML VIAL/SYRINGE SQ SCH ×2 (08:38→20:19)
[2022-05-01] MEDS: TOPIRAMATE (TopAMAX) 25 MG TAB PO SCH ×2 (08:38→20:20)
[2022-05-01] MEDS: PANTOPRAZOLE 40MG TAB (PROTONIX) PO SCH (08:38)
[2022-05-01] MEDS: oxyCODONE 5MG TAB PO PRN ×2 (08:38→17:59)
[2022-05-01 14:00] VITALS: BP 113/55
[2022-05-01 20:00] VITALS: BP 118/69
[2022-05-01] MEDS: SENNA 8.6 MG TAB (SENOKOT) PO PRN (20:20)
[2022-05-01] MEDS: ACETAMINOPHEN TAB 650MG DOSE (2X325MG) PO PRN (20:20)
[2022-05-01] MEDS: ATORVASTATIN 20 MG TAB PO SCH (20:20)
[2022-05-01] MEDS: DOCUSATE SODIUM 100MG CAPSULE PO PRN (20:25)
[2022-05-01] MEDS: ONDANSETRON 4MG TAB PO PRN (20:43)
[2022-05-02 05:37] LABS: MEAN CORPUSCULAR HEMOGLOBIN 31.9 pg (27.0-33.0); MEAN CORPUSCULAR HGB CONC 32.3 g/dl (32.0-36.5); PLATELET COUNT, AUTOMATED 279 10^3/uL (150-450); RED BLOOD COUNT 3.13 10^6/uL (4.00-5.40); WHITE BLOOD COUNT 6.1 10^3/uL (4.0-10.0)
[2022-05-02 06:00] VITALS: BP 127/68
[2022-05-02] MEDS ORDERED: OXYC-517 PO (08:52)
[2022-05-02] MEDS ORDERED: DIVA500T9 PO (08:52)
[2022-05-02] MEDS ORDERED: MONT10TA97 PO (08:52)
[2022-05-02] MEDS ORDERED: TOPA1TAB PO (08:52)
[2022-05-02] MEDS ORDERED: METO1TAB7 PO (08:52)
[2022-05-02] MEDS: HEPARIN SOD (PORCINE) 5000UNITS/ML 1ML VIAL/SYRINGE SQ SCH (09:23)
[2022-05-02] MEDS: DIVALPROEX 500MG *ER* TAB PO SCH (09:24)
[2022-05-02] MEDS: MONTELUKAST 10 MG TAB PO SCH (09:25)
[2022-05-02] MEDS: TOPIRAMATE (TopAMAX) 25 MG TAB PO SCH (09:25)
[2022-05-02] MEDS: PANTOPRAZOLE 40MG TAB (PROTONIX) PO SCH (09:25)
[2022-05-02 09:26] VITALS: BP 127/68
[2022-05-02] MEDS: METOPROLOL SUCC (TopROL XL) 50MG **XL** TAB PO SCH (09:26)
[2022-05-02] MEDS: busPIRone 5 MG TAB PO SCH (09:26)
[2022-05-02] MEDS: ACETAMINOPHEN TAB 650MG DOSE (2X325MG) PO PRN (09:26)
[2022-05-06] MEDS ORDERED: OXYC-517 PO (09:26)
[2022-05-06] MEDS ORDERED: TEMO100C17 PO (18:17)
[2022-05-06] MEDS ORDERED: TEMO5CAP17 PO (18:19)
[2022-05-06] MEDS ORDERED: TEMO20CA21 PO (18:22)
[2022-05-06] MEDS ORDERED: BACT800T5 PO (18:27)
[2022-05-10] MEDS ORDERED: BACT800T5 PO (11:10)
== END 2022-05-02 12:55 | disposition home health service (06) | DRG 57 ==
LOC: M PM&R 15:49
PROVIDERS: ADMIT Physical Medicine & Rehabilitation; ATTEND Physical Medicine & Rehabilitation
DX: G81.94 Hemiplegia, unspecified affecting left nondominant side (principal); E87.1 Hypo-osmolality and hyponatremia; R13.10 Dysphagia, unspecified; R32 Unspecified urinary incontinence; R39.11 Hesitancy of micturition; G43.909 Migraine, unspecified, not intractable, without status migrainosus; M25.572 Pain in left ankle and joints of left foot; Z86.73 Personal history of transient ischemic attack (TIA), and cerebral infarction without residual deficits; E78.5 Hyperlipidemia, unspecified; I10 Essential (primary) hypertension; E87.6 Hypokalemia; I25.10 Atherosclerotic heart disease of native coronary artery without angina pectoris; H53.9 Unspecified visual disturbance; Z85.41 Personal history of malignant neoplasm of cervix uteri; Z85.038 Personal history of other malignant neoplasm of large intestine; F39 Unspecified mood [affective] disorder; Z88.8 Allergy status to other drugs, medicaments and biological substances; Z79.899 Other long term (current) drug therapy; R31.9 Hematuria, unspecified; K21.9 Gastro-esophageal reflux disease without esophagitis; J06.9 Acute upper respiratory infection, unspecified; I95.9 Hypotension, unspecified; R42 Dizziness and giddiness; F41.9 Anxiety disorder, unspecified

== ENCOUNTER 2022-05-11 11:09 | Inpatient (IN) | payer MEDICARE ==
[~2022-05-11] VITALS: Ht 165.1 cm; Wt 76.4 kg
[~2022-05-11 11:09] MED LIST changes: +APAP325T4 PO; +ATOR40TA75 PO; +BACT800T5 PO; +BUSP1TAB PO; +DIVA500T9 PO; +DOCU100C16 PO; +HEPA500057 SC; +MELA5CAP2 PO; +METO1TAB33 PO; +METO1TAB7 PO; +ONDA-83 PO; +OXYC-517 PO; +PANT-23 PO; +QUET50TA4 PO; +SENN-111 PO; +TEMO100C17 PO; +TEMO20CA21 PO; +TEMO5CAP17 PO; +TEMOZOLOMIDE PO SCH; +TOPA1TAB PO
[2022-05-11] MEDS: NS 1,000 ML IV SCH ×2 (12:19→20:20)
[2022-05-11 12:30] LABS: BASO # 0.1 10^3/uL (0.0-0.2); EOS # 0.1 10^3/uL (0.0-0.5); EOS % 1.2 % (0.0-3.0); HEMATOCRIT 36.3 % (36.0-47.0); HEMOGLOBIN 11.4 g/dl (12.0-15.5); LYMPH # 1.2 10^3/uL (1.5-5.0); LYMPH % 22.8 % (24.0-44.0); MEAN CORPUSCULAR HEMOGLOBIN 31.1 pg (27.0-33.0); MEAN CORPUSCULAR HGB CONC 31.4 g/dl (32.0-36.5); MEAN CORPUSCULAR VOLUME 99.2 fl (80.0-96.0); MONO # 0.6 10^3/uL (0.0-0.8); MONO % 12.7 % (2.0-8.0); NEUTROPHILS # 3.1 10^3/uL (1.5-8.5); NEUTROPHILS % 61.5 % (36.0-66.0); PLATELET COUNT, AUTOMATED 221 10^3/uL (150-450); RED BLOOD COUNT 3.66 10^6/uL (4.00-5.40)
[2022-05-11 13:14] LABS: ALBUMIN 2.9 GM/DL (3.2-5.2); ALT/SGPT 17 U/L (12-78); BILIRUBIN,TOTAL 0.3 MG/DL (0.2-1.0); BLOOD UREA NITROGEN 11 MG/DL (7-18); CALCIUM LEVEL 9.1 MG/DL (8.8-10.2); CARBON DIOXIDE LEVEL 21 MEQ/L (21-32); CHLORIDE LEVEL 112 MEQ/L (98-107); CREATININE FOR GFR 0.63 MG/DL (0.55-1.30); ETHYL ALCOHOL (ETHANOL) < 0.003 % (0.000-0.010); GLOMERULAR FILTRATION RATE > 60.0 (>45); GLUCOSE, FASTING 110 MG/DL (70-100); POTASSIUM SERUM 4.3 MEQ/L (3.5-5.1); SODIUM LEVEL 139 MEQ/L (136-145); TOTAL PROTEIN 6.2 GM/DL (6.4-8.2)
[2022-05-11 13:27] LABS: APPEARANCE, URINE MANUAL HAZY (CLEAR); COLOR, URINE MANUAL YELLOW (YELLOW)
[2022-05-11 13:29] LABS: BILIRUBIN, URINE MANUAL NEGATIVE (NEGATIVE); BLOOD URINE MANUAL NEGATIVE (NEGATIVE); GLUCOSE, URINE (UA) MANUAL NEGATIVE (NEGATIVE); KETONE, URINE MANUAL NEGATIVE (NEGATIVE); LEUKOCYTE ESTERASE, URINE MAN NEGATIVE (NEGATIVE); NITRITE, URINE MANUAL NEGATIVE (NEGATIVE); PROTEIN, URINE MANUAL NEGATIVE (NEGATIVE); UROBILINOGEN, URINE MANUAL NORMAL (NORMAL)
[2022-05-11 13:46] LABS: AMORPHOUS SEDIMENT, URINE SMALL AMOUNT (NEGATIVE); BACTERIA, URINE SMALL AMOUNT; HYALINE CAST, URINE NONE SEEN /lpf (0-1); RBC, URINE 0-1 /hpf (0-3); SQUAMOUS EPITHELIAL CELL URINE MOD AMOUNT /hpf (SMALL AMT); WBC, URINE 0-1 /hpf (0-3)
[2022-05-11 14:11] LABS: AMPHETAMINES LEVEL URINE NEGATIVE (NEGATIVE); BARBITURATES URINE NEGATIVE (NEGATIVE); BENZODIAZEPINES URINE NEGATIVE (NEGATIVE); CANNABINOIDS URINE POSITIVE (NEGATIVE); COCAINE METABOLITE URINE NEGATIVE (NEGATIVE); METHADONE URINE NEGATIVE (NEGATIVE); OPIATES URINE NEGATIVE (NEGATIVE); PHENCYCLIDINE URINE NEGATIVE (NEGATIVE)
[2022-05-11] MEDS ORDERED: TOPA1TAB PO (16:46)
[2022-05-11] MEDS ORDERED: LISI10TA22 PO (16:46)
[2022-05-11] MEDS ORDERED: OXYC-517 PO (16:46)
[2022-05-11] MEDS ORDERED: ZOLP10TA2 PO (16:46)
[2022-05-11] MEDS ORDERED: OMEP40CA5 PO (16:46)
[2022-05-11] MEDS ORDERED: METO1TAB7 PO (16:46)
[2022-05-11] MEDS ORDERED: DIVA500T9 PO (16:46)
[2022-05-11] MEDS ORDERED: MONT10TA97 PO (16:46)
[2022-05-11] MEDS ORDERED: HOME MED LIST COMPLETE! XX SCH (16:50)
[2022-05-11] MEDS ORDERED: PILL CUTTER 1 EACH XX PRN (17:30)
[2022-05-11] MEDS: oxyCODONE 5MG TAB PO PRN (17:51)
[2022-05-11 18:15] VITALS: BP 134/77
[2022-05-11] MEDS: OMEPRAZOLE 20MG CAP PO SCH (18:24)
[2022-05-11] MEDS: DIVALPROEX 500MG *ER* TAB PO SCH (18:25)
[2022-05-11] MEDS: TOPIRAMATE (TopAMAX) 25 MG TAB PO SCH (18:26)
[2022-05-11] MEDS: METOPROLOL SUCC (TopROL XL) 50MG **XL** TAB PO SCH (18:27)
[2022-05-11] MEDS: MONTELUKAST 10 MG TAB PO SCH (20:19)
[2022-05-11] MEDS: zolPIDEM TARTRATE 5 MG TAB PO SCH (20:19)
[2022-05-11] MEDS: busPIRone 5 MG TAB PO SCH (20:19)
[2022-05-11] MEDS: ATORVASTATIN 20 MG TAB PO SCH (20:19)
[2022-05-11] MEDS: DOCUSATE SODIUM 100MG CAPSULE PO SCH (20:19)
[2022-05-11] MEDS ORDERED: RAMELTEON 8 MG TAB (ROZEREM) PO SCH (21:00)
[2022-05-11 22:00] VITALS: BP 101/62
[2022-05-12] MEDS: oxyCODONE 5MG TAB PO PRN ×4 (00:39→20:21)
[2022-05-12 04:50] VITALS: BP 123/70
[2022-05-12] MEDS: NS 1,000 ML IV SCH ×2 (04:57→16:51)
[2022-05-12 07:05] LABS: HEMOGLOBIN 10.1 g/dl (12.0-15.5); MEAN CORPUSCULAR HEMOGLOBIN 31.2 pg (27.0-33.0); MEAN CORPUSCULAR HGB CONC 31.6 g/dl (32.0-36.5); MEAN CORPUSCULAR VOLUME 98.8 fl (80.0-96.0); PLATELET COUNT, AUTOMATED 193 10^3/uL (150-450); RED BLOOD COUNT 3.24 10^6/uL (4.00-5.40); WHITE BLOOD COUNT 5.6 10^3/uL (4.0-10.0)
[2022-05-12 07:40] LABS: BLOOD UREA NITROGEN 9 MG/DL (7-18); CALCIUM LEVEL 8.3 MG/DL (8.8-10.2); CARBON DIOXIDE LEVEL 20 MEQ/L (21-32); CHLORIDE LEVEL 115 MEQ/L (98-107); CREATININE FOR GFR 0.65 MG/DL (0.55-1.30); GLOMERULAR FILTRATION RATE > 60.0 (>45); GLUCOSE, FASTING 87 MG/DL (70-100); POTASSIUM SERUM 3.8 MEQ/L (3.5-5.1); SODIUM LEVEL 142 MEQ/L (136-145)
[2022-05-12] MEDS ORDERED: TEMOZOLOMIDE PO SCH (09:00)
[2022-05-12] MEDS: ENOXAPARIN 40MG/0.4ML SYRINGE (J1650 PER 10MG) SC SCH (09:13)
[2022-05-12] MEDS: OMEPRAZOLE 20MG CAP PO SCH (09:14)
[2022-05-12] MEDS: DIVALPROEX 500MG *ER* TAB PO SCH (09:15)
[2022-05-12] MEDS: TOPIRAMATE (TopAMAX) 25 MG TAB PO SCH (09:15)
[2022-05-12] MEDS: METOPROLOL SUCC (TopROL XL) 50MG **XL** TAB PO SCH (09:16)
[2022-05-12] MEDS: busPIRone 5 MG TAB PO SCH ×2 (09:20→20:21)
[2022-05-12] MEDS: ACETAMINOPHEN TAB 650MG DOSE (2X325MG) PO PRN (12:04)
[2022-05-12 14:27] VITALS: BP 121/68
[2022-05-12 15:28] VITALS: BP_SYST 117; BP_SYST 118; BP_SYST 120; BP_DIAS 65; BP_DIAS 66
[2022-05-12] MEDS: SUMAtriptan SUCCINATE 25 MG TAB PO PRN ×2 (16:45→18:52)
[2022-05-12] MEDS: DOCUSATE SODIUM 100MG CAPSULE PO SCH (20:20)
[2022-05-12] MEDS: ATORVASTATIN 20 MG TAB PO SCH (20:20)
[2022-05-12] MEDS: zolPIDEM TARTRATE 5 MG TAB PO SCH (20:20)
[2022-05-12] MEDS: MONTELUKAST 10 MG TAB PO SCH (20:20)
[2022-05-12 21:00] VITALS: BP 119/68
[2022-05-13] MEDS: SUMAtriptan SUCCINATE 25 MG TAB PO PRN (02:44)
[2022-05-13] MEDS: NS 1,000 ML IV SCH (03:05)
[2022-05-13 04:40] VITALS: BP 127/57
[2022-05-13] MEDS: oxyCODONE 5MG TAB PO PRN ×3 (06:15→17:46)
[2022-05-13] MEDS: ENOXAPARIN 40MG/0.4ML SYRINGE (J1650 PER 10MG) SC SCH (08:11)
[2022-05-13] MEDS: busPIRone 5 MG TAB PO SCH ×2 (08:11→21:30)
[2022-05-13] MEDS: TOPIRAMATE (TopAMAX) 25 MG TAB PO SCH (08:12)
[2022-05-13] MEDS: DIVALPROEX 500MG *ER* TAB PO SCH (08:12)
[2022-05-13] MEDS: OMEPRAZOLE 20MG CAP PO SCH (08:12)
[2022-05-13] MEDS: METOPROLOL SUCC (TopROL XL) 50MG **XL** TAB PO SCH (08:14)
[2022-05-13] MEDS: ACETAMINOPHEN TAB 650MG DOSE (2X325MG) PO PRN (08:18)
[2022-05-13] MEDS ORDERED: BACTRIM 160MG/800MG DS TAB PO SCH (09:00)
[2022-05-13] MEDS ORDERED: oxyCODONE 5MG TAB PO STA (13:10)
[2022-05-13] MEDS: GABAPENTIN 100 MG CAP PO SCH ×2 (13:28→21:25)
[2022-05-13] MEDS: KETOROLAC 30 MG/ML 1ML VIAL IV SCH ×2 (13:29→21:26)
[2022-05-13 14:00] VITALS: BP 115/73
[2022-05-13 20:50] VITALS: BP 132/84
[2022-05-13] MEDS: zolPIDEM TARTRATE 5 MG TAB PO SCH (21:24)
[2022-05-13] MEDS: MONTELUKAST 10 MG TAB PO SCH (21:24)
[2022-05-13] MEDS: DOCUSATE SODIUM 100MG CAPSULE PO SCH (21:25)
[2022-05-13] MEDS: ATORVASTATIN 20 MG TAB PO SCH (21:25)
[2022-05-14] MEDS: KETOROLAC 30 MG/ML 1ML VIAL IV SCH ×2 (02:08→09:02)
[2022-05-14] MEDS: oxyCODONE 5MG TAB PO PRN ×4 (03:55→20:25)
[2022-05-14 06:00] VITALS: BP 103/61
[2022-05-14 08:50] LABS: BLOOD UREA NITROGEN 17 MG/DL (7-18); CALCIUM LEVEL 8.3 MG/DL (8.8-10.2); CARBON DIOXIDE LEVEL 25 MEQ/L (21-32); CHLORIDE LEVEL 107 MEQ/L (98-107); CREATININE FOR GFR 0.71 MG/DL (0.55-1.30); GLOMERULAR FILTRATION RATE > 60.0 (>45); GLUCOSE, FASTING 100 MG/DL (70-100); POTASSIUM SERUM 3.4 MEQ/L (3.5-5.1); SODIUM LEVEL 138 MEQ/L (136-145)
[2022-05-14] MEDS: GABAPENTIN 100 MG CAP PO SCH ×2 (09:02→20:23)
[2022-05-14] MEDS: DIVALPROEX 500MG *ER* TAB PO SCH (09:02)
[2022-05-14] MEDS: METOPROLOL SUCC (TopROL XL) 50MG **XL** TAB PO SCH (09:05)
[2022-05-14] MEDS: OMEPRAZOLE 20MG CAP PO SCH (09:08)
[2022-05-14] MEDS: TOPIRAMATE (TopAMAX) 25 MG TAB PO SCH (09:09)
[2022-05-14] MEDS: ENOXAPARIN 40MG/0.4ML SYRINGE (J1650 PER 10MG) SC SCH (09:10)
[2022-05-14] MEDS: busPIRone 5 MG TAB PO SCH ×2 (09:21→20:27)
[2022-05-14] MEDS ORDERED: COLA100C5 PO (09:46)
[2022-05-14] MEDS ORDERED: APAP325T4 PO (09:46)
[2022-05-14] MEDS ORDERED: GABA-1171 PO (09:46)
[2022-05-14] MEDS ORDERED: SUMA25TA3 PO (09:46)
[2022-05-14] MEDS ORDERED: DEXA2TA PO (09:46)
[2022-05-14] MEDS ORDERED: OXYC-517 PO (09:46)
[2022-05-14] MEDS ORDERED: NARC1SPR NARES (09:55)
[2022-05-14] MEDS ORDERED: POTASSIUM CHLORIDE 10MEQ SR TABLET PO ONE (10:10)
[2022-05-14 14:00] VITALS: BP 105/77
[2022-05-14] MEDS: DOCUSATE SODIUM 100MG CAPSULE PO SCH (20:22)
[2022-05-14] MEDS: ATORVASTATIN 20 MG TAB PO SCH (20:23)
[2022-05-14] MEDS: MONTELUKAST 10 MG TAB PO SCH (20:24)
[2022-05-14] MEDS: zolPIDEM TARTRATE 5 MG TAB PO PRN (20:24)
[2022-05-14 21:00] VITALS: BP 139/85
[2022-05-15] MEDS: oxyCODONE 5MG TAB PO PRN ×3 (04:57→18:35)
[2022-05-15 06:00] VITALS: BP 109/68
[2022-05-15] MEDS: TOPIRAMATE (TopAMAX) 25 MG TAB PO SCH (08:43)
[2022-05-15] MEDS: OMEPRAZOLE 20MG CAP PO SCH (08:43)
[2022-05-15] MEDS: ENOXAPARIN 40MG/0.4ML SYRINGE (J1650 PER 10MG) SC SCH (08:43)
[2022-05-15] MEDS: GABAPENTIN 100 MG CAP PO SCH ×3 (08:43→21:10)
[2022-05-15] MEDS: DIVALPROEX 500MG *ER* TAB PO SCH (08:44)
[2022-05-15] MEDS: METOPROLOL SUCC (TopROL XL) 50MG **XL** TAB PO SCH (08:47)
[2022-05-15] MEDS: busPIRone 5 MG TAB PO SCH ×2 (08:55→21:10)
[2022-05-15] MEDS ORDERED: TOPIRAMATE (TopAMAX) 25 MG TAB PO SCH (09:15)
[2022-05-15] MEDS ORDERED: TOPIRAMATE (TopAMAX) 25 MG TAB PO ONE (09:20)
[2022-05-15] MEDS: BENZONATATE 100MG CAPSULE PO SCH ×3 (11:32→21:10)
[2022-05-15] MEDS: KETOROLAC 30 MG/ML 1ML VIAL IV SCH ×3 (11:54→21:09)
[2022-05-15] MEDS: ACETAMINOPHEN 325 MG TAB PO SCH ×3 (12:16→18:36)
[2022-05-15] MEDS: DEXTROMETHORPHAN 60MG/10ML SUSP 90ML BTL(DELSYM) PO PRN (13:46)
[2022-05-15] MEDS: MORPHINE 15 MG SA TAB PO SCH ×2 (13:51→21:11)
[2022-05-15 14:00] VITALS: BP 111/68
[2022-05-15 20:00] VITALS: BP 100/64
[2022-05-15] MEDS: zolPIDEM TARTRATE 5 MG TAB PO PRN (20:05)
[2022-05-15] MEDS: ATORVASTATIN 20 MG TAB PO SCH (21:10)
[2022-05-15] MEDS: DOCUSATE SODIUM 100MG CAPSULE PO SCH (21:11)
[2022-05-15] MEDS: MONTELUKAST 10 MG TAB PO SCH (21:11)
[2022-05-16] MEDS: ACETAMINOPHEN 325 MG TAB PO SCH ×4 (00:30→17:07)
[2022-05-16] MEDS: KETOROLAC 30 MG/ML 1ML VIAL IV SCH (04:34)
[2022-05-16 05:10] VITALS: BP 102/63
[2022-05-16] MEDS: DEXTROMETHORPHAN 60MG/10ML SUSP 90ML BTL(DELSYM) PO PRN (05:15)
[2022-05-16] MEDS: oxyCODONE 5MG TAB PO PRN ×3 (07:06→17:08)
[2022-05-16] MEDS: DIVALPROEX 500MG *ER* TAB PO SCH (09:01)
[2022-05-16] MEDS: GABAPENTIN 100 MG CAP PO SCH ×3 (09:01→20:01)
[2022-05-16] MEDS: BENZONATATE 100MG CAPSULE PO SCH ×3 (09:01→20:00)
[2022-05-16] MEDS: OMEPRAZOLE 20MG CAP PO SCH (09:01)
[2022-05-16] MEDS: TOPIRAMATE (TopAMAX) 25 MG TAB PO SCH (09:01)
[2022-05-16] MEDS: busPIRone 5 MG TAB PO SCH ×2 (09:02→20:00)
[2022-05-16] MEDS: MORPHINE 15 MG SA TAB PO SCH ×2 (09:02→20:01)
[2022-05-16] MEDS: ENOXAPARIN 40MG/0.4ML SYRINGE (J1650 PER 10MG) SC SCH (09:03)
[2022-05-16] MEDS: METOPROLOL SUCC (TopROL XL) 50MG **XL** TAB PO SCH (09:16)
[2022-05-16] MEDS ORDERED: TOPA1TAB PO (10:55)
[2022-05-16] MEDS ORDERED: BENZ-18 PO (10:55)
[2022-05-16] MEDS ORDERED: GABA-1171 PO (10:55)
[2022-05-16] MEDS ORDERED: MORP15TASA PO (10:55)
[2022-05-16] MEDS ORDERED: DELS30LI8 PO (10:55)
[2022-05-16] MEDS: SUMAtriptan SUCCINATE 25 MG TAB PO PRN (13:06)
[2022-05-16 20:00] VITALS: BP 118/65
[2022-05-16] MEDS: DOCUSATE SODIUM 100MG CAPSULE PO SCH (20:00)
[2022-05-16] MEDS: zolPIDEM TARTRATE 5 MG TAB PO PRN (20:00)
[2022-05-16] MEDS: ATORVASTATIN 20 MG TAB PO SCH (20:00)
[2022-05-16] MEDS: MONTELUKAST 10 MG TAB PO SCH (20:00)
[2022-05-17] MEDS: ACETAMINOPHEN 325 MG TAB PO SCH ×5 (00:09→23:30)
[2022-05-17 00:22] VITALS: BP 142/65
[2022-05-17 04:00] VITALS: BP 103/58
[2022-05-17] MEDS: oxyCODONE 5MG TAB PO PRN (04:43)
[2022-05-17] MEDS ORDERED: POTASSIUM CHLORIDE 10MEQ SR TABLET PO ONE (08:30)
[2022-05-17] MEDS ORDERED: TEMOZOLOMIDE 100 MG PO SCH (09:00)
[2022-05-17] MEDS ORDERED: TEMOZOLOMIDE 20 MG PO SCH (09:00)
[2022-05-17] MEDS ORDERED: TEMOZOLOMIDE 5 MG PO SCH (09:00)
[2022-05-17] MEDS: ENOXAPARIN 40MG/0.4ML SYRINGE (J1650 PER 10MG) SC SCH (11:44)
[2022-05-17] MEDS: OMEPRAZOLE 20MG CAP PO SCH (11:45)
[2022-05-17] MEDS: TOPIRAMATE (TopAMAX) 25 MG TAB PO SCH (11:45)
[2022-05-17] MEDS: DIVALPROEX 500MG *ER* TAB PO SCH (11:45)
[2022-05-17] MEDS: GABAPENTIN 100 MG CAP PO SCH ×3 (11:46→20:12)
[2022-05-17] MEDS: busPIRone 5 MG TAB PO SCH ×2 (11:46→20:14)
[2022-05-17] MEDS: MORPHINE 15 MG SA TAB PO SCH ×2 (11:46→20:12)
[2022-05-17] MEDS: BENZONATATE 100MG CAPSULE PO SCH ×3 (11:47→20:11)
[2022-05-17] MEDS: METOPROLOL SUCC (TopROL XL) 50MG **XL** TAB PO SCH (11:51)
[2022-05-17 12:13] VITALS: BP 147/71
[2022-05-17 13:23] LABS: HEMATOCRIT 33.6 % (36.0-47.0); HEMOGLOBIN 10.8 g/dl (12.0-15.5); MEAN CORPUSCULAR HEMOGLOBIN 31.5 pg (27.0-33.0); MEAN CORPUSCULAR HGB CONC 32.1 g/dl (32.0-36.5); PLATELET COUNT, AUTOMATED 145 10^3/uL (150-450); RED BLOOD COUNT 3.43 10^6/uL (4.00-5.40); WHITE BLOOD COUNT 5.6 10^3/uL (4.0-10.0)
[2022-05-17 13:50] LABS: ALBUMIN 2.7 GM/DL (3.2-5.2); ALT/SGPT 27 U/L (12-78); BILIRUBIN,TOTAL 0.2 MG/DL (0.2-1.0); BLOOD UREA NITROGEN 9 MG/DL (7-18); CALCIUM LEVEL 8.4 MG/DL (8.8-10.2); CARBON DIOXIDE LEVEL 29 MEQ/L (21-32); CHLORIDE LEVEL 108 MEQ/L (98-107); CREATININE FOR GFR 0.54 MG/DL (0.55-1.30); GLOMERULAR FILTRATION RATE > 60.0 (>45); GLUCOSE, FASTING 96 MG/DL (70-100); POTASSIUM SERUM 3.8 MEQ/L (3.5-5.1); SODIUM LEVEL 142 MEQ/L (136-145)
[2022-05-17 20:00] VITALS: BP 118/56
[2022-05-17 20:11] LABS: INR 0.93; PROTHROMBIN TIME 12.7 SECONDS (12.5-14.5)
[2022-05-17] MEDS: MONTELUKAST 10 MG TAB PO SCH (20:11)
[2022-05-17] MEDS: ATORVASTATIN 20 MG TAB PO SCH (20:11)
[2022-05-17] MEDS: DEXTROMETHORPHAN 60MG/10ML SUSP 90ML BTL(DELSYM) PO PRN (20:11)
[2022-05-17 20:12] LABS: PARTIAL THROMBOPLASTIN TIME 30.6 SECONDS (24.8-34.2)
[2022-05-17] MEDS: DOCUSATE SODIUM 100MG CAPSULE PO SCH (20:12)
[2022-05-17] MEDS: zolPIDEM TARTRATE 5 MG TAB PO PRN (20:12)
[2022-05-17 20:13] LABS: FERRITIN 680 NG/ML (8-252); LDH LACTATE DEHYDROGENASE 178 U/L (84-246)
[2022-05-17 20:14] LABS: D-DIMER QUANT 404.45 ng/ml (<500)
[2022-05-17] MEDS ORDERED: ONDANSETRON 4MG 2ML VIAL IV PRN (21:50)
[2022-05-17] MEDS ORDERED: ONDANSETRON 4MG ORAL DISINTEGRATING TAB PO PRN (22:25)
[2022-05-18] MEDS: ACETAMINOPHEN 325 MG TAB PO SCH (03:48)
[2022-05-18 04:00] VITALS: BP 166/81
[2022-05-18 05:51] LABS: HEMATOCRIT 32.5 % (36.0-47.0); HEMOGLOBIN 10.5 g/dl (12.0-15.5); MEAN CORPUSCULAR HEMOGLOBIN 31.5 pg (27.0-33.0); MEAN CORPUSCULAR HGB CONC 32.3 g/dl (32.0-36.5); MEAN CORPUSCULAR VOLUME 97.6 fl (80.0-96.0); PLATELET COUNT, AUTOMATED 150 10^3/uL (150-450); RED BLOOD COUNT 3.33 10^6/uL (4.00-5.40)
[2022-05-18] MEDS ORDERED: SODIUM CHLORIDE 0.9% 1000ML IV ONE (06:10)
[2022-05-18 06:33] LABS: ALBUMIN 2.6 GM/DL (3.2-5.2); ALT/SGPT 33 U/L (12-78); BILIRUBIN,TOTAL 0.3 MG/DL (0.2-1.0); BLOOD UREA NITROGEN 12 MG/DL (7-18); CALCIUM LEVEL 8.2 MG/DL (8.8-10.2); CARBON DIOXIDE LEVEL 26 MEQ/L (21-32); CHLORIDE LEVEL 106 MEQ/L (98-107); CREATININE FOR GFR 0.71 MG/DL (0.55-1.30); GLOMERULAR FILTRATION RATE > 60.0 (>45); GLUCOSE, FASTING 147 MG/DL (70-100); MAGNESIUM LEVEL 1.6 MG/DL (1.8-2.4); POTASSIUM SERUM 3.5 MEQ/L (3.5-5.1); SODIUM LEVEL 139 MEQ/L (136-145); TOTAL PROTEIN 5.7 GM/DL (6.4-8.2)
[2022-05-18] MEDS ORDERED: NS 500 ML IV ONE (06:50)
[2022-05-18] MEDS ORDERED: ALBUTEROL 90 MCG/ACT 8GM HFA INHALER INH PRN (07:00)
[2022-05-18] MEDS ORDERED: PIPERACILLIN/TAZOBACTAM SOD 4.5 GM in D5W MINI-BAG PLUS 50 ML IV ONE (07:00)
[2022-05-18] MEDS ORDERED: diphenhydrAMINE 50MG/ML VIAL (J1200) IV PRN (07:01)
[2022-05-18] MEDS ORDERED: EPINEPHrine INJ 1 MG/ML 1ML AMP IM PRN (07:01)
[2022-05-18] MEDS ORDERED: ALBUTEROL SULFATE 2.5 MG/0.5 ML INH NEB SOLN INH PRN (07:01)
[2022-05-18] MEDS ORDERED: methylPREDNISolone 125MG 2ML VIAL IV PRN (07:01)
[2022-05-18] MEDS: DIVALPROEX 500MG *ER* TAB PO SCH (08:29)
[2022-05-18] MEDS: ENOXAPARIN 40MG/0.4ML SYRINGE (J1650 PER 10MG) SC SCH (08:29)
[2022-05-18] MEDS: GABAPENTIN 100 MG CAP PO SCH ×3 (08:31→19:48)
[2022-05-18] MEDS: BACTRIM 160MG/800MG DS TAB PO SCH (08:31)
[2022-05-18] MEDS: BENZONATATE 100MG CAPSULE PO SCH ×3 (08:31→19:48)
[2022-05-18] MEDS: TOPIRAMATE (TopAMAX) 25 MG TAB PO SCH (08:33)
[2022-05-18] MEDS: METOPROLOL SUCC (TopROL XL) 50MG **XL** TAB PO SCH (08:33)
[2022-05-18] MEDS: MORPHINE 15 MG SA TAB PO SCH ×2 (08:33→19:49)
[2022-05-18] MEDS: busPIRone 5 MG TAB PO SCH ×2 (08:34→19:48)
[2022-05-18] MEDS: OMEPRAZOLE 20MG CAP PO SCH (08:38)
[2022-05-18] MEDS ORDERED: KETOROLAC 30 MG/ML 1ML VIAL IV ONE (08:40)
[2022-05-18] MEDS: guaiFENesin ER 600 MG TAB PO SCH ×2 (09:00→19:48)
[2022-05-18] MEDS ORDERED: MAG SULF 1GM/100ML (MAG RUN) 1 GM in IV 1 EA IV ONE (09:00)
[2022-05-18] MEDS: NS 1,000 ML IV SCH ×3 (09:36→22:41)
[2022-05-18] MEDS ORDERED: BEBTELOVIMAB 175MG 2ML VIAL (EUA) IV ONE (10:00)
[2022-05-18] MEDS ORDERED: LEVALBUTEROL HFA 45MCG/ACT 15 GM INHALER INH PRN (10:30)
[2022-05-18] MEDS: LEVALBUTEROL HFA 45MCG/ACT 15 GM INHALER INH SCH ×3 (11:45→20:01)
[2022-05-18 11:56] VITALS: BP 93/54
[2022-05-18 12:29] VITALS: BP 94/50
[2022-05-18] MEDS: oxyCODONE 5MG TAB PO PRN ×2 (18:22→22:41)
[2022-05-18] MEDS ORDERED: NS 1,000 ML IV ONE ×2 (19:00→20:50)
[2022-05-18 19:41] VITALS: BP 104/56
[2022-05-18] MEDS: DOCUSATE SODIUM 100MG CAPSULE PO SCH (19:47)
[2022-05-18] MEDS: MONTELUKAST 10 MG TAB PO SCH (19:48)
[2022-05-18] MEDS: ATORVASTATIN 20 MG TAB PO SCH (19:57)
[2022-05-18] MEDS: zolPIDEM TARTRATE 5 MG TAB PO PRN (20:04)
[2022-05-19 04:15] VITALS: BP 166/72
[2022-05-19 06:28] LABS: HEMATOCRIT 30.7 % (36.0-47.0); MEAN CORPUSCULAR HEMOGLOBIN 31.4 pg (27.0-33.0); MEAN CORPUSCULAR HGB CONC 32.6 g/dl (32.0-36.5); MEAN CORPUSCULAR VOLUME 96.5 fl (80.0-96.0); PLATELET COUNT, AUTOMATED 171 10^3/uL (150-450); RED BLOOD COUNT 3.18 10^6/uL (4.00-5.40); WHITE BLOOD COUNT 10.1 10^3/uL (4.0-10.0)
[2022-05-19] MEDS: oxyCODONE 5MG TAB PO PRN ×4 (06:34→22:00)
[2022-05-19] MEDS: ACETAMINOPHEN TAB 650MG DOSE (2X325MG) PO PRN (06:35)
[2022-05-19 06:56] LABS: ALBUMIN 2.4 GM/DL (3.2-5.2); ALT/SGPT 37 U/L (12-78); BILIRUBIN,TOTAL 0.2 MG/DL (0.2-1.0); BLOOD UREA NITROGEN 6 MG/DL (7-18); CALCIUM LEVEL 8.1 MG/DL (8.8-10.2); CARBON DIOXIDE LEVEL 22 MEQ/L (21-32); CHLORIDE LEVEL 111 MEQ/L (98-107); CREATININE FOR GFR 0.56 MG/DL (0.55-1.30); GLOMERULAR FILTRATION RATE > 60.0 (>45); GLUCOSE, FASTING 96 MG/DL (70-100); MAGNESIUM LEVEL 1.9 MG/DL (1.8-2.4); POTASSIUM SERUM 3.5 MEQ/L (3.5-5.1); SODIUM LEVEL 141 MEQ/L (136-145); TOTAL PROTEIN 5.4 GM/DL (6.4-8.2)
[2022-05-19] MEDS: LEVALBUTEROL HFA 45MCG/ACT 15 GM INHALER INH SCH ×4 (07:41→21:39)
[2022-05-19 08:26] VITALS: BP 134/60
[2022-05-19] MEDS: GABAPENTIN 100 MG CAP PO SCH ×3 (09:01→20:51)
[2022-05-19] MEDS: BENZONATATE 100MG CAPSULE PO SCH ×3 (09:03→20:51)
[2022-05-19] MEDS: TOPIRAMATE (TopAMAX) 25 MG TAB PO SCH (09:03)
[2022-05-19] MEDS: DIVALPROEX 500MG *ER* TAB PO SCH (09:03)
[2022-05-19] MEDS: OMEPRAZOLE 20MG CAP PO SCH (09:03)
[2022-05-19] MEDS: busPIRone 5 MG TAB PO SCH ×2 (09:04→20:51)
[2022-05-19] MEDS: guaiFENesin ER 600 MG TAB PO SCH ×2 (09:04→20:51)
[2022-05-19] MEDS: MORPHINE 15 MG SA TAB PO SCH ×2 (09:04→20:50)
[2022-05-19] MEDS: ENOXAPARIN 40MG/0.4ML SYRINGE (J1650 PER 10MG) SC SCH (09:05)
[2022-05-19] MEDS: METOPROLOL SUCC (TopROL XL) 50MG **XL** TAB PO SCH (09:05)
[2022-05-19 12:00] VITALS: BP 100/59
[2022-05-19] MEDS: NS 1,000 ML IV SCH (15:36)
[2022-05-19] MEDS ORDERED: KETOROLAC 30 MG/ML 1ML VIAL IV ONE (16:10)
[2022-05-19 19:52] VITALS: BP 100/57
[2022-05-19] MEDS: MONTELUKAST 10 MG TAB PO SCH (20:51)
[2022-05-19] MEDS: zolPIDEM TARTRATE 5 MG TAB PO PRN (20:51)
[2022-05-19] MEDS: DOCUSATE SODIUM 100MG CAPSULE PO SCH (20:51)
[2022-05-19] MEDS: ATORVASTATIN 20 MG TAB PO SCH (20:51)
[2022-05-19] MEDS: DEXTROMETHORPHAN 60MG/10ML SUSP 90ML BTL(DELSYM) PO PRN (21:58)
[2022-05-20] MEDS: NS 1,000 ML IV SCH (01:40)
[2022-05-20 04:00] VITALS: BP 155/89
[2022-05-20] MEDS: oxyCODONE 5MG TAB PO PRN ×2 (05:47→14:37)
[2022-05-20 06:37] LABS: HEMATOCRIT 27.7 % (36.0-47.0); HEMOGLOBIN 8.9 g/dl (12.0-15.5); MEAN CORPUSCULAR HEMOGLOBIN 31.6 pg (27.0-33.0); MEAN CORPUSCULAR HGB CONC 32.1 g/dl (32.0-36.5); MEAN CORPUSCULAR VOLUME 98.2 fl (80.0-96.0); PLATELET COUNT, AUTOMATED 189 10^3/uL (150-450); RED BLOOD COUNT 2.82 10^6/uL (4.00-5.40); WHITE BLOOD COUNT 8.5 10^3/uL (4.0-10.0)
[2022-05-20 07:13] LABS: ALBUMIN 1.9 GM/DL (3.2-5.2); ALT/SGPT 28 U/L (12-78); BILIRUBIN,TOTAL 0.3 MG/DL (0.2-1.0); BLOOD UREA NITROGEN 12 MG/DL (7-18); CALCIUM LEVEL 8.4 MG/DL (8.8-10.2); CARBON DIOXIDE LEVEL 23 MEQ/L (21-32); CHLORIDE LEVEL 111 MEQ/L (98-107); CREATININE FOR GFR 0.54 MG/DL (0.55-1.30); GLOMERULAR FILTRATION RATE > 60.0 (>45); GLUCOSE, FASTING 89 MG/DL (70-100); MAGNESIUM LEVEL 2.2 MG/DL (1.8-2.4); POTASSIUM SERUM 3.9 MEQ/L (3.5-5.1); SODIUM LEVEL 142 MEQ/L (136-145); TOTAL PROTEIN 4.9 GM/DL (6.4-8.2)
[2022-05-20] MEDS: METOPROLOL SUCC (TopROL XL) 50MG **XL** TAB PO SCH (07:33)
[2022-05-20] MEDS: DIVALPROEX 500MG *ER* TAB PO SCH (07:34)
[2022-05-20] MEDS: OMEPRAZOLE 20MG CAP PO SCH (07:34)
[2022-05-20] MEDS: guaiFENesin ER 600 MG TAB PO SCH ×2 (07:34→20:46)
[2022-05-20] MEDS: MORPHINE 15 MG SA TAB PO SCH ×2 (07:34→20:48)
[2022-05-20] MEDS: BACTRIM 160MG/800MG DS TAB PO SCH (07:35)
[2022-05-20] MEDS: GABAPENTIN 100 MG CAP PO SCH ×3 (07:35→20:47)
[2022-05-20] MEDS: dexameTHASONE 20MG/5ML VIAL (J1100 PER 1MG) IV SCH (07:35)
[2022-05-20] MEDS: ENOXAPARIN 40MG/0.4ML SYRINGE (J1650 PER 10MG) SC SCH (07:35)
[2022-05-20] MEDS: TOPIRAMATE (TopAMAX) 25 MG TAB PO SCH (07:36)
[2022-05-20] MEDS: busPIRone 5 MG TAB PO SCH ×2 (07:36→20:47)
[2022-05-20] MEDS: BENZONATATE 100MG CAPSULE PO SCH ×3 (07:36→20:46)
[2022-05-20] MEDS: LEVALBUTEROL HFA 45MCG/ACT 15 GM INHALER INH SCH ×4 (07:44→20:19)
[2022-05-20 12:00] VITALS: BP 95/53
[2022-05-20 19:58] VITALS: BP 132/67
[2022-05-20] MEDS: DOCUSATE SODIUM 100MG CAPSULE PO SCH (20:46)
[2022-05-20] MEDS: ATORVASTATIN 20 MG TAB PO SCH (20:46)
[2022-05-20] MEDS: MONTELUKAST 10 MG TAB PO SCH (20:46)
[2022-05-20] MEDS: zolPIDEM TARTRATE 5 MG TAB PO PRN (20:48)
[2022-05-21 04:33] VITALS: BP 138/73
[2022-05-21] MEDS: LEVALBUTEROL HFA 45MCG/ACT 15 GM INHALER INH SCH ×4 (08:10→20:13)
[2022-05-21 08:27] LABS: HEMATOCRIT 26.8 % (36.0-47.0); HEMOGLOBIN 8.9 g/dl (12.0-15.5); MEAN CORPUSCULAR HEMOGLOBIN 31.7 pg (27.0-33.0); MEAN CORPUSCULAR HGB CONC 33.2 g/dl (32.0-36.5); MEAN CORPUSCULAR VOLUME 95.4 fl (80.0-96.0); PLATELET COUNT, AUTOMATED 257 10^3/uL (150-450); RED BLOOD COUNT 2.81 10^6/uL (4.00-5.40); WHITE BLOOD COUNT 8.9 10^3/uL (4.0-10.0)
[2022-05-21 08:56] LABS: ALBUMIN 1.9 GM/DL (3.2-5.2); ALT/SGPT 29 U/L (12-78); BILIRUBIN,TOTAL 0.2 MG/DL (0.2-1.0); BLOOD UREA NITROGEN 14 MG/DL (7-18); CALCIUM LEVEL 8.4 MG/DL (8.8-10.2); CARBON DIOXIDE LEVEL 19 MEQ/L (21-32); CHLORIDE LEVEL 110 MEQ/L (98-107); CREATININE FOR GFR 0.54 MG/DL (0.55-1.30); GLOMERULAR FILTRATION RATE > 60.0 (>45); GLUCOSE, FASTING 81 MG/DL (70-100); POTASSIUM SERUM 3.4 MEQ/L (3.5-5.1); SODIUM LEVEL 138 MEQ/L (136-145); TOTAL PROTEIN 5.1 GM/DL (6.4-8.2)
[2022-05-21] MEDS: TOPIRAMATE (TopAMAX) 25 MG TAB PO SCH (08:59)
[2022-05-21] MEDS: BENZONATATE 100MG CAPSULE PO SCH ×3 (08:59→20:37)
[2022-05-21] MEDS: DIVALPROEX 500MG *ER* TAB PO SCH (09:00)
[2022-05-21] MEDS: dexameTHASONE 20MG/5ML VIAL (J1100 PER 1MG) IV SCH (09:00)
[2022-05-21] MEDS: GABAPENTIN 100 MG CAP PO SCH ×3 (09:01→20:37)
[2022-05-21] MEDS: ENOXAPARIN 40MG/0.4ML SYRINGE (J1650 PER 10MG) SC SCH (09:01)
[2022-05-21] MEDS: OMEPRAZOLE 20MG CAP PO SCH (09:02)
[2022-05-21] MEDS: busPIRone 5 MG TAB PO SCH ×2 (09:03→20:36)
[2022-05-21] MEDS: METOPROLOL SUCC *XL* 25MG TAB (TopROL *XL*) PO SCH (09:03)
[2022-05-21] MEDS: guaiFENesin ER 600 MG TAB PO SCH ×2 (09:03→20:37)
[2022-05-21] MEDS: MORPHINE 15 MG SA TAB PO SCH ×2 (09:04→20:37)
[2022-05-21 12:00] VITALS: BP 122/66
[2022-05-21] MEDS ORDERED: POTASSIUM CHLORIDE 10MEQ SR TABLET PO ONE (12:10)
[2022-05-21 19:31] VITALS: BP 128/66
[2022-05-21] MEDS: MONTELUKAST 10 MG TAB PO SCH (20:36)
[2022-05-21] MEDS: DOCUSATE SODIUM 100MG CAPSULE PO SCH (20:36)
[2022-05-21] MEDS: zolPIDEM TARTRATE 5 MG TAB PO PRN (20:37)
[2022-05-21] MEDS: ATORVASTATIN 20 MG TAB PO SCH (20:37)
[2022-05-22 03:46] VITALS: BP 160/72
[2022-05-22] MEDS: ACETAMINOPHEN TAB 650MG DOSE (2X325MG) PO PRN (03:53)
[2022-05-22] MEDS: oxyCODONE 5MG TAB PO PRN ×3 (03:54→16:09)
[2022-05-22 08:18] LABS: HEMATOCRIT 29.6 % (36.0-47.0); HEMOGLOBIN 9.6 g/dl (12.0-15.5); MEAN CORPUSCULAR HEMOGLOBIN 31.1 pg (27.0-33.0); MEAN CORPUSCULAR HGB CONC 32.4 g/dl (32.0-36.5); MEAN CORPUSCULAR VOLUME 95.8 fl (80.0-96.0); PLATELET COUNT, AUTOMATED 338 10^3/uL (150-450); RED BLOOD COUNT 3.09 10^6/uL (4.00-5.40)
[2022-05-22] MEDS: LEVALBUTEROL HFA 45MCG/ACT 15 GM INHALER INH SCH ×4 (08:37→20:00)
[2022-05-22 08:53] LABS: ALBUMIN 2.1 GM/DL (3.2-5.2); ALT/SGPT 27 U/L (12-78); BILIRUBIN,TOTAL 0.2 MG/DL (0.2-1.0); BLOOD UREA NITROGEN 15 MG/DL (7-18); CALCIUM LEVEL 8.4 MG/DL (8.8-10.2); CARBON DIOXIDE LEVEL 25 MEQ/L (21-32); CHLORIDE LEVEL 110 MEQ/L (98-107); CREATININE FOR GFR 0.54 MG/DL (0.55-1.30); GLOMERULAR FILTRATION RATE > 60.0 (>45); GLUCOSE, FASTING 84 MG/DL (70-100); POTASSIUM SERUM 3.9 MEQ/L (3.5-5.1); SODIUM LEVEL 140 MEQ/L (136-145); TOTAL PROTEIN 5.5 GM/DL (6.4-8.2)
[2022-05-22] MEDS: dexameTHASONE 20MG/5ML VIAL (J1100 PER 1MG) IV SCH (09:39)
[2022-05-22] MEDS: ENOXAPARIN 40MG/0.4ML SYRINGE (J1650 PER 10MG) SC SCH (09:39)
[2022-05-22] MEDS: busPIRone 5 MG TAB PO SCH ×2 (09:40→20:04)
[2022-05-22] MEDS: GABAPENTIN 100 MG CAP PO SCH ×3 (09:40→20:05)
[2022-05-22] MEDS: TOPIRAMATE (TopAMAX) 25 MG TAB PO SCH (09:40)
[2022-05-22] MEDS: OMEPRAZOLE 20MG CAP PO SCH (09:40)
[2022-05-22] MEDS: DIVALPROEX 500MG *ER* TAB PO SCH (09:40)
[2022-05-22] MEDS: MORPHINE 15 MG SA TAB PO SCH ×2 (09:41→20:05)
[2022-05-22] MEDS: BENZONATATE 100MG CAPSULE PO SCH ×3 (09:41→20:05)
[2022-05-22] MEDS: guaiFENesin ER 600 MG TAB PO SCH ×2 (09:41→20:04)
[2022-05-22] MEDS: METOPROLOL SUCC *XL* 25MG TAB (TopROL *XL*) PO SCH (09:45)
[2022-05-22 14:00] VITALS: BP 156/70
[2022-05-22] MEDS: lisinopriL 5 MG TAB PO SCH (16:07)
[2022-05-22 19:32] VITALS: BP 157/88
[2022-05-22] MEDS: zolPIDEM TARTRATE 5 MG TAB PO PRN (20:04)
[2022-05-22] MEDS: DOCUSATE SODIUM 100MG CAPSULE PO SCH (20:05)
[2022-05-22] MEDS: ATORVASTATIN 20 MG TAB PO SCH (20:05)
[2022-05-22] MEDS: MONTELUKAST 10 MG TAB PO SCH (20:05)
[2022-05-23] MEDS: oxyCODONE 5MG TAB PO PRN ×3 (03:52→23:23)
[2022-05-23 04:00] VITALS: BP 162/94
[2022-05-23 06:26] LABS: HEMATOCRIT 30.6 % (36.0-47.0); HEMOGLOBIN 10.2 g/dl (12.0-15.5); MEAN CORPUSCULAR HEMOGLOBIN 31.8 pg (27.0-33.0); MEAN CORPUSCULAR HGB CONC 33.3 g/dl (32.0-36.5); MEAN CORPUSCULAR VOLUME 95.3 fl (80.0-96.0); PLATELET COUNT, AUTOMATED 410 10^3/uL (150-450); RED BLOOD COUNT 3.21 10^6/uL (4.00-5.40); WHITE BLOOD COUNT 10.3 10^3/uL (4.0-10.0)
[2022-05-23 07:09] LABS: ALBUMIN 2.3 GM/DL (3.2-5.2); ALT/SGPT 26 U/L (12-78); BILIRUBIN,TOTAL 0.3 MG/DL (0.2-1.0); BLOOD UREA NITROGEN 12 MG/DL (7-18); CALCIUM LEVEL 8.7 MG/DL (8.8-10.2); CARBON DIOXIDE LEVEL 28 MEQ/L (21-32); CHLORIDE LEVEL 105 MEQ/L (98-107); GLOMERULAR FILTRATION RATE > 60.0 (>45); GLUCOSE, FASTING 77 MG/DL (70-100); POTASSIUM SERUM 3.6 MEQ/L (3.5-5.1); SODIUM LEVEL 139 MEQ/L (136-145); TOTAL PROTEIN 5.8 GM/DL (6.4-8.2)
[2022-05-23] MEDS ORDERED: KETOROLAC 30 MG/ML 1ML VIAL IV ONE (07:55)
[2022-05-23] MEDS: LEVALBUTEROL HFA 45MCG/ACT 15 GM INHALER INH SCH ×4 (08:07→19:03)
[2022-05-23] MEDS: OMEPRAZOLE 20MG CAP PO SCH (08:52)
[2022-05-23] MEDS: METOPROLOL SUCC (TopROL XL) 50MG **XL** TAB PO SCH (08:52)
[2022-05-23] MEDS: guaiFENesin ER 600 MG TAB PO SCH ×2 (08:53→20:09)
[2022-05-23] MEDS: BACTRIM 160MG/800MG DS TAB PO SCH (08:53)
[2022-05-23] MEDS: TOPIRAMATE (TopAMAX) 25 MG TAB PO SCH (08:53)
[2022-05-23] MEDS: lisinopriL 5 MG TAB PO SCH (08:53)
[2022-05-23] MEDS: BENZONATATE 100MG CAPSULE PO SCH ×3 (08:54→20:09)
[2022-05-23] MEDS: GABAPENTIN 100 MG CAP PO SCH ×3 (08:54→20:08)
[2022-05-23] MEDS: MORPHINE 15 MG SA TAB PO SCH ×2 (08:55→20:08)
[2022-05-23] MEDS: busPIRone 5 MG TAB PO SCH ×2 (08:55→20:07)
[2022-05-23] MEDS: DIVALPROEX 500MG *ER* TAB PO SCH (08:55)
[2022-05-23] MEDS ORDERED: METOPROLOL SUCC *XL* 25MG TAB (TopROL *XL*) PO SCH ×2 (09:00)
[2022-05-23] MEDS: ENOXAPARIN 40MG/0.4ML SYRINGE (J1650 PER 10MG) SC SCH (09:05)
[2022-05-23 14:15] VITALS: BP 130/82
[2022-05-23] MEDS ORDERED: ACYC1TAB PO (15:02)
[2022-05-23] MEDS ORDERED: NARC1SPR NARES (15:08)
[2022-05-23 20:00] VITALS: BP 132/98
[2022-05-23] MEDS: ATORVASTATIN 20 MG TAB PO SCH (20:08)
[2022-05-23] MEDS: DOCUSATE SODIUM 100MG CAPSULE PO SCH (20:08)
[2022-05-23] MEDS: ACYCLOVIR 200 MG CAPSULE PO SCH (20:09)
[2022-05-23] MEDS: MONTELUKAST 10 MG TAB PO SCH (20:09)
[2022-05-23] MEDS: zolPIDEM TARTRATE 5 MG TAB PO PRN (23:24)
[2022-05-24 04:00] VITALS: BP 138/76
[2022-05-24] MEDS: oxyCODONE 5MG TAB PO PRN ×4 (06:55→20:31)
[2022-05-24 07:44] LABS: HEMATOCRIT 31.6 % (36.0-47.0); HEMOGLOBIN 10.3 g/dl (12.0-15.5); MEAN CORPUSCULAR HGB CONC 32.6 g/dl (32.0-36.5); MEAN CORPUSCULAR VOLUME 95.2 fl (80.0-96.0); PLATELET COUNT, AUTOMATED 416 10^3/uL (150-450); RED BLOOD COUNT 3.32 10^6/uL (4.00-5.40); WHITE BLOOD COUNT 10.2 10^3/uL (4.0-10.0)
[2022-05-24] MEDS: LEVALBUTEROL HFA 45MCG/ACT 15 GM INHALER INH SCH ×4 (08:00→20:00)
[2022-05-24 08:05] LABS: ALBUMIN 2.4 GM/DL (3.2-5.2); ALT/SGPT 24 U/L (12-78); BILIRUBIN,TOTAL 0.3 MG/DL (0.2-1.0); BLOOD UREA NITROGEN 15 MG/DL (7-18); CALCIUM LEVEL 8.8 MG/DL (8.8-10.2); CARBON DIOXIDE LEVEL 24 MEQ/L (21-32); CHLORIDE LEVEL 104 MEQ/L (98-107); CREATININE FOR GFR 0.71 MG/DL (0.55-1.30); GLOMERULAR FILTRATION RATE > 60.0 (>45); GLUCOSE, FASTING 83 MG/DL (70-100); POTASSIUM SERUM 3.6 MEQ/L (3.5-5.1); SODIUM LEVEL 137 MEQ/L (136-145); TOTAL PROTEIN 5.9 GM/DL (6.4-8.2)
[2022-05-24] MEDS: ENOXAPARIN 40MG/0.4ML SYRINGE (J1650 PER 10MG) SC SCH (08:25)
[2022-05-24] MEDS: BENZONATATE 100MG CAPSULE PO SCH ×3 (08:25→20:31)
[2022-05-24] MEDS: busPIRone 5 MG TAB PO SCH ×2 (08:25→20:30)
[2022-05-24] MEDS: GABAPENTIN 100 MG CAP PO SCH ×3 (08:25→20:27)
[2022-05-24] MEDS: DIVALPROEX 500MG *ER* TAB PO SCH (08:26)
[2022-05-24] MEDS: ACYCLOVIR 200 MG CAPSULE PO SCH ×2 (08:26→20:27)
[2022-05-24] MEDS: TOPIRAMATE (TopAMAX) 25 MG TAB PO SCH (08:27)
[2022-05-24] MEDS: MORPHINE 15 MG SA TAB PO SCH ×2 (08:27→20:26)
[2022-05-24] MEDS: OMEPRAZOLE 20MG CAP PO SCH (08:27)
[2022-05-24] MEDS: guaiFENesin ER 600 MG TAB PO SCH ×2 (08:28→20:31)
[2022-05-24] MEDS: lisinopriL 5 MG TAB PO SCH (08:28)
[2022-05-24] MEDS: METOPROLOL SUCC (TopROL XL) 50MG **XL** TAB PO SCH (08:30)
[2022-05-24] MEDS ORDERED: DELS30LI8 PO (09:56)
[2022-05-24] MEDS ORDERED: MUCI600T31 PO (09:56)
[2022-05-24] MEDS ORDERED: ACYC200C8 PO (09:56)
[2022-05-24] MEDS ORDERED: LIDO1PAD TOP (09:56)
[2022-05-24] MEDS ORDERED: MIRA3350 PO (10:01)
[2022-05-24] MEDS ORDERED: SENN-80 PO (10:01)
[2022-05-24 12:00] VITALS: BP 137/73
[2022-05-24] MEDS: DOCUSATE SODIUM 100MG CAPSULE PO SCH (20:27)
[2022-05-24] MEDS: ATORVASTATIN 20 MG TAB PO SCH (20:30)
[2022-05-24] MEDS: MONTELUKAST 10 MG TAB PO SCH (20:31)
[2022-05-24] MEDS: SUMAtriptan SUCCINATE 25 MG TAB PO PRN (20:31)
[2022-05-25] MEDS: zolPIDEM TARTRATE 5 MG TAB PO PRN (00:02)
[2022-05-25 04:26] VITALS: BP 110/56
[2022-05-25] MEDS: oxyCODONE 5MG TAB PO PRN ×3 (04:26→15:56)
[2022-05-25] MEDS: LEVALBUTEROL HFA 45MCG/ACT 15 GM INHALER INH SCH ×4 (08:00→19:29)
[2022-05-25] MEDS: DIVALPROEX 500MG *ER* TAB PO SCH (08:27)
[2022-05-25] MEDS: GABAPENTIN 100 MG CAP PO SCH ×3 (08:27→20:25)
[2022-05-25] MEDS: TOPIRAMATE (TopAMAX) 25 MG TAB PO SCH (08:27)
[2022-05-25] MEDS: ENOXAPARIN 40MG/0.4ML SYRINGE (J1650 PER 10MG) SC SCH (08:27)
[2022-05-25] MEDS: MORPHINE 15 MG SA TAB PO SCH ×2 (08:28→20:24)
[2022-05-25] MEDS: ACYCLOVIR 200 MG CAPSULE PO SCH ×2 (08:28→20:25)
[2022-05-25] MEDS: BENZONATATE 100MG CAPSULE PO SCH ×3 (08:28→20:24)
[2022-05-25] MEDS: OMEPRAZOLE 20MG CAP PO SCH (08:28)
[2022-05-25] MEDS: busPIRone 5 MG TAB PO SCH ×2 (08:29→20:24)
[2022-05-25] MEDS: METOPROLOL SUCC (TopROL XL) 50MG **XL** TAB PO SCH (08:29)
[2022-05-25] MEDS: guaiFENesin ER 600 MG TAB PO SCH ×2 (08:29→20:25)
[2022-05-25] MEDS: lisinopriL 5 MG TAB PO SCH (08:29)
[2022-05-25] MEDS: BACTRIM 160MG/800MG DS TAB PO SCH (08:29)
[2022-05-25] MEDS: SUMAtriptan SUCCINATE 25 MG TAB PO PRN (16:05)
[2022-05-25] MEDS: MONTELUKAST 10 MG TAB PO SCH (20:24)
[2022-05-25] MEDS: ATORVASTATIN 20 MG TAB PO SCH (20:25)
[2022-05-25] MEDS: DOCUSATE SODIUM 100MG CAPSULE PO SCH (20:25)
[2022-05-26] MEDS: oxyCODONE 5MG TAB PO PRN ×4 (00:09→16:15)
[2022-05-26 04:00] VITALS: BP 99/60
[2022-05-26] MEDS: LEVALBUTEROL HFA 45MCG/ACT 15 GM INHALER INH SCH ×4 (08:00→20:00)
[2022-05-26] MEDS: ENOXAPARIN 40MG/0.4ML SYRINGE (J1650 PER 10MG) SC SCH (09:10)
[2022-05-26] MEDS: DIVALPROEX 500MG *ER* TAB PO SCH (09:10)
[2022-05-26] MEDS: TOPIRAMATE (TopAMAX) 25 MG TAB PO SCH (09:10)
[2022-05-26] MEDS: MORPHINE 15 MG SA TAB PO SCH ×2 (09:11→21:33)
[2022-05-26] MEDS: OMEPRAZOLE 20MG CAP PO SCH (09:11)
[2022-05-26] MEDS: GABAPENTIN 100 MG CAP PO SCH ×3 (09:12→21:32)
[2022-05-26] MEDS: guaiFENesin ER 600 MG TAB PO SCH ×2 (09:12→21:32)
[2022-05-26] MEDS: BENZONATATE 100MG CAPSULE PO SCH ×3 (09:12→21:31)
[2022-05-26] MEDS: ACYCLOVIR 200 MG CAPSULE PO SCH ×2 (09:12→21:32)
[2022-05-26] MEDS: busPIRone 5 MG TAB PO SCH ×2 (09:12→21:32)
[2022-05-26] MEDS: METOPROLOL SUCC (TopROL XL) 50MG **XL** TAB PO SCH (09:13)
[2022-05-26] MEDS: lisinopriL 5 MG TAB PO SCH (09:13)
[2022-05-26] MEDS: SUMAtriptan SUCCINATE 25 MG TAB PO PRN (11:26)
[2022-05-26] MEDS: DOCUSATE SODIUM 100MG CAPSULE PO SCH (21:31)
[2022-05-26] MEDS: MONTELUKAST 10 MG TAB PO SCH (21:32)
[2022-05-26] MEDS: ATORVASTATIN 20 MG TAB PO SCH (21:32)
[2022-05-26] MEDS: zolPIDEM TARTRATE 5 MG TAB PO PRN (21:34)
[2022-05-27 04:49] VITALS: BP 101/66
[2022-05-27] MEDS: LEVALBUTEROL HFA 45MCG/ACT 15 GM INHALER INH SCH ×4 (08:00→20:00)
[2022-05-27] MEDS: GABAPENTIN 100 MG CAP PO SCH ×3 (09:18→20:08)
[2022-05-27] MEDS: guaiFENesin ER 600 MG TAB PO SCH ×2 (09:19→20:08)
[2022-05-27] MEDS: DIVALPROEX 500MG *ER* TAB PO SCH (09:19)
[2022-05-27] MEDS: busPIRone 5 MG TAB PO SCH ×2 (09:20→20:09)
[2022-05-27] MEDS: BENZONATATE 100MG CAPSULE PO SCH ×3 (09:21→20:08)
[2022-05-27] MEDS: ACYCLOVIR 200 MG CAPSULE PO SCH (09:21)
[2022-05-27] MEDS: ENOXAPARIN 40MG/0.4ML SYRINGE (J1650 PER 10MG) SC SCH (09:22)
[2022-05-27 09:25] VITALS: BP 126/71
[2022-05-27] MEDS: METOPROLOL SUCC (TopROL XL) 50MG **XL** TAB PO SCH (09:25)
[2022-05-27] MEDS: BACTRIM 160MG/800MG DS TAB PO SCH (09:26)
[2022-05-27] MEDS: TOPIRAMATE (TopAMAX) 25 MG TAB PO SCH (09:26)
[2022-05-27] MEDS: lisinopriL 5 MG TAB PO SCH (09:27)
[2022-05-27] MEDS: OMEPRAZOLE 20MG CAP PO SCH (09:27)
[2022-05-27] MEDS: MORPHINE 15 MG SA TAB PO SCH ×2 (09:28→20:09)
[2022-05-27] MEDS ORDERED: HYOSCYAMINE SULFATE 0.125 MG SUBL TABLET PO PRN (12:55)
[2022-05-27] MEDS: MORPHINE 10MG/0.5ML ORAL CONCENTRATE SOLUTION U/D SL PRN ×3 (14:01→21:30)
[2022-05-27] MEDS: DOCUSATE SODIUM 100MG CAPSULE PO SCH (20:08)
[2022-05-27] MEDS: zolPIDEM TARTRATE 5 MG TAB PO PRN (20:08)
[2022-05-27] MEDS: LORazepam 1 MG TAB PO PRN (21:29)
[2022-05-28] MEDS: MORPHINE 10MG/0.5ML ORAL CONCENTRATE SOLUTION U/D SL PRN ×4 (03:30→23:28)
[2022-05-28] MEDS: LORazepam 1 MG TAB PO PRN ×2 (03:30→10:05)
[2022-05-28] MEDS: LEVALBUTEROL HFA 45MCG/ACT 15 GM INHALER INH SCH ×3 (07:10→15:02)
[2022-05-28] MEDS: MORPHINE 15 MG SA TAB PO SCH ×2 (10:05→20:01)
[2022-05-28] MEDS: DIVALPROEX 500MG *ER* TAB PO SCH (10:06)
[2022-05-28] MEDS: GABAPENTIN 100 MG CAP PO SCH ×3 (10:06→20:00)
[2022-05-28] MEDS: BENZONATATE 100MG CAPSULE PO SCH ×3 (10:06→20:00)
[2022-05-28] MEDS: busPIRone 5 MG TAB PO SCH ×2 (10:07→20:01)
[2022-05-28] MEDS: guaiFENesin ER 600 MG TAB PO SCH ×2 (10:07→20:01)
[2022-05-28] MEDS: TOPIRAMATE (TopAMAX) 25 MG TAB PO SCH (10:07)
[2022-05-28] MEDS: DOCUSATE SODIUM 100MG CAPSULE PO SCH (19:59)
[2022-05-28] MEDS: ACETAMINOPHEN TAB 650MG DOSE (2X325MG) PO PRN (20:10)
[2022-05-29] MEDS: LORazepam 1 MG TAB PO PRN (04:48)
[2022-05-29] MEDS: MORPHINE 10MG/0.5ML ORAL CONCENTRATE SOLUTION U/D SL PRN ×3 (04:49→17:33)
[2022-05-29] MEDS: LEVALBUTEROL HFA 45MCG/ACT 15 GM INHALER INH SCH ×4 (07:32→20:00)
[2022-05-29] MEDS: busPIRone 5 MG TAB PO SCH ×2 (08:25→20:36)
[2022-05-29] MEDS: MORPHINE 15 MG SA TAB PO SCH ×2 (08:25→20:37)
[2022-05-29] MEDS: TOPIRAMATE (TopAMAX) 25 MG TAB PO SCH (08:26)
[2022-05-29] MEDS: DIVALPROEX 500MG *ER* TAB PO SCH (08:26)
[2022-05-29] MEDS: BENZONATATE 100MG CAPSULE PO SCH ×3 (08:26→20:36)
[2022-05-29] MEDS: guaiFENesin ER 600 MG TAB PO SCH ×2 (08:26→20:36)
[2022-05-29] MEDS: GABAPENTIN 100 MG CAP PO SCH ×3 (08:26→20:36)
[2022-05-29] MEDS: DOCUSATE SODIUM 100MG CAPSULE PO SCH (20:37)
[2022-05-30] MEDS: MORPHINE 10MG/0.5ML ORAL CONCENTRATE SOLUTION U/D SL PRN (02:02)
[2022-05-30] MEDS: LEVALBUTEROL HFA 45MCG/ACT 15 GM INHALER INH SCH ×4 (08:00→20:00)
[2022-05-30] MEDS: BENZONATATE 100MG CAPSULE PO SCH ×3 (08:08→20:00)
[2022-05-30] MEDS: MORPHINE 15 MG SA TAB PO SCH ×2 (08:08→20:00)
[2022-05-30] MEDS: TOPIRAMATE (TopAMAX) 25 MG TAB PO SCH (08:08)
[2022-05-30] MEDS: GABAPENTIN 100 MG CAP PO SCH ×3 (08:09→19:59)
[2022-05-30] MEDS: guaiFENesin ER 600 MG TAB PO SCH ×2 (08:09→20:00)
[2022-05-30] MEDS: DIVALPROEX 500MG *ER* TAB PO SCH (08:09)
[2022-05-30] MEDS: busPIRone 5 MG TAB PO SCH ×2 (08:10→20:00)
[2022-05-30] MEDS: DOCUSATE SODIUM 100MG CAPSULE PO SCH (19:59)
[2022-05-30] MEDS: zolPIDEM TARTRATE 5 MG TAB PO PRN (20:00)
[2022-05-31] MEDS: LEVALBUTEROL HFA 45MCG/ACT 15 GM INHALER INH SCH ×2 (08:38→12:07)
[2022-05-31] MEDS ORDERED: ATIV1TAB7 PO (09:13)
[2022-05-31] MEDS ORDERED: HYOS125TA PO (09:13)
[2022-05-31] MEDS ORDERED: MORP1SOL SL (09:13)
[2022-05-31] MEDS ORDERED: AMBI5TAB PO (09:13)
[2022-05-31] MEDS: TOPIRAMATE (TopAMAX) 25 MG TAB PO SCH (09:45)
[2022-05-31] MEDS: guaiFENesin ER 600 MG TAB PO SCH (09:45)
[2022-05-31] MEDS: MORPHINE 15 MG SA TAB PO SCH (09:46)
[2022-05-31] MEDS: GABAPENTIN 100 MG CAP PO SCH (09:46)
[2022-05-31] MEDS: DIVALPROEX 500MG *ER* TAB PO SCH (09:46)
[2022-05-31] MEDS: BENZONATATE 100MG CAPSULE PO SCH (09:46)
[2022-05-31] MEDS: busPIRone 5 MG TAB PO SCH (09:46)
== END 2022-05-31 13:35 | disposition home or self-care (01) | DRG 54 ==
LOC: M ED 11:09 → M ED INP 11:10 → ENRESERV 17:20 → M MSPAV 18:07 → OBSVTOIN 05-13 13:33 → M 4MAIN 05-17 00:18 → M MS5PR 05-30 19:45
PROVIDERS: ADMIT Student in an Organized Health Care Education/Training Program; ATTEND Student in an Organized Health Care Education/Training Program
PROC: 3E0333Z Introduction of Anti-inflammatory into Peripheral Vein, Percutaneous Approach (ICD-10-PCS; principal; 2022-05-20)
DX: C71.1 Malignant neoplasm of frontal lobe (principal); G93.6 Cerebral edema; U07.1 COVID-19; A41.9 Sepsis, unspecified organism; I69.354 Hemiplegia and hemiparesis following cerebral infarction affecting left non-dominant side; R47.01 Aphasia; Z66 Do not resuscitate; R26.89 Other abnormalities of gait and mobility; E78.5 Hyperlipidemia, unspecified; I10 Essential (primary) hypertension; I25.10 Atherosclerotic heart disease of native coronary artery without angina pectoris; F39 Unspecified mood [affective] disorder; Z85.038 Personal history of other malignant neoplasm of large intestine; K21.9 Gastro-esophageal reflux disease without esophagitis; G43.909 Migraine, unspecified, not intractable, without status migrainosus; G47.00 Insomnia, unspecified; Z79.899 Other long term (current) drug therapy; Z88.8 Allergy status to other drugs, medicaments and biological substances; Z20.822 Contact with and (suspected) exposure to COVID-19; S70.02XA Contusion of left hip, initial encounter; W06.XXXA Fall from bed, initial encounter; Y92.009 Unspecified place in unspecified non-institutional (private) residence as the place of occurrence of the external cause; I95.9 Hypotension, unspecified; E83.42 Hypomagnesemia; R33.9 Retention of urine, unspecified; D64.9 Anemia, unspecified

== ENCOUNTER 2022-05-19 16:00 | Outpatient (RCR) | payer MEDICARE ==
[~2022-05-19 16:00] MED LIST changes: +BENZ-18 PO; +COLA100C5 PO; +DELS30LI8 PO; +DEXA2TA PO; +GABA-1171 PO; +MORP15TASA PO; +NARC1SPR NARES; +SUMA25TA3 PO; -TEMOZOLOMIDE PO SCH
[2022-05-20] MEDS ORDERED: PROHANCE 279.3MG/ML 15ML VIAL As Ordered ONE (16:57)
[2022-05-23] MEDS ORDERED: ACYC1TAB PO (15:02)
[2022-05-23] MEDS ORDERED: NARC1SPR NARES (15:08)
[2022-05-24] MEDS ORDERED: ACYC200C8 PO (09:56)
[2022-05-24] MEDS ORDERED: MUCI600T31 PO (09:56)
[2022-05-24] MEDS ORDERED: LIDO1PAD TOP (09:56)
[2022-05-24] MEDS ORDERED: DELS30LI8 PO (09:56)
[2022-05-24] MEDS ORDERED: SENN-80 PO (10:01)
[2022-05-24] MEDS ORDERED: MIRA3350 PO (10:01)
[2022-05-31] MEDS ORDERED: AMBI5TAB PO (09:13)
[2022-05-31] MEDS ORDERED: HYOS125TA PO (09:13)
[2022-05-31] MEDS ORDERED: MORP1SOL SL (09:13)
[2022-05-31] MEDS ORDERED: ATIV1TAB7 PO (09:13)
== END 2022-05-30 ==
LOC: M ONCR 16:00
PROVIDERS: ATTEND General Practice
DX: C71.2 Malignant neoplasm of temporal lobe (principal)
CPT/HCPCS: 77300; 77301; 77338; 77470; A9576